=== PATIENT | female | born 1985 | race Caucasian/White ===

== ENCOUNTER 2019-03-25 13:30 | Outpatient (RCR) | payer BC, SELFPAY ==
[2019-02-01 09:59] LABS: Hematocrit 35.4 % (37.0-47.0); Hemoglobin 11.6 g/dL (12.0-15.0)
[2019-02-01 10:11] LABS: Glucose 1 Hour PP 50gm Dose 119 mg/dL
[2019-02-01 11:00] LABS: HIV 1/2 Ab P24 Ag Result Negative (Negative); Hepatitis C Virus Antibody Negative (Negative)
[2019-02-01] MEDS: RHO(D) IMMUNE GLOBULIN 300 MCG SYRINGE IM (15:17)
[2019-02-04 08:23] LABS: Rapid Plasma Reagin Non-Reactive (NonReactive)
== END 2019-04-19 11:43 | disposition home or self-care (01) ==
LOC: ANHOBOP 13:30
PROVIDERS: Visit Provider Advanced Practice Midwife
DX: Z36.89 Encounter for other specified antenatal screening (principal); Z29.13 Encounter for prophylactic Rho(D) immune globulin; O36.0990 Maternal care for other rhesus isoimmunization, unspecified trimester, not applicable or unspecified; Z3A.00 Weeks of gestation of pregnancy not specified
CPT/HCPCS: 36415; 82947; 85014; 85018; 86592; 86703; 86803; 86850; 86900; 86901; 90384; 96372; G0432; J2790

== ENCOUNTER 2019-04-18 23:00 | Inpatient (IN) | payer BC, SELFPAY ==
--- NOTE | 2019-04-18 23:00 | LDADM ---
This patient, Patsy Bertrand, was admitted to Labor/Delivery/Recovery 106 on 04/18/19 at 23:00. Plans for labor, pain management and were discussed with patient. Patient/family oriented to hospital policies and general routines including ID bracelet, bed and alarms, visiting hours, pain management, procedures, bathroom and other care routines, personal items, smoking policy, room service/diet and guest tray routines, security routines, and visiting hours. Patient/Family are encouraged to report perceived risks to care and to ask questions if they do not understand what they are told or what they should do. See OBIX for further documentation.
[2019-04-18 23:30] VITALS: TEMP 36.6; BMI 27.6
[2019-04-18 23:33] VITALS: BP 107/80; PULSE 137
[2019-04-18 23:36] LABS: Basophils Percent Auto 0.1 % (0.2-1.2); Eosinophils Absolute Auto 0.1 K/mm3 (0-0.3); Eosinophils Percent Auto 0.7 % (0-4.4); Hematocrit 36.5 % (37.0-47.0); Hemoglobin 12.3 g/dL (12.0-15.0); Immature Granulocyte Absolute 0.03 K/mm3 (0.00-0.031); Immature Granulocyte Percent A 0.4 % (0-0.5); Lymphocytes Absolute Auto 1.47 K/mm3 (0.9-3.2); Mean Corpuscular HGB Conc 33.7 g/dl (32-36); Mean Corpuscular Hemoglobin 30.4 pg (26-34); Mean Corpuscular Volume 90.1 fl (80-100); Mean Platelet Volume 11.5 fl (7.4-10.4); Monocytes Absolute Auto 0.5 K/mm3 (0.1-0.6); Monocytes Percent Auto 7.6 % (2.6-8.5); Neutrophils Absolute Auto 4.6 K/mm3 (1.3-6.7); Neutrophils Percent Auto 69.2 % (45.5-73.1); Platelet Count Result 159 k/mm3 (150-375); Red Blood Count 4.05 M/mm3 (4.2-5.4); Red Cell Distribution Width 12.9 % (11.5-14.5); White Blood Count 6.7 K/mm3 (4.5-10.0)
[2019-04-18 23:46] VITALS: BP 133/103; PULSE 92
[2019-04-19] VITALS (45 sets, daily range): BP systolic 79–119; BP diastolic 43–85; PULSE 69–110; RESP 16; TEMP 36.6–36.9; O2SAT 98–100
[2019-04-19] MEDS: LACTATED RINGERS 1,000 ML 125 ML IV CONT ×2 (03:53→10:20)
--- NOTE | 2019-04-19 06:21 | P.PNAN_ITS ---
Anes - Eval Pre Procedure Procedure: Labor epidural Date/Time: 04/19/19 06:21 Surgeon: Mauricio Bay M.D. Preop Diagnosis: pain during labor Pre Op Diagnosis: srom Patient Data Age: 33 Gender: F Height: 1.68 m Weight: 77.5 kg Last Vital Signs Temp 36.6 C 04/19/19 05:16 Pulse 85 04/19/19 06:17 BP 108/72 04/19/19 06:17 Allergies Allergy/AdvReac Type Severity Reaction Status Date / Time Sulfa (Sulfonamide Allergy Unknown Unknown Verified 03/25/19 13:34 Antibiotics) Home Medications Medication Instructions Recorded Confirmed Type PNV cmb#95-ferrous fumarate-FA 1 tablet PO DAILY 03/25/19 04/18/19 History [] Laboratory Tests 04/18/19 04/18/19 04/18/19 23:26 23:26 23:26 WBC 6.7 K/mm3 K/mm3 (4.5-10.0) RBC 4.05 M/mm3 L M/mm3 (4.2-5.4) Hgb 12.3 g/dL g/dL (12.0-15.0) Hct 36.5 % L % (37.0-47.0) MCV 90.1 fl fl (80-100) MCH 30.4 pg pg (26-34) MCHC 33.7 g/dl g/dl (32-36) RDW 12.9 % % (11.5-14.5) Plt Count 159 k/mm3 k/mm3 (150-375) MPV 11.5 fl H fl (7.4-10.4) Immature Gran % (Auto) 0.4 % % (0-0.5) Neut % (Auto) 69.2 % % (45.5-73.1) Lymph % (Auto) 22.0 % % (18.3-44.2) [place] % (Auto) 7.6 % % (2.6-8.5) Eos % (Auto) 0.7 % % (0-4.4) Baso % (Auto) 0.1 % L % (0.2-1.2) Lymph # (Auto) 1.47 K/mm3 K/mm3 (0.9-3.2) [place] # (Auto) 0.5 K/mm3 K/mm3 (0.1-0.6) Eos # (Auto) 0.1 K/mm3 K/mm3 (0-0.3) Baso # (Auto) 0.0 K/mm3 K/mm3 (0.0-0.1) Abs Immat Gran (auto) 0.03 K/mm3 K/mm3 (0.00-0.031) Absolute Neuts (auto) 4.6 K/mm3 K/mm3 (1.3-6.7) Absolute Nucleated RBC 0.0 K/mm3 K/mm3 (0.0-0.012) Nucleated RBC % 0.0 % % (0.0-0.2) RPR Pending Blood Type B Negative Antibody Screen Negative Patient hx anesthesia problems: none Family hx anesthesia problems: none PMFSH Social History Social History Smoking status: Never smoker Alcohol intake: current Substance use: never Spiritual care concerns: No Exam Day of Procedure 04/19/19 06:21
[2019-04-19 07:31] LABS: Rapid Plasma Reagin Non-Reactive (NonReactive)
--- NOTE | 2019-04-19 07:36 | WPDOBADMIT ---
Obstetrics - Admit Note Admission Note: record reviewed. No pertinent additions to the history and/or any subsequent changes in the physical findings that are not consistent with the expected course of the were found. admitted after ROM. 40 weeks gestation Additions to the history and/or subsequent changes in the physical findings follow. None.
[2019-04-19] MEDS: ONDANSETRON INJ 4 MG/2 ML VIAL IV PUSH (10:33)
--- NOTE | 2019-04-19 12:38 | PM.OBPRVD ---
OB - Delivery Note Procedure Delivery date: 04/19/19 Procedure: vaginal delivery Intrapartal events: None Induction method: none Delivery augmentation: pitocin Delivery monitor: external FHT and external uterine Laceration description: None Estimated blood loss (mL): 270 Anesthesia type: Epidural Disposition: other () Baby Date of : 04/19/19 Time of : 12:13 Weeks of gestation at delivery: 40 Weight (pounds): 8 Weight (ounces): 14 presentation: vertex position: Left Occiput Anterior Placenta delivery description: Spontaneous cord vessel description: 3 Vessels and Clamped/Cut score one minute: 8 score five minutes: 9
[2019-04-19] MEDS: MISOPROSTOL 200 MCG TABLET 800 MCG (12:40)
[2019-04-19] MEDS: METHYLERGONOVINE MALEATE 0.2 MG/ML VIAL IM (12:50)
[2019-04-19] MEDS: BENZOCAINE 20% AER SPR (*SP) 56 GM CAN 1 SPRAY TOPICAL (13:39)
[2019-04-19] MEDS: WITCH HAZEL 40 PADS 1 PAD TOPICAL (13:39)
--- NOTE | 2019-04-19 15:08 | PC.NURSE ---
Patient transferred to post room #283 via wheelchair. Support person present. Oriented to unit, room, information board, rooming in, admission packet and security measures. Patient verbalizes understanding.
[2019-04-20] MEDS: IBUPROFEN 600 MG TABLET PO ×3 (01:59→20:19)
[2019-04-20 05:22] LABS: Hematocrit 34.1 % (37.0-47.0); Hemoglobin 11.5 g/dL (12.0-15.0)
--- NOTE | 2019-04-20 06:51 | WPDANLDPN2 ---
Anes-Prog Note L&D Date/Time: 04/20/19 06:51 Comfortable throughout: labor and delivery Neuraxial method: epidural Epidural/Spinal procedure site: clean & non-tender Neuro status: Neuro function grossly intact. Cardiovascular status: normal Respiratory status: normal Airway patency: baseline Mental status: baseline Post-Op hydration status: normal Vital Signs: Last Vital Signs Temp 36.8 C 04/19/19 18:45 Pulse 84 04/19/19 18:45 Resp 16 04/19/19 18:45 BP 106/77 04/19/19 18:45 Pulse Ox 98 04/19/19 15:00 I/O: Intake & Output 04/19/19 04/19/19 04/20/19 15:59 23:59 07:59 Intake Total 2500 Output Total 230 Balance 2270 Post-procedural complaints: none Patient feedback: Patient satisfied with anesthetic care.
[2019-04-20 08:00] VITALS: BP 118/68; PULSE 62; RESP 14; TEMP 36.6
[2019-04-20] MEDS: MULTIVIT/MIN/PREN/FOL AC/IRON TABLET 1 TAB PO (08:40)
[2019-04-20] MEDS: DOCUSATE SODIUM 100 MG CAPSULE PO (08:40)
--- NOTE | 2019-04-20 08:49 | PM.OBPNVD ---
OB - PN: Subj Subjective Date/time seen: 04/20/19 08:49 Patient comments: no complaints baby status: doing well [place] feeding status: exclusively breast feeding OB - PN: Obj Data Labs CBC & Chem 7: 04/20/19 04:58 Labs: Laboratory Results - last 24 hr 04/20/19 04/20/19 04:58 04:58 Hgb 11.5 L Hct 34.1 L Blood Type B Negative Antibody Screen Negative Screen Negative Baby's Blood Type A pos Baby's AMBREEN Negative Doses of RhIg Required 1 OB - PN A/P Plan day: 1 Plan: routine care Time Spent With Patient Time: Total time spent is greater than 50% in coordination of care (as documented) at patient's floor/unit and/or counseling patient: Review of Systems Review of Systems: All systems reviewed & are unremarkable except as noted in HPI and below Constitutional: Constitutional: Reports as per HPI Cardiovascular: Cardiovascular: Reports as per HPI Respiratory: Respiratory: Reports as per HPI Gastrointestinal: Gastrointestinal: Reports as per HPI Genitourinary: Genitourinary: Reports no additional female genitourinary complaints Integumentary/Breasts: Skin/Breast: Reports system reviewed and no additional complaints, except as docu Neurologic: Reports system reviewed and no additional complaints, except as documented Exam Const: General: comfortable Chest: Breast/axilla inspection: normal inspection of the breasts Resp: Effort & Inspection: normal respiratory effort Psych: Appearance: grossly normal Mental Status: mental status grossly normal Affect: normal affect Attitude: cooperative Judgement: Good judgement present (Psych)
--- NOTE | 2019-04-20 08:51 | P.DS_ITS ---
OB - DS: Summary OB Procedures : None OB Procedures Intrapartum: Spontaneous Vag Delivery OB Procedures: : None Time Spent with Patient Time attestation: Total time spent providing and/or coordinating discharge services: Exam Const: General: comfortable Chest: Breast/axilla inspection: normal inspection of the breasts Resp: Effort & Inspection: normal respiratory effort Cardio: Rate: regular rate GI: GI Palp: Yes Soft to palpation Psych: Appearance: grossly normal Mental Status: mental status grossly normal Affect: normal affect Attitude: cooperative Thought content: Yes Normal thought content present Judgement: Good judgement present (Psych) DS: Data Data Completed and Pending Labs on day of discharge: Labs from last 24 hours 04/20/19 04/20/19 04:58 04:58 Hgb 11.5 L Hct 34.1 L Blood Type B Negative Antibody Screen Negative Screen Negative Baby's Blood Type A pos Baby's AMBREEN Negative Doses of RhIg Required 1 Discharge Plan Discharge Attending physician on discharge: [place] Discharging Clinician: Shaniqua Nelson Anticipated Discharge Date/Time: 04/20/19 18:52 Patient Disposition: Home, Self-Care Activity: pelvic rest Diet: regular Patient Instructions: Antibiotic Form Stand Alone Forms: General Discharge Information Follow-up/Referrals: Shaniqua Nelson CNM [Certified Nurse Carpet Journeyman] - 4 Weeks Discharge Medications: Continued PNV cmb#95-ferrous fumarate-FA [] 28 mg iron- 800 mcg Tablet 1 tablet PO DAILY RF: 0 Date of admission: 04/18/19 23:00 Primary Care Provider: PHYSICIAN,RAILWAY SIGNAL ELECTRICIAN Admitting Provider: [place] Attending physician on admission: [place]
--- NOTE | 2019-04-20 08:51 | P.PNOB_ITS ---
OB - Triage/Final Diagnosis Evaluation Laboratory results: Laboratory Tests 04/18/19 04/18/19 04/18/19 23:26 23:26 23:26 WBC 6.7 RBC 4.05 L Hgb 12.3 Hct 36.5 L MCV 90.1 MCH 30.4 MCHC 33.7 RDW 12.9 Plt Count 159 MPV 11.5 H Immature Gran % (Auto) 0.4 Neut % (Auto) 69.2 Lymph % (Auto) 22.0 [place] % (Auto) 7.6 Eos % (Auto) 0.7 Baso % (Auto) 0.1 L Lymph # (Auto) 1.47 [place] # (Auto) 0.5 Eos # (Auto) 0.1 Baso # (Auto) 0.0 Abs Immat Gran (auto) 0.03 Absolute Neuts (auto) 4.6 Absolute Nucleated RBC 0.0 Nucleated RBC % 0.0 RPR Non-reactive Blood Type B Negative Antibody Screen Negative Screen Baby's Blood Type Baby's AMBREEN Doses of RhIg Required 04/20/19 04/20/19 04:58 04:58 WBC RBC Hgb 11.5 L Hct 34.1 L MCV MCH MCHC RDW Plt Count MPV Immature Gran % (Auto) Neut % (Auto) Lymph % (Auto) [place] % (Auto) Eos % (Auto) Baso % (Auto) Lymph # (Auto) [place] # (Auto) Eos # (Auto) Baso # (Auto) Abs Immat Gran (auto) Absolute Neuts (auto) Absolute Nucleated RBC Nucleated RBC % RPR Blood Type B Negative Antibody Screen Negative Screen Negative Baby's Blood Type A pos Baby's AMBREEN Negative Doses of RhIg Required 1 Vital signs: Vital Signs - 24 hr 04/19/19 08:59 04/19/19 10:17 04/19/19 10:58 Temperature 36.6 C 36.8 C Pulse Rate 88 Respiratory Rate Blood Pressure 115/77 Pulse Oximetry 100 04/19/19 11:00 04/19/19 11:03 04/19/19 11:08 Temperature 36.8 C Pulse Rate Respiratory Rate Blood Pressure Pulse Oximetry 100 100 04/19/19 11:10 04/19/19 11:15 04/19/19 11:20 Temperature Pulse Rate Respiratory Rate Blood Pressure Pulse Oximetry 100 100 100 04/19/19 11:25 04/19/19 11:28 04/19/19 11:33 Temperature Pulse Rate Respiratory Rate Blood Pressure Pulse Oximetry 100 100 100 04/19/19 11:36 04/19/19 11:41 04/19/19 13:55 Temperature Pulse Rate 79 Respiratory Rate Blood Pressure 117/79 Pulse Oximetry 100 100 04/19/19 14:01 04/19/19 14:16 04/19/19 15:00 Temperature 36.9 C Pulse Rate 88 78 90 Respiratory Rate 16 Blood Pressure 112/76 109/67 117/82 Pulse Oximetry 98 04/19/19 18:45 Temperature 36.8 C Pulse Rate 84 Respiratory Rate 16 Blood Pressure 106/77 Pulse Oximetry
[2019-04-20] MEDS: RHO(D) IMMUNE GLOBULIN 300 MCG SYRINGE IM (15:43)
--- NOTE | 2019-04-20 17:31 | PC.NURSE ---
Patient viewed the discharge video Mother & Baby Care, The First Two Weeks . Patient was given the opportunity and encouraged to ask questions. Patient verbalized understanding of information shared and has been given the mother/baby guide for home reference.
[2019-04-20 19:30] VITALS: BP 104/65; PULSE 72; RESP 16; TEMP 36.7
[2019-04-21] MEDS: MULTIVIT/MIN/PREN/FOL AC/IRON TABLET 1 TAB PO (07:51)
[2019-04-21] MEDS: IBUPROFEN 600 MG TABLET PO (07:51)
--- NOTE | 2019-04-21 08:19 | PM.OBPNVD ---
OB - PN: Subj Subjective Date/time seen: 04/21/19 08:19 Patient comments: no complaints baby status: doing well [place] feeding status: exclusively breast feeding OB - PN: Obj Data Labs CBC & Chem 7: 04/20/19 04:58 Labs: Laboratory Results - last 24 hr 04/20/19 04:58 Blood Type B Negative Antibody Screen Negative Screen Negative Baby's Blood Type A pos Baby's AMBREEN Negative Doses of RhIg Required 1 OB - PN A/P Time Spent With Patient Time: Total time spent is greater than 50% in coordination of care (as documented) at patient's floor/unit and/or counseling patient:
--- NOTE | 2019-04-21 08:19 | PM.OBPNVD ---
OB - PN: Subj Subjective Date/time seen: 04/21/19 08:19 OB - PN: Obj Data Labs CBC & Chem 7: 04/20/19 04:58 Labs: Laboratory Results - last 24 hr 04/20/19 04:58 Blood Type B Negative Antibody Screen Negative Screen Negative Baby's Blood Type A pos Baby's AMBREEN Negative Doses of RhIg Required 1 OB - PN A/P Plan day: 2 Plan: discharge home Time Spent With Patient Time: Total time spent is greater than 50% in coordination of care (as documented) at patient's floor/unit and/or counseling patient: Review of Systems Review of Systems: All systems reviewed & are unremarkable except as noted in HPI and below Exam Const: General: comfortable
[2019-04-21 09:00] VITALS: BP 93/61; PULSE 95; RESP 16; TEMP 36.4; O2SAT 98
[2019-04-22 09:56] VITALS: BP 102/70; PULSE 87; RESP 18; TEMP 36.6
== END 2019-04-21 11:30 | disposition home or self-care (01) | DRG 807 ==
LOC: ANHLDR 23:41 → ANHOB2 04-19 14:54
PROVIDERS: Advanced Practice Midwife; Admitting Provider Obstetrics & Gynecology; Visit Provider Obstetrics & Gynecology
DX: O80 Encounter for full-term uncomplicated delivery (principal); Z37.0 Single live birth; Z3A.40 40 weeks gestation of pregnancy
CPT/HCPCS: 36415; 85014; 85018; 85025; 86592; 86850; 86900; 86901; 90384; A9270; J2210; J2405; J2590; J2790; J7120

== ENCOUNTER 2022-11-07 10:03 | Emergency (ER) | payer OTHER, SELFPAY ==
[2022-11-07 10:09] VITALS: BP 111/76; PULSE 90; RESP 14; TEMP 36.8; O2SAT 99
--- NOTE | 2022-11-07 10:39 | ED.URI ---
HPI - URI/Sore Throat General Chief Complaint: Upper Respiratory Infection Stated Complaint: Sore Throat Time Seen by Provider: 11/07/22 10:15 Source: patient Mode of arrival: ambulatory Limitations: no limitations History of Present Illness HPI Narrative: 36-year-old female presents with complaint of sore throat, throat swelling x9 days. Saw her primary care physician 1 week ago. Was given a Medrol Dosepak. Reports pain and swelling continue. Fever and chills when symptoms 1st started but now afebrile. Patient able to swallow oral secretions. 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 All systems reviewed and negative except as noted above. Related Data Allergies Allergy/AdvReac Type Severity Reaction Status Date / Time Sulfa (Sulfonamide Allergy Unknown Unknown Verified 11/07/22 10:22 Antibiotics) Review of Systems Review of Systems: CONSTITUTIONAL: Denies fever, chills, or sweats. EYES: Denies visual changes, redness, or discharge. ENT: Denies rhinorrhea, congestion. Reports sore throat, throat swelling. Denies otalgia. CARDIOVASCULAR: Denies chest pain, palpitations, or edema. RESPIRATORY: Denies cough or dyspnea. GASTROINTESTINAL: Denies abdominal pain, nausea, vomiting, or diarrhea. GENITOURINARY: Denies dysuria or hematuria. SKIN: Denies rash or itching. MUSCULOSKELETAL: Denies back pain, joint pain, or myalgia. NEUROLOGIC: Denies headache, numbness, or weakness. PSYCHIATRIC: Denies anxiety or depression. All other systems reviewed are negative, except as documented in HPI. [facility] Past Medical History Medical History (Updated 11/07/22 @ 10:29 by Mary Kay Price NP) Asthma Family History Family History Mother Family history of mental disorder Thyroid disease Grandparent Family history of lung cancer Family history of emphysema Grandparent Family history of emphysema Family history of lung cancer Father Borderline diabetes Social History Social History (Updated 10/19/22 @ 13:20 by Destiny Whitney MA) Smoking status: Never smoker Alcohol intake: current Alcohol use details: Bi-Weekly Substance use: never Lack of Transportation: No Lack of Food: Never True Current Housing: I Have Housing Concerned About Future Housing: No Difficulty Paying Gas/Electric Bills: No Difficulty Paying for Meds: No Currently Unemployed: No Education: Bachelor's Degree Living arrangements: with family Occupation/Education: occupation Additional occupation/education comments: [employer] Gender identity (if verbalized by the patient): Female Spiritual care concerns: No Agree to blood products: Yes Comments At time of signature, agree with nursing past medical, surgical, social and family history. There is no relevant family history pertinent to the presenting complaint. Exam Narrative: GENERAL: This is a well-nourished, well-developed patient, in no apparent distress. HEAD: normocephalic, atraumatic. EYES: PERRL. Sclera clear/white. Vision is grossly intact. EARS: External ears normal, auditory canals clear and without drainage, TMs normal without perforation. Hearing grossly intact. NOSE: External nose normal with no obvious nasal discharge, nares without redness, no rhinorrhea. THROAT: Mucous membranes moist, erythematous. No exudates. Right tonsil is 2+ left tonsil is 3+. NECK: Neck supple, tender with anterior cervical lymphadenopathy, masses or thyromegaly. CARDIOVASCULAR: Regular rate and rhythm without murmurs, gallops, or rubs. RESPIRATORY: Clear to auscultation. Breath sounds equal bilaterally. No wheezes, rales, or rhonchi. SKIN: warm, Dry, intact with no suspicious lesions or rash, good texture and turgor. NEURO: awake, alert, and oriented to person, place and time. There were no obvious focal neurologic abnormalities.
== END 2022-11-07 10:31 | disposition home or self-care (01) ==
PROVIDERS: Emergency Provider Nurse Practitioner Family; PCP Nurse Practitioner Adult Health
DX: J02.0 Streptococcal pharyngitis (principal); J45.909 Unspecified asthma, uncomplicated
CPT/HCPCS: 87880; 99213; G0463

== ENCOUNTER 2022-11-28 07:23 | Outpatient (CLI) | payer OTHER, SELFPAY ==
[2022-11-28 18:52] LABS: Alanine Aminotransferase 19 U/L (6-35); Albumin Level 3.9 g/dL (3.5-5.1); Alkaline Phosphatase 60 U/L (38-126); Anion Gap 6 mmol/L (8-16); Aspartate Amino Transferase 53 U/L (14-36); Bilirubin,Total 0.4 mg/dL (0.2-1.3); Blood Urea Nitrogen 12 mg/dL (7-17); Calcium 8.7 mg/dL (8.4-10.2); Carbon Dioxide 27 mmol/L (22-30); Chloride 106 mmol/L (98-107); Cholesterol 122 mg/dL (0-200); Estimated Glomerular Filt Rate > 60; Glucose 86 mg/dL (65-110); HDL Direct 46 mg/dL; Potassium 3.9 mmol/L (3.4-5.0); Sodium 139 mmol/L (137-145); Triglycerides 49 mg/dL (<150)
[2022-11-28 19:03] LABS: LDL Cholesterol Direct 58 mg/dL
[2022-11-28 19:15] LABS: Appearance Urine Cloudy (Clear); Bacteria Urine 4+ /hpf; Bilirubin Urine Negative (Negative); Blood Urine 1+ (Negative); Color Urine Yellow (Yellow); Glucose Urine UA Negative (Negative); Ketones Urine Negative (Negative); Leukocyte Esterase Ur 2+ LEU/UL (Negative); Need Manual Microscopic Reviewed; Nitrate Urine Positive (Negative); Protein Urine Negative (Negative); Squamous Epithelial Cell Urine Occasional /hpf (Few); Urobilinogen Urine 0.2 mg/dL (<2.0); WBC Urine 21-50 /hpf; pH Urine 6.5 (5.0-9.0)
[2022-11-28 19:20] LABS: Add Urine Microscopic? YES
[2022-11-28 19:53] LABS: Hematocrit 39.4 % (37.0-47.0); Hemoglobin 12.3 g/dL (12.0-15.0); Mean Corpuscular HGB Conc 31.2 g/dl (32-36); Mean Corpuscular Volume 92.9 fl (80-100); Mean Platelet Volume 10.3 fl (7.4-10.4); Platelet Count Result 236 k/mm3 (150-375); Red Blood Count 4.24 M/mm3 (4.2-5.4); Red Cell Distribution Width 13.3 % (11.5-14.5)
== END 2022-11-28 07:24 | disposition home or self-care (01) ==
PROVIDERS: Family Medicine; PCP Nurse Practitioner Adult Health; Visit Provider Nurse Practitioner Adult Health
DX: R39.9 Unspecified symptoms and signs involving the genitourinary system (principal); Z13.9 Encounter for screening, unspecified; J45.909 Unspecified asthma, uncomplicated
CPT/HCPCS: 36415; 80053; 80061; 81001; 84443; 85027; 87077; 87086; 87186

== ENCOUNTER 2023-11-24 15:44 | Outpatient (CLI) | payer BC, SELFPAY ==
--- NOTE | ~2023-11-24 | US_ITS ---
US OB transvaginal DATE: 11/24/2023 16:13 INDICATION: Gestational age determination TECHNIQUE: Real-time imaging via transvaginal approach, including Doppler. COMPARISON: None FINDINGS: The uterus measures 8 cm sagittal, 6.2 cm AP and 6.5 cm transverse dimension. A normally shaped intrauterine gestational sac is identified, with pole and yolk sac. heart rate of 176 bpm. [place]-rump length averages 1.77 cm, consistent with a weeks 2 days estimated gestational age. The right ovary is not visualized. The left ovary measures 2.4 x 2 x 1.9 cm. No abnormal pelvic mass lesion or abnormal pelvic fluid collection is detected. IMPRESSION: Estimated gestational age is 8 weeks 2 days +/- 5 days with AMBROCIO of 07/03/2024 Reviewed, dictated and finalized at [facility]. Reviewed, dictated and finalized at location [facility].
== END 2023-11-24 15:45 | disposition home or self-care (01) ==
PROVIDERS: PCP Advanced Practice Midwife; Visit Provider Nurse Practitioner Women's Health
DX: O26.21 Pregnancy care for patient with recurrent pregnancy loss, first trimester (principal); Z3A.08 8 weeks gestation of pregnancy
CPT/HCPCS: 76817

== ENCOUNTER 2024-04-17 08:18 | Outpatient (RCR) | payer BC, SELFPAY ==
--- OUTSIDE RECORDS SUMMARY | 2024-04-17 08:52 | XMS_ITS | Patient Health Summary ---
Author Organization [facility] [place] Address [address] [place] [address] Care Team Providers Care Grapple Operator Name Role Phone Javier Fragoso MD Primary Care Provider Note from [facility],non-owned Affiliates and Associated Physician Practices is amultiple site organization consisting of ambulatory clinics and hospital sitesin [place], [place], [place] and [place]. This disclosure is being madepursuant to the Care Everywhere program and may not contain all information available regarding this patient. Last updated 17.[facility] Allergies * Sulfa Drugs(Rash) -Medium Criticality Medications * Be aware that medications may not be up to date on this document. Alwaysverify current medications with the patient. * MV-Min-Fe Fum-FA-DHA ( 1 PO) * Iron, Ferrous Gluconate, 256 (28 FE) MG Active Problems No known active problems Social History Tobacco Use Types Packs/Day Years Used Date Smoking Tobacco: Never Sex and Gender Information Value Date Recorded Sex Assigned at Not on file Gender Identity Not on file Sexual Orientation Not on file Last Filed Vital Signs Vital Sign Reading Time Taken Comments Blood Pressure 120/84 05/01/2017 10:47 AM DISTRICT SALES MANAGER Pulse 121 05/01/2017 10:47 AM DISTRICT SALES MANAGER Temperature 36.8 C (98.3 F) 05/01/2017 10:47 AM DISTRICT SALES MANAGER Respiratory Rate 17 04/01/2016 9:07 AM DISTRICT SALES MANAGER Oxygen Saturation 99% 04/01/2016 9:07 AM DISTRICT SALES MANAGER Inhaled Oxygen Concentration - - Weight 61.2 kg (135 lb) 05/01/2017 10:47 AM DISTRICT SALES MANAGER Height 167.6 cm (5' 6 ) 05/01/2017 10:47 AM DISTRICT SALES MANAGER Body Mass Index 21.79 05/01/2017 10:47 AM DISTRICT SALES MANAGER Procedures * SARS-COV-2 (COVID-19) IN HOUSE(Performed 02/03/2020) Performed for Encounter for laboratory testing for COVID-19 virus * SARS-COV2 (COVID-19) PANEL (ST[facility])(Performed 02/03/2020) Performed for Encounter for laboratory testing for COVID-19 virus Results * (ABNORMAL) SARS-COV-2 (COVID-19) IN HOUSE (02/03/2020 2:10 PM DISTRICT SALES MANAGER) COVID-19 PCR Detected( AA) Not detected 02/04/2020 1:55 PM DISTRICT SALES MANAGER [facility] Microbiology SPECIMEN FROM NASOPHARYNGEAL STRUCTURE / Unknown Collection / Unknown 02/03/2020 2:10 PM DISTRICT SALES MANAGER 02/03/2020 2:10 PM DISTRICT SALES MANAGER Narrative [facility] - 02/04/2020 1:55 PM DISTRICT SALES MANAGER This Real Time RT-PCR assay was developed and its performance characteristics determined by [facility]. This test has been authorized by the Food and Drug administration (FDA)under an Emergency Use Authorization (EUA). This test has been validated in accordance with the FDA's guidance document Policy for Diagnostic Testing in Laboratories Certified to perform High Complexity Testing under CLIA prior to Emergency Use Authorization for Coronavirus Disease-2019 during the Public Health Emergency issued on May 04, 2019. FDA independent review of this validation is pending. This test is only authorized for the duration of time the declaration that circumstances exist justifying the authorization of emergency use of in vitro diagnostic tests for detection of SARS-CoV-2 virus and/or diagnosis of COVID-19 infection under section 564(b)(1) of the Act, 21 U.S.C 360bbb-3 (b)(1), unless the authorization is terminated or revoked sooner. Fact Sheets for this EUA assay are available upon request. Omayra Stafford [facility] - MICROBIOLOGY ORDERABLES [facility] [address] [place] [address], [facility] [phone] Care Teams Grapple Operator Relationship Specialty Start Date End Date Javier Fragoso MD [address] [place] [id number] PCP - General Family Medicine 04/01/16
--- OUTSIDE RECORDS SUMMARY | 2024-04-17 08:52 | XMS_ITS | Referral Summary ---
Author Organization [facility] [address] Address [address] [place] [address] Care Team Providers Care Refractory Specialist Name Role Phone Dick Koch MD Primary Care Provider [phone] Manjit Luo MD Unavailable [phone] Allergies Active Allergy Reactions Criticality Noted Date Comments Sulfa (Sulfonamide Antibiotics) Medications mv-mn-iron [id number]-OV-jhucc6,6 ,9#3 (WOMEN'S MULTI) 18-600 mg-mcg capsule 0 0 4 Active PNV with iqygjqv-yhiz-RF ( VITAMIN PLUS LOW IRON) 27 mg iron- 1 mg tablet take 1 tablet by oral route every day 30 6 4 Active Additional Information Patient not taking.Reported on 07/12/2022 Active Problems No known active problems Immunizations Name Administration Dates Next Due Tdap 07/09/2012 Social History Tobacco Use Types Packs/Day Years Used Date Smoking Tobacco: Never Assessed Alcohol Use Standard Drinks/Week Comments No 0 (1 standard drink = 0.6 oz pur e alcohol) Comments Unknown Sex and Gender Information Value Date Recorded Sex Assigned at Not on file Legal Sex Female 11:50 PM CODING ASSISTANT Gender Identity Not on file Sexual Orientation Not on file Last Filed Vital Signs Vital Sign Reading Time Taken Comments Blood Pressure 112/68 07/12/2022 9:21 AM CDT Pulse 104 07/12/2022 9:21 AM CDT Temperature 37.1 C (98.8 F) 07/12/2022 9:21 AM CDT Respiratory Rate 16 07/12/2022 9:21 AM CDT Oxygen Saturation 98% 07/12/2022 9:21 AM CDT Inhaled Oxygen Concentration - - Weight 69.7 kg (153 lb 9.6 oz) 07/12/2022 9:21 A M CDT Height 167.6 cm (5' 6 ) 07/12/2022 9:21 AM CDT Body Mass Index 24.79 07/12/2022 9:21 AM CDT Plan of Treatment Not on file Insurance [facility] Care Teams Refractory Specialist Relationship Specialty Start Date End Date Dick Koch MD [address] [place] [address] PCP - General 04/27/11 Manjit Luo MD [address] [place] [address] Referring Physician Obstetrics and Gynecology 10/15/18
--- OUTSIDE RECORDS SUMMARY | 2024-04-17 08:52 | XMS_ITS | Clinical Summary ---
Author Organization [facility] Address [address] [place] [address] Care Team Providers Care Neon Light Installer Name Role Phone Javier Fragoso MD Primary Care Provider [phone] Source Comments [facility],non-owned Affiliates and Associated Physician Practices is amultiple site organization consisting of ambulatory clinics and hospital sitesin [place], [place], [place] and [place]. This disclosure is being madepursuant to the Care Everywhere program and may not contain all information available regarding this patient. Last updated 17.[facility] Allergies Active Allergy Reactions Criticality Noted Date Comments Sulfa Drugs Rash Medium 04/01/2016 Medications * Be aware that medications may not be up to date on this document. Alwaysverify current medications with the patient. Medication Sig Dispensed Refills Start Date End Date Status MV-Min-Fe Fum-FA-DHA ( 1 PO) Active Iron, Ferrous Gluconate, 256 (28 FE) MG Active Active Problems No known active problems Social History Tobacco Use Types Packs/Day Years Used Date Smoking Tobacco: Never Sex and Gender Information Value Date Recorded Sex Assigned at Not on file Gender Identity Not on file Sexual Orientation Not on file Last Filed Vital Signs Vital Sign Reading Time Taken Comments Blood Pressure 120/84 05/01/2017 10:47 AM BOAT MECHANIC Pulse 121 05/01/2017 10:47 AM BOAT MECHANIC Temperature 36.8 C (98.3 F) 05/01/2017 10:47 AM BOAT MECHANIC Respiratory Rate 17 04/01/2016 9:07 AM BOAT MECHANIC Oxygen Saturation 99% 04/01/2016 9:07 AM BOAT MECHANIC Inhaled Oxygen Concentration - - Weight 61.2 kg (135 lb) 05/01/2017 10:47 AM BOAT MECHANIC Height 167.6 cm (5' 6 ) 05/01/2017 10:47 AM BOAT MECHANIC Body Mass Index 21.79 05/01/2017 10:47 AM BOAT MECHANIC Plan of Treatment Health Maintenance Due Date Last Done Comments PAP SMEAR 1985 HIV SCREENING 2000 HEPATITIS C SCREENING 11/08/2003 DTAP/TDAP/TD VACCINES (1 - Tdap) 2004 HEPATITIS B VACCINE (1 of 3 - 19+ 3-dose series) 2004 COVID-19 VACCINE (1 - 2023-2 5 season) 2023 INFLUENZA VACCINE (#1) 2023 DEPRESSION SCREENING 03/06/2024 ZOSTER VACCINE (1 of 2) 11/13/2035 HIB VACCINE Aged Out No longer eligi ble based on patient's age to complete this topic HPV VACCINE Aged Out No longer eligi ble based on patient's age to complete this topic MENINGOCOCCAL (Group B) VACCINE Aged Out No longer eligible based on patient's age to complete this topic MENINGOCOCCAL VACCINE Aged Out No junior gwen eligible based on patient's age to complete this topic PNEUMOCOCCAL VACCINE Aged Out No long er eligible based on patient's age to complete this topic Care Teams Neon Light Installer Relationship Specialty Start Date End Date Javier Fragoso MD [address] [place] [address] PCP - General Family Medicine 04/01/16
--- OUTSIDE RECORDS SUMMARY | 2024-04-17 08:52 | XMS_ITS | Data Portability ---
Author Organization [facility] Address [address] [place] [address] Assessment No assessment recorded. Plan of Treatment Reminders Order Date Submit Date Provider Last Modified By Organization Details Last Modified Time Details Appointments None record ed. Lab None record ed. Referral None record ed. Procedures None record ed. Surgeries None record ed. Imaging None record ed. Medication Orders None record ed. Patient TargetsNo targets recorded. Patient InstructionsNo instructions recorded. Reason for Referral None Reported. Results Created Date Observation Date Name Description Value Unit Range Abnormal Flag Note LastModifiedBy Organization Detail LastModifiedTime 09/17/19 20 09/22/2019 pap, LB Pap test thin prep Negati ve for Intrae pithel ial Lesion or Malign carey normal ACCES EVER #: [id number] Sourc e: Cervi karoline/E ndoce rvica l LMP: 2019 Date Taken : 09/16 Speci men Type: ThinP rep Vial Date Repor adriana: 2019 Clini karoline Data: Cytot ech: UBALDO Luis (ASCP ) Date Repor adriana: 2019 Revie wed By: Jayne Anglin ass, CT( CP) Speci men Adequ acy: Satis facto ry for evalu ation No endoc ervic al/tr ansfo rmati on zone compo nent prese nt Gener al Categ oriza tion: NEGAT GAMALIEL FOR INTRA EPITH ELIAL LESIO N OR MALIG SHELIA This speci men has been lexie zed by the ThinP rep Imagi ng Syste m, an inter activ e compu ter syste m which ronak ts the lab in the scree shannan of ThinP rep Pap Test slide sJesse johnsoni ng, the slide was revie wed by a Cytot echno logis t and/o r Patho logis tJesse D N A A S S A Y S R E P O R T TEST NAME RESUL KEVIN ----- ---- ----- -- HPV High Risk Taiwo hayden (TMA) ThinP rep Vial The human papil lomav irus (HPV) High Risk Taiwo hayden is an FDA-a pprov ed in-vi tro ampli fied nucle ic acid test for the quali tativ e detec tion of E6/E7 viral mRNA. Resul ts shoul d be corre lated with patie nt prese ntati on, histo ry, cervi karoline cytol ogy and other clini karoline and labor atory findi ngs. See https ://[employer]/s ites/ defau lt/fi les/2 018-0 3AW- 85982 _002_ 01.pd f for [facility] lucia infor matdacia n. Test perfo rmed by [facility], d/b/a PathGuillermo roucarlos, [address], [place] [address] , Harriet Barrientos ra, DO, Labor atory [facility]. HPV High Risk *HPV NOT DETEC ADRIANA (TYPE S 16, 18, 31, 33, 35, 39, 45, 51, 52, 56, 58, 59, 66, 68) *HPV: The human papil lomav irus (HPV) High Risk Taiwo hayden is an FDA-a pprov ed in-vi tro ampli fied nucle ic acid test for the quali tativ e detec tion of E6/E7 viral mRNA. Resul ts shoul d be corre lated with patie nt prese ntati on, histo ry, cervi karoline cytol ogy and other clini karoline and labor atory findi ngs. See https ://[employer]/s ites/ defau lt/fi les/2 018-0 3AW- 11793 _002_ 01.pd f for [facility] er infor matio n. Test perfo rmed by [facility], d/b/a [facility], [address], [place] [address] , Harriet Barrientos ra, DO, [facility]. End of Repor t Techn ical servi mary beth provi ded by [facility] iated Patho logis [employer] [facility] [employer], [facility], d/b/a [facility], [address] [place] [address] Jim Montano MD, [facility]. Case revie wed and diagn osis rende red at [facility] iat[facility]umas Patho logis [facility] [facility] [employer], [facility], d/b/a [facility], [address] [place] [address] Jim Montano MD, [facility]. CONFI DENTI AL Not Available [facility] ([facility]) [address], [place], [address], 09/22/2019 11:15:08 09/17/19 20 09/22/2019 HPV DNA, high- risk HPV high risk NOT DETECT ED normal Not Available [facility] ([facility]ated [employer] [facility]) [address] [place] [address], [place], [address], 09/22/2019 11:15:08 Result Notes None recorded. Problems Name Problem SNOMED Code Status Onset Date Resolution Date Notes Provider Name and Address Organization Details Recorded Time Normal in multigrav dania 15589479718 4106 Active 2018 Encounter for suprvsn of normal , third trimester ;Practice ID: 0001 Not Available [facility] 0 15:02:52 Term delivered 99409326 Active 2019 Encounter for full-term uncomplic ated delivery; Practice ID: 0001 Not Available [facility] 0 15:02:52 Single live 061979451 Active 2019 Single live ;Pra ctice ID: 0001 Not Available [facility] 0 15:02:52 Gestation period, 40 weeks 50185059 Active 2019 40 weeks gestation of ;Practice ID: 0001 Not Available [facility] 0 15:02:52 Lochia finding Active 2019 Encounter for routine postpartu m follow-up ;Practice ID: 0001 Not Available [facility] 0 15:02:52 Rubella screening status 926673272 Active 2018 Encounter for screening , unspecifi ed;Record ed Elsewhere : No Locati on: [facility] So urce: EHR Chron ic: N Practic e ID: 0001 Bill able Time: 04:00:00 PM Not Available [facility] 0 15:02:52 Problem Notes None recorded. Procedures Surgical History Date Name Laterality Status Provider Name and Address Organization Details Recorded Time 09/17/19 20 Date of Last Pap Smear completed Sheila Mcneill [facility] 10/08/2020 13:13:27 06/05/19 17 Dilation and Curettage completed [facility] 09/16/2019 14:21:39 02/04/20 16 Dilation and Curettage completed [facility] 09/16/2019 14:21:29 tympanoplasty with mastoidectomy, with ossicular chain reconstruction completed [facility] 09/16/2019 14:23:00 Imaging Results None recorded. Procedure Notes None recorded. Medical Equipment None Reported. Allergies Allergen ID Allergen Name Allergen Category Reaction Reaction Severity Criticality Documentation Date Start Date Code Code System Note Provider Name and Address Organization Details Recorded Time 1308 Substance with sulfonami de structure and antibacte rial mechanism of action (substanc e) medicatio n Not available Not available Not available 09/16/2019 [id number] 8003 SNOMED [facility] 0 14:23:20 Medications Name Sig Start Date Stop Date Status Note LastModified by Organization Details LastModified Time Zyrtec 10 mg tablet take 1 tablet by oral route every day active Prescribed Elsewhere: Yes Locatio n: [facility] Jimmy fy By: [email or web address] En counter DateTime: 01/03/2019 04:00:00 PM Not Available Not Available Not Available acyclovir 400 mg tablet TAKE ONE (1) TABLET( S) EVERY 12 HOURS BY ORAL ROUTE FOR FIVE (5) DAYS. active Not Available Not Available No t Available acyclovir active Not Available Not Nova ilable Not Available Zyrtec active Not Available Not Availa ble Not Available Adacel (Tdap Adolesn/Ad ult)(PF)2 Lf-(2.5-5- 3-5)-5 Lf/0.5 mL IM syringe active Not Available Not Available N ot Available 28 mg-800 mcg tablet active Prescribed Elsewhere: Yes Locatio n: [facility] Jimmy fy By: En counter DateTime: 01/03/2019 04:00:00 PM Not Available Not Available Not Available Flucelvax Quad (PF) 60 mcg (15 mcg x 4)/0.5 mL IM syringe active Not Available Not Available N ot Available Flucelvax Quad (PF) 60 mcg (15 mcg x 4)/0.5 mL IM syringe active Not Available Not Available N ot Available Vitals Date Recorded Body height Body mass index (BMI) Body weight Systolic blood pressure Diastolic blood pressure Provider Name and Address Organization Details Last Updated DateTime 10/08/2020 165.1 cm 25.3 kg/m2 65186.04 g 119 mm[Hg] 78 mm[Hg] Tori Andrews, [facility] [address], [place], [address], [facility] 1 13:42:34 Date Recorded Body height Body mass index (BMI) Body weight Body temperature Systolic blood pressure Diastolic blood pressure Provider Name and Address Organization Details Last Updated DateTime 0 169.55 cm 23.7 kg/m2 04679.8 6 g 98.7 [degF] 102 mm[Hg] 82 mm[Hg] Jacinta Monreal [facility] 0 11:28:12 Social History Question Answer Notes LastModified by Organizat ion Details LastModified Time Tobacco Smoking Status Never Smoker Not Available [facility] 01/07/2020 03:28:11 What Is Your Level Of Alcohol Consumption? Occasional [id number] Information not available 01/07/2020 Sex: Unknown Functional Status Question Answer Note LastModified by Organizat ion Details LastModified Time What is your exercise level? Occasional [id number] Information not available 01/07/2020 Mental Status None recorded. Family History Relationship Description Onset Age of this Age Resolved Age Notes LastModified by Organization Details LastModified Time Mother Depressive disorder [email or web address] Not available 2019 14:19:26 Mother Anxiety disorder jgumber Not available 2019 14:19:41 Mother Migraine [email or web address] Not availab le 10/08/2020 12:28:39 Maternal Aunt Depressive disorder jgumber Not available 2019 14:19:26 Maternal Aunt Anxiety disorder jgumber Not available 2019 14:19:41 Brother Migraine [email or web address] Not availa ble 10/08/2020 12:28:39 Maternal Grandmother Malignant tumor of lung jgumber Not available 2019 14:20:17 Paternal Grandmother Malignant tumor of lung jgumber Not available 2019 14:20:17 Maternal Grandfather Chronic obstructive pulmonary disease [email or web address] Not available 10/08 12:28:39 Medical History Condition Response Anemia Y History of STI Asthma Y Gynecological History Statement/Question Response Abnormal Pap N Flow Moderate Date of LMP 09/29/2020 STIs/STDs N Duration of Flow (days) 3 13 Current Control Method Are cycles usually normal Y Sexually Active? Y Menses Monthly Y Date of Last Pap Smear 09/17/2019 LMP Approximate Obstetrics History GPAL:G 4 P 3 0 1 3 Type Value Full Term 3 Spontaneous 1 Living 3 Total 4 Past Encounters Encounter ID Performer Location Encounter Start Date Encounter Closed Date Diagnosis/Indication Diagnosis SNOMED-CT Code Diagnosis ICD10 Code Diagnosis Note [id number] [place] [id number] 09/17/2019 11:11:39 09/24/2019 10:22:12 Gynecologic examination 79479937 Z01.419 Take Calcium with Vitamin D 1200mg daily if not receiving in daily diet. It is strongly advised to have an annual flu shot and up can obtain at most pharmacies . If you have not had a TDap shot in the last 10 years you should obtain one as well. Discussed with patient & provided with informatio n regarding Gardisil vaccine to prevent the 4 strains for HPV that cause cervical cancer if under age 26. Encourage safe sexual practices, to use condoms and limit partners if not already in a monogamous relationsh ip. Do monthly self breast exams. Have mammogram yearly or every other year depending on family history. BRCA testing is now available for patients with strong genetic history of female cancer. If interested contact the office. Engage in daily exercise of low impact aerobic exercise 45-60 minutes 4-5 times weekly. Avoid tobacco and illicit drugs as well as using moderation with alcohol intake less than 1-2 8 oz beverages daily. This lifestyle behavior pattern will lead to less health conditions and longer life span. If BMI greater than 25 weight watchers or dietary consult advised. Patient received above instructio ns, and questions have been answered. If you have any questions please call or respond to this email. Patient was made aware of the patient portal and may obtain a paper copy of today's plan if desired. [id number] Tori Andrews , [facility] [address],[facility] [place] [address] 10/08/2020 12:28:24 10/08/2020 13:57:42 Gynecologic examination [id number] Z01.419 Take Calcium with Vitamin D 1200mg daily if not receiving in daily diet. It is strongly advised to have an annual flu shot and up can obtain at most pharmacies . If you have not had a TDap shot in the last 10 years you should obtain one as well. Discussed with patient & provided with informatio n regarding Gardisil vaccine to prevent the 4 strains for HPV that cause cervical cancer if under age 26. Encourage safe sexual practices, to use condoms and limit partners if not already in a monogamous relationsh ip. Do monthly self breast exams. Have mammogram yearly or every other year depending on family history. BRCA testing is now available for patients with strong genetic history of female cancer. If interested contact the office. Engage in daily exercise of low impact aerobic exercise 45-60 minutes 4-5 times weekly. Avoid tobacco and illicit drugs as well as using moderation with alcohol intake less than 1-2 8 oz beverages daily. This lifestyle behavior pattern will lead to less health conditions and longer life span. If BMI greater than 25 weight watchers or dietary consult advised. Patient received above instructio ns, and questions have been answered. If you have any questions please call or respond to this email. Patient was made aware of the patient portal and may obtain a paper copy of today's plan if desired. Pap/hpv hx wnlPap/hpv 2020 wnlOpts for q3-5yr pap/hpv testing per asccp unless otherwise indicated. Decline std screeningC onsidering menstrual cupNo issue or concerns this year. Health Concerns Section Related Observation LastModified by Organization Detai ls LastModified Time None Recorded Concern Status LastModified by Organization Details LastModified Time None Recorded Advance Directives Directive None Recorded Payers Encounter Date Sequence Insurance Name Policy Number Policy Claire Covered Member ID Claire Member ID Guarantor Name 09/17/2019 1 [place] [id number] Patsy Bertrand [id number] Patsy Bertrand 10/08/2020 1 [place] [id number] Patsy Bertrand [id number] Patsy Jerzy Notes Date Note Type Note Provider Name and Address Organization Details Recorded Time 09/17/2019 text/html Annual GYNReport ed bypatient.Menstrua l cycle:Normal menses Urinary symptoms:No hematuria; No incontinence Vulva:No genital lesion Vagina:Normal vaginal discharge Breast:No breast pain; No breast lump; No nipple discharge Sexual complaints:No sexual complaints; No pain during intercourse; Normal libido Menopausal Symptoms:No menopausal symptoms; Normal vaginal lubrication Psychological symptoms:No depression; No anxiety; No PMDD Autumn bonilla [facility] 09/17/2019 11:45:17 10/08/2020 text/html Annual GYNReport ed bypatient.History: no gynecologic complaints Menstrual cycle:Normal menses Urinary symptoms:No hematuria; No incontinence Vulva:No genital lesion Vagina:Normal vaginal discharge Breast:No breast pain; No breast lump; No nipple discharge Current Contraception:Sati sfied with current contraception; Monogamous relationship; Natural family planning methods used. Sexual complaints:No sexual complaints; No pain during intercourse; Normal libido Menopausal Symptoms:No menopausal symptoms; Normal vaginal lubrication Psychological symptoms:No depression; No anxiety; No PMDD Preventive measures:Encourage self breast examination; Encourage regular exercise; Encourage no tobacco use; Encourage regular mammograms starting age 40; Followed with Q3 year pap smear and high risk HPV typing Tori Andrews JASON- [address], [place], [address], [facility] 10/08/2020 13:45:04 OBGyn Episode Ob Episode Information Episode Created Date Number of Fetuses Patient Bloodtype Patient rh Status Prepregnancy Weight lbs Domestic Partner Domestic Partner Phone Father Name Acoustical Logging Engineer Status 09/17/19 20 1 CLOSED Fetus Data First Name Last Name Admitted to NICU Weight (g) Sex Living Outcome Pediatric Complications Fetus ID Race Codes Race Delivery Type Full Term 2882 Vaginal Delivery Rosalio Calculation Initial Rosalio Date Initial Exam Date Initial Exam Provider Initial Ultrasound Date Last Menstrual Period Date Ultra Sound Weeks Gestation 0 Eighteen To Twenty Week Rosalio Update Ultra Sound Date Fundal Height At Umbil Quickening Date Ultra Sound Latest Weeks Gestation Final Rosalio Confirmed By Final Rosalio Confirmed Date Final Rosalio Date Ultra Sound Latest Days Gestation 0 0 Menstrual History Last Menstrual Date Menses Monthly On Bcp Conception Prior Menses Frequency Hcg Plus Date Menarche Onset Age Delivery Information Delivery Date Delivery Type Labor Anesthesia Weeks Gestation Incision Type Labor Labor Length Hrs Delivered By Post Complications Tubal Sterilization Discharge Date Comments 5 Discharge Information Feeding Method Contraceptive Method Maternal HG B and HCT Levels Ob Episode Information Episode Created Date Number of Fetuses Patient Bloodtype Patient rh Status Prepregnancy Weight lbs Domestic Partner Domestic Partner Phone Father Name Acoustical Logging Engineer Status 09/17/19 20 1 CLOSED Fetus Data First Name Last Name Admitted to NICU Weight (g) Sex Living Outcome Pediatric Complications Fetus ID Race Codes Race Delivery Type Full Term 2881 Vaginal Delivery Rosalio Calculation Initial Rosalio Date Initial Exam Date Initial Exam Provider Initial Ultrasound Date Last Menstrual Period Date Ultra Sound Weeks Gestation 0 Eighteen To Twenty Week Rosalio Update Ultra Sound Date Fundal Height At Umbil Quickening Date Ultra Sound Latest Weeks Gestation Final Rosalio Confirmed By Final Rosalio Confirmed Date Final Rosalio Date Ultra Sound Latest Days Gestation 0 0 Menstrual History Last Menstrual Date Menses Monthly On Bcp Conception Prior Menses Frequency Hcg Plus Date Menarche Onset Age Delivery Information Delivery Date Delivery Type Labor Anesthesia Weeks Gestation Incision Type Labor Labor Length Hrs Delivered By Post Complications Tubal Sterilization Discharge Date Comments 0 Discharge Information Feeding Method Contraceptive Method Maternal HG B and HCT Levels Ob Episode Information Episode Created Date Number of Fetuses Patient Bloodtype Patient rh Status Prepregnancy Weight lbs Domestic Partner Domestic Partner Phone Father Name Acoustical Logging Engineer Status 09/17/19 20 1 CLOSED Fetus Data First Name Last Name Admitted to NICU Weight (g) Sex Living Outcome Pediatric Complications Fetus ID Race Codes Race Delivery Type , Spontane ous [id number] Rosalio Calculation Initial Rosalio Date Initial Exam Date Initial Exam Provider Initial Ultrasound Date Last Menstrual Period Date Ultra Sound Weeks Gestation 0 Eighteen To Twenty Week Rosalio Update Ultra Sound Date Fundal Height At Umbil Quickening Date Ultra Sound Latest Weeks Gestation Final Rosalio Confirmed By Final Rosalio Confirmed Date Final Rosalio Date Ultra Sound Latest Days Gestation 0 0 Menstrual History Last Menstrual Date Menses Monthly On Bcp Conception Prior Menses Frequency Hcg Plus Date Menarche Onset Age Delivery Information Delivery Date Delivery Type Labor Anesthesia Weeks Gestation Incision Type Labor Labor Length Hrs Delivered By Post Complications Tubal Sterilization Discharge Date Comments 6 Discharge Information Feeding Method Contraceptive Method Maternal HG B and HCT Levels Ob Episode Information Episode Created Date Number of Fetuses Patient Bloodtype Patient rh Status Prepregnancy Weight lbs Domestic Partner Domestic Partner Phone Father Name Acoustical Logging Engineer Status 09/17/19 20 1 DELETED Rosalio Calculation Initial Rosalio Date Initial Exam Date Initial Exam Provider Initial Ultrasound Date Last Menstrual Period Date Ultra Sound Weeks Gestation 0 Eighteen To Twenty Week Rosalio Update Ultra Sound Date Fundal Height At Umbil Quickening Date Ultra Sound Latest Weeks Gestation Final Rosalio Confirmed By Final Rosalio Confirmed Date Final Rosalio Date Ultra Sound Latest Days Gestation 0 0 Menstrual History Last Menstrual Date Menses Monthly On Bcp Conception Prior Menses Frequency Hcg Plus Date Menarche Onset Age Delivery Information Delivery Date Delivery Type Labor Anesthesia Weeks Gestation Incision Type Labor Labor Length Hrs Delivered By Post Complications Tubal Sterilization Discharge Date Comments 7 Discharge Information Feeding Method Contraceptive Method Maternal HG B and HCT Levels Ob Episode Information Episode Created Date Number of Fetuses Patient Bloodtype Patient rh Status Prepregnancy Weight lbs Domestic Partner Domestic Partner Phone Father Name Acoustical Logging Engineer Status 09/17/19 20 1 CLOSED Fetus Data First Name Last Name Admitted to NICU Weight (g) Sex Living Outcome Pediatric Complications Fetus ID Race Codes Race Delivery Type Full Term 2880 Vaginal Delivery Rosalio Calculation Initial Roaslio Date Initial Exam Date Initial Exam Provider Initial Ultrasound Date Last Menstrual Period Date Ultra Sound Weeks Gestation 0 Eighteen To Twenty Week Rosalio Update Ultra Sound Date Fundal Height At Umbil Quickening Date Ultra Sound Latest Weeks Gestation Final Rosalio Confirmed By Final Rosalio Confirmed Date Final Rosalio Date Ultra Sound Latest Days Gestation 0 0 Menstrual History Last Menstrual Date Menses Monthly On Bcp Conception Prior Menses Frequency Hcg Plus Date Menarche Onset Age Delivery Information Delivery Date Delivery Type Labor Anesthesia Weeks Gestation Incision Type Labor Labor Length Hrs Delivered By Post Complications Tubal Sterilization Discharge Date Comments 8 Discharge Information Feeding Method Contraceptive Method Maternal HG B and HCT Levels
--- OUTSIDE RECORDS SUMMARY | 2024-04-17 08:52 | XMS_ITS | Referral Summary ---
Author Organization [facility] [employer] Address [address] [place] [address] Care Team Providers Care Group President Name Role Phone Javier Fragoso MD Primary Care Provider [phone] Source Comments [facility] [employer],non-owned Affiliates and Associated Physician Practices is amultiple site organization consisting of ambulatory clinics and hospital sitesin [place], [place], [place] and [place]. This disclosure is being madepursuant to the Care Everywhere program and may not contain all information available regarding this patient. Last updated 17.[facility] [employer] Allergies Active Allergy Reactions Criticality Noted Date [...] Comments Blood Pressure 120/84 05/01/2017 10:47 AM WELL DRILL OPERATOR CABLE TOOL Pulse 121 05/01/2017 10:47 AM WELL DRILL OPERATOR CABLE TOOL Temperature 36.8 C (98.3 F) 05/01/2017 10:47 AM WELL DRILL OPERATOR CABLE TOOL Respiratory Rate 17 04/01/2016 9:07 AM WELL DRILL OPERATOR CABLE TOOL Oxygen Saturation 99% 04/01/2016 9:07 AM WELL DRILL OPERATOR CABLE TOOL Inhaled Oxygen Concentration - - Weight 61.2 kg (135 lb) 05/01/2017 10:47 AM WELL DRILL OPERATOR CABLE TOOL Height 167.6 cm (5' 6 ) 05/01/2017 10:47 AM WELL DRILL OPERATOR [employer]ABLE TOOL Body Mass Index 21.79 05/01/2017 10:47 AM WELL DRILL OPERATOR CABLE TOOL Plan of Treatment Not on file Care Teams Group President Relationship Specialty Start Date End Date Javier Fragoso MD [address] [place] [address] PCP - General Family Medicine 04/01/16
--- OUTSIDE RECORDS SUMMARY | 2024-04-17 08:52 | XMS_ITS | Clinical Summary ---
Author Organization [facility] Address [address] [place] [address] Care Team Providers Care Branch Sales Manager Name Role Phone Dick Koch MD Primary Care Provider [phone] Manjit Luo MD Unavailable [phone] Allergies Active Allergy Reactions Criticality Noted Date Comments Sulfa (Sulfonamide Antibiotics) Medications mv-mn-iron bdu-FR-ixvvd6,6 ,9#3 (WOMEN'S MULTI) 18-600 mg-mcg capsule 0 0 4 Active PNV with pzvuevw-zdgz-OI ( VITAMIN PLUS LOW IRON) 27 mg iron- 1 mg tablet take 1 tablet by oral route every day 30 6 4 Active Additional Information Patient not taking.Reported on 07/12/2022 Active Problems No known active problems Immunizations Name Administration Dates Next Due Tdap 07/09/2012 Medical History Medical History Date Comments Anemia Anemia Family History Medical History Relation Name Comments Other Father 2 Alive and well; Other Mother 2 Alive and well; Hypothyroidism Other 2 Hypothyroidis m; Relation Name Status Comments Father 1 Alive Father 2 Mother 1 Alive Mother 2 Other 1 Alive Other 2 Social History Tobacco Use Types Packs/Day Years Used Date Smoking Tobacco: Never Assessed Alcohol Use Standard Drinks/Week Comments No 0 (1 standard drink = 0.6 oz pur e alcohol) Comments Unknown Sex and Gender Information Value Date Recorded Sex Assigned at Not on file Legal Sex Female 11:50 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 Gender Identity Not on file Sexual Orientation Not on file Obstetrics History Last Filed Vital Signs Vital Sign Reading [...] 07/12/2022 9:21 AM CDT Plan of Treatment Health Maintenance Due Date Last Done Comments Cervical Cancer Screening 1985 Depression Screening 1985 Hepatitis C Screening 1985 Varicella Vaccines (1 of 2 - 13+ 2-dose series) 1998 Hepatitis B Screening 11/13/2003 Regular Well Visit/Exam 18-64 11/13/2003 Influenza Vaccine (#1) 2023 8, 01/23/2017, 12/28/2014 DTaP/Tdap/Td Vaccine (4 - Td or Tdap) 01/23/2027 01/23/2017, 07/05/2014, 07/09/2012 Pneumococcal vaccine <65 Aged Out 07/05/2014 No longer eligible based on patient's age to complete this topic HPV Vaccines Aged Out No longer eligi ble based on patient's age to complete this topic Insurance [facility] P[facility] Care Teams Branch Sales Manager Relationship Specialty Start Date End Date Dick Koch MD [address] [place] [address] PCP - General 04/27/11 Manjit Luo MD [address] [place] [address] Referring Physician Obstetrics and Gynecology 10/15/18
[2024-04-17 10:07] LABS: Hemoglobin 10.9 g/dL (12.0-15.0)
[2024-04-17 10:09] LABS: Glucose 1 Hour PP 50gm Dose 98 mg/dL
[2024-04-17 10:50] LABS: HIV 1/2 Ab P24 Ag Result Negative (Negative)
[2024-04-17 10:51] LABS: Rapid Plasma Reagin Non-Reactive (NonReactive)
[2024-04-17 11:24] LABS: Vitamin D 25 Hydroxy 37.1 ng/mL
[2024-04-19] MEDS: RHO(D) IMMUNE GLOBULIN 300 MCG/2 ML SYRINGE IM (14:29)
== END 2024-07-16 23:59 | disposition home or self-care (01) ==
LOC: ANHLAB 08:18
PROVIDERS: PCP Nurse Practitioner Adult Health; Visit Provider Obstetrics & Gynecology Gynecology
DX: Z11.4 Encounter for screening for human immunodeficiency virus [HIV] (principal); Z11.3 Encounter for screening for infections with a predominantly sexual mode of transmission; Z29.13 Encounter for prophylactic Rho(D) immune globulin; O36.0190 Maternal care for anti-D [Rh] antibodies, unspecified trimester, not applicable or unspecified; Z3A.00 Weeks of gestation of pregnancy not specified
CPT/HCPCS: 36415; 82306; 82947; 85014; 85018; 85461; 86592; 86703; 86850; 86900; 86901; 90384; 96372; G0432; J2790

== ENCOUNTER 2024-06-26 15:57 | Inpatient (IN) | payer BC, SELFPAY ==
[2024-06-26] VITALS (19 sets, daily range): BP systolic 97–124; BP diastolic 70–95; PULSE 85–130; TEMP 36.8; O2SAT 99–100; BMI 28.4
[2024-06-26 16:37] LABS: Basophils Percent Auto 0.1 % (0.2-1.2); Eosinophils Percent Auto 0.6 % (0-4.4); Hematocrit 37.3 % (37.0-47.0); Hemoglobin 12.4 g/dL (12.0-15.0); Immature Granulocyte Absolute 0.03 K/mm3 (0.00-0.031); Immature Granulocyte Percent A 0.4 % (0-0.5); Immature Platelet Fraction Pct 11.1 % (0.9-11.2); Lymphocytes Absolute Auto 1.31 K/mm3 (0.9-3.2); Lymphocytes Percent Auto 18.8 % (18.3-44.2); Mean Corpuscular HGB Conc 33.2 g/dl (32-36); Mean Corpuscular Hemoglobin 30.3 pg (26-34); Mean Corpuscular Volume 91.2 fl (80-100); Mean Platelet Volume 11.6 fl (7.4-10.4); Monocytes Absolute Auto 0.3 K/mm3 (0.1-0.6); Monocytes Percent Auto 4.9 % (2.6-8.5); Neutrophils Absolute Auto 5.2 K/mm3 (1.3-6.7); Neutrophils Percent Auto 75.2 % (45.5-73.1); Platelet Count Result 143 k/mm3 (150-375); Red Blood Count 4.09 M/mm3 (4.2-5.4)
--- NOTE | 2024-06-26 16:39 | LDADM ---
This patient, Patsy Bertrand, was admitted to Labor/Delivery/Recovery 107 on 06/26/24 at 15:57. Plans for labor, pain management and were discussed with patient. Patient/family oriented to hospital policies and general routines including ID bracelet, bed and alarms, visiting hours, pain management, procedures, bathroom and other care routines, personal items, smoking policy, room service/diet and guest tray routines, security routines, and visiting hours. Patient/Family are encouraged to report perceived risks to care and to ask questions if they do not understand what they are told or what they should do. See OBIX for further documentation.
[2024-06-26] MEDS: DINOPROSTONE 10 MG VAG INSERT VAGINAL (16:40)
[2024-06-26 17:28] LABS: HIV 1/2 Ab P24 Ag Result Negative (Negative)
--- OUTSIDE RECORDS SUMMARY | 2024-06-26 17:36 | XMS_ITS | Data Portability ---
Author Organization [facility] Address [address] [place] [address] Assessment No assessment recorded. Plan of Treatment [...] and labor atory findi ngs. See https ://A[employer]/s ites/ defau lt/fi les/2 018-0 3AW- 66475 _002_ 01.pd f for [facility] lucia infor matdacia n. Test perfo rmed by [employer], d/b/a PathGuillermo roucarlos, [address], [place] [address] , Harriet Barrientos ra, DO, Labor atory [facility]. HPV High Risk *HPV NOT DETEC ADRIANA [...] and labor atory findi ngs. See https ://[employer]/s ites/ defau lt/fi les/2 018-0 3AW- 52722 _002_ 01.pd f for [facility] er infor matio n. Test perfo rmed by [employer], d/b/a [employer], [address], [place] [address] , Harriet Barrientos ra, DO, [facility]. End of Repor t Techn ical servi mary beth provi ded by [facility] iated Patho logis [employer], [employer], d/b/a [employer], [address] [place] [address] Jim Montano MD, [facility]. Case revie wed and diagn osis rende red at [facility] [employer] Patho logis [employer], [employer], d/b/a [employer], [address] [place] [address] Jim Montano MD, [facility]. CONFI DENTI AL Not Available [facility] ([facility] [employer]) [address] [facility] [address], [place], [address], 09/22/2019 11:15:08 09/17/19 20 09/22/2019 HPV DNA, high- risk HPV high risk NOT DETECT ED normal Not Available [facility] ([facility]ated [email or web address] [facility]) [address] [place] [address], [place], [address], 09/22/2019 11:15:08 Result Notes None recorded. Problems Name Problem SNOMED Code Status Onset Date Resolution Date Notes Provider Name and Address Organization Details Recorded Time Normal in multigrav dania 38223215866 4106 Active 2018 Encounter for suprvsn of normal , third trimester ;Practice ID: 0001 Not Available [facility] 0 15:02:52 Term delivered 36587635 Active 2019 Encounter for full-term uncomplic ated delivery; Practice ID: 0001 Not Available [facility] 0 15:02:52 Single live 921171562 Active 2019 Single live ;Pra ctice ID: 0001 Not Available [facility] 0 15:02:52 Gestation period, 40 weeks 91336254 Active 2019 40 weeks gestation of ;Practice ID: 0001 Not Available [facility] 0 15:02:52 Lochia finding Active 2019 Encounter for routine postpartu m follow-up ;Practice ID: 0001 Not Available [facility] 0 15:02:52 Rubella screening status 316336957 Active 2018 Encounter for screening , unspecifi ed;Record ed Elsewhere : No Locati on: [facility] So urce: EHR Chron ic: N Practic e ID: 0001 Bill able Time: 04:00:00 PM Not Available [facility] 0 15:02:52 Problem Notes None recorded. Procedures Surgical History Date Name Laterality Status Provider Name and Address Organization Details Recorded Time 09/17/19 20 Date of Last Pap Smear completed Sheila Mcneill [facility] 10/08/2020 13:13:27 06/05/19 17 Dilation and Curettage completed [facility] 09/16/2019 14:21:39 02/04/20 16 Dilation and Curettage completed [facility] 09/16/2019 14:21:29 tympanoplasty with mastoidectomy, with ossicular chain reconstruction completed [facility] 09/16/2019 14:23:00 Imaging Results None recorded. [...] Not available Not available Not available 09/16/2019 [id number] SNOMED [facility] 0 14:23:20 Medications Name Sig Start Date Stop Date Status Note LastModified by Organization Details LastModified Time Zyrtec 10 mg tablet take 1 tablet by oral route every day active Prescribed Elsewhere: Yes Locatio n: [facility] Jimmy fy By: [email or web address] En counter DateTime: 01/03/2019 04:00:00 PM Not [...] tablet active Prescribed Elsewhere: Yes Locatio n: [facility] Jimmy fy By: [email or web address] En counter DateTime: 01/03/2019 04:00:00 PM Not [...] Updated DateTime 10/08/2020 165.1 cm 25.3 kg/m2 83494.04 g 119 mm[Hg] 78 mm[Hg] Tori Andrews, [facility] [address], [place], [address], [facility] 1 13:42:34 Date Recorded Body height Body mass index (BMI) Body weight Body temperature Systolic blood pressure Diastolic blood pressure Provider Name and Address Organization Details Last Updated DateTime 0 169.55 cm 23.7 kg/m2 75971.8 6 g 98.7 [degF] 102 mm[Hg] 82 mm[Hg] Jacinta Monreal [facility] 0 11:28:12 Social History Question Answer Notes LastModified by Organizat ion Details LastModified Time Tobacco Smoking Status Never Smoker Not Available [facility] 01/07/2020 03:28:11 What Is Your Level Of Alcohol Consumption? Occasional [id number] Information not available 01/07/2020 Sex: Unknown Functional Status Question Answer Note LastModified by Organizat ion Details LastModified Time What is your exercise level? Occasional [id number] Information not available 01/07/2020 Mental Status None recorded. Family History Relationship Description Onset Age of this Age Resolved Age Notes LastModified by Organization Details LastModified Time Mother Depressive disorder [email or web address] Not available 2019 14:19:26 Mother Anxiety disorder jgumber Not available 2019 14:19:41 Mother Migraine [email or web address] Not availab le 10/08/2020 12:28:39 Maternal Aunt Depressive disorder jgumber Not available 2019 14:19:26 Maternal Aunt Anxiety disorder jgumber Not available 2019 14:19:41 Brother Migraine [email or web address] Not availa ble 10/08/2020 12:28:39 Maternal Grandmother Malignant tumor of lung jgumber Not available 2019 14:20:17 Paternal Grandmother Malignant tumor of lung jgumber Not available 2019 14:20:17 Maternal Grandfather Chronic obstructive pulmonary disease [email or web address] Not available 10/08 12:28:39 Medical History Condition Response History of STI Anemia Y Asthma Y Gynecological History Statement/Question Response Abnormal [...] SNOMED-CT Code Diagnosis ICD10 Code Diagnosis Note [id number] [address] [place] [address] 4 09/17/2019 11:11:39 09/24/2019 10:22:12 Gynecologic examination [id number] Z01.419 Take Calcium with Vitamin D 1200mg [...] paper copy of today's plan if desired. [id number] Tori Andrews , [facility] [address],[facility] [place] [address] 10/08/2020 12:28:24 10/08/2020 13:57:42 Gynecologic examination [id number] Z01.419 Take Calcium with Vitamin D 1200mg [...] ID Guarantor Name 09/17/2019 1 [place] [id number] Patsy Bertrand [id number] Patsy Bertrand 10/08/2020 1 [place] [id number] Patsy Bertrand [id number] Patsy Jerzy Notes Date Note Type [...] depression; No anxiety; No PMDD Autumn bonilla [facility] 09/17/2019 11:45:17 10/08/2020 text/html Annual GYNReport [...] typing Tori Andrews JASON- [address], [place], [address], [facility] 10/08/2020 13:45:04 OBGyn Episode Ob Episode Information Episode Created Date Number of Fetuses Patient Bloodtype Patient rh Status Prepregnancy Weight lbs Domestic Partner Domestic Partner Phone Father Name Neuropsychiatric Aide Status 09/17/19 20 1 CLOSED Fetus Data [...] Domestic Partner Domestic Partner Phone Father Name Neuropsychiatric Aide Status 09/17/19 20 1 CLOSED Fetus Data [...] Domestic Partner Domestic Partner Phone Father Name Neuropsychiatric Aide Status 09/17/19 20 1 CLOSED Fetus Data [...] Domestic Partner Domestic Partner Phone Father Name Neuropsychiatric Aide Status 09/17/19 20 1 DELETED Rosalio Calculation [...] Domestic Partner Domestic Partner Phone Father Name Neuropsychiatric Aide Status 09/17/19 20 1 CLOSED Fetus Data First Name Last Name Admitted to NICU Weight (g) Sex Living Outcome Pediatric Complications Fetus ID Race Codes Race Delivery Type Full Term [id number] Vaginal Delivery Rosalio Calculation Initial Rosalio Date [...]
--- OUTSIDE RECORDS SUMMARY | 2024-06-26 17:36 | XMS_ITS | Clinical Summary ---
Author Organization [facility] Address [address] [place] [address] Phone Care Team Providers Care Tumblers Supervisor Name Role Phone Unavailable Unavailable Unavailable Reason for Visit and Chief Complaint gynecologic annual exam - The Chief Complaint is: annual Problems Includes: Problems addressed during this encounter and other active Problems Current Visit Onset Date Resolved Date Provider Humaira hayden Status Alcohol Use 12/18/2013 Unknown VEDA LOVING MD Resolved Last Documented On 07/22/2014 1:30PM ; [facility] Note: was Closed. History of Allergic Rhinitis 12/18/2013 Unknown VEDA LOVING MD Resolved Last Documented On 07/22/2014 1:30PM ; [facility] Note: was Closed. History of Depression 12/18/2013 Unknown VEDA LOVING MD Resolved Last Documented On 07/22/2014 1:30PM ; [facility] Note: was Closed. History of Hematologic Disorders 12/18/2013 Unknown VEDA LOVING MD Resolved Last Documented On 07/22/2014 1:30PM ; [facility] Note: was Closed. Past Visits Onset Date Resolved Date Provider Condition Status OTVidal CURR COND-ANTEPARTUM 06/24/2014 VEDA LOVING MD Active Last Documented On 06/24/2014 4:21PM ; [facility] Note: Unchanged SUPERVIS OT NORMAL PREG 06/24/2014 VEDA LOVING MD Active Last Documented On 06/24/2014 4:21PM ; [facility] Note: Unchanged Plan of Treatment Return to the office in 1 year for follow up. Patient to call the office in the meantime if she has other problems or questions. - Last Documented On 01/15/2015 4:42PM ; [facility] Instructions to patient Instructions for patient : B reast Self Exam discussed and technique reviewed Last Documented On 5 4:32PM ; [facility] Assessments Includes: Assessments from this encounter Findings - Fibrocystic disease of breast - Last Documented On 01/15/2015 4:42PM ; [facility] - NORMAL FEMALE EXAM - Last Documented On 01/15/2015 4:42PM ; [facility] Instructions Includes: Instructions from this encounter Instructions to patient Instructions for patient : B reast Self Exam discussed and technique reviewed Last Documented On 5 4:32PM ; [facility] Medical Equipment - Implanted Devices Includes: Current Devices No Medical Equipment Recorded Medications Includes: Medications discussed during this encounter and other current Medications Current Medications (continue as prescribed) Plus/Iron 27-1MG Oral Tablet 04/07/2016 Pro vider: VEDA LOVING MD Diagnosis: One tablet daily Last Documented On 04/07/2016 12:26PM By VEDA LOVING MD ; [facility] Past Medications on file ValACYclovir HCl 1 GM Tablet 05/20/2014 - 12/16/2014 P rovider: VEDA LOVING MD Diagnosis: One tablet daily Last Documented On 05/20/2014 11:49AM By VEDA LOVING MD ; [facility] Medications Administered Includes: Administered Medications from this encounter No Administered Medications Recorded Vital Signs Includes: Vital Signs from this encounter Vital Name 01/15/2015 04:16P Blood Pressure Sitting (mmHg) 110/72 Height (in) 66 Weight (lb) 144 Body Mass Index (kg/m2) 23.2 Body Surface Area (m2) 1.7 Last Documented: On 01/15/2015 4:16PM ; [facility] Results Includes: Results discussed during this encounter No Results Recorded For Specified Dates History of Present Illness Includes: History of Present Illness from this encounter TAMARA VALIENTE is a 29 year old female. - Medication list reviewed Still doing fertility awarness method, but is still breast feeding and doesn't have periiods to track. Still declines to discuss other methods of contraception. Social History Description Last Updated Social history unchanged 01/15/2015 Last Documented On 5 4:42PM ; [facility] Smoking status : Never smoker 01/15/2015 Last Documented On 5 4:42PM ; [facility] Alcohol use 12/18/2013 Last Documented On 5 4:12PM ; [facility] Alcohol use: 2 drinks or less per day oc c alcohol consumption 10/07/2013 Last Documented On 5 4:12PM ; [facility] Daily tea consumption 2 cups 10/07/2013 Last Documented On 5 4:12PM ; [facility] In monogamous relationship 10/07/2013 Last Documented On 5 4:12PM ; [facility] Sexually active with partners in the las t year 10/07/2013 Last Documented On 5 4:12PM ; [facility] Pt prefers to be called: Annita 4 Last Documented On 5 4:12PM ; [facility] Sexually active doing natural family ioana nning per pt 08/17/2012 Last Documented On 5 4:12PM ; [facility] Daily cola consumption was one cans per day WILL HAVE 1 TEA OR SODA A DAY 08/17/2012 Last Documented On 5 4:12PM ; [facility] Age of 1st intercourse was was 22 2011 Last Documented On 5 4:12PM ; [facility] Procedures and Surgical History Includes: Procedures from this encounter Procedures Code Diagnosis Performing Provider Service L ocation Service Date Clinical summary provided to patient Last Documented On 5 4:32PM ; [facility] cervical Pap smear [id number] Last Documented On 5 4:32PM ; [facility] Surgical History Last Updated History of surgery summer. tympanoplasty 12/18/2013 Last Documented On 5 4:12PM ; [facility] Surgical / procedural history TUBES IN E ARS at age 2-3; 2-3 surgeries 08/17/2012 Last Documented On 5 4:12PM ; [facility] Medical History Includes: Medical History addressed during this encounter Description Last Updated 1 P 1 01/15/2015 Last Documented On 5 4:42PM ; [facility] No recent change in medical history 01/04 Last Documented On 5 4:42PM ; [facility] Contraception: natural family planning 1 03/17/2014 Last Documented On 5 4:42PM ; [facility] Sexually active 01/15/2015 Last Documented On 5 4:42PM ; [facility] Baby thriving female vonda 8lbs 4 oz 07/04/2014 at 38 6/7 wks; STA/TK 08/15/2014 Last Documented On 5 4:12PM ; [facility] Fertility awareness method (FEM) 015 Last Documented On 5 4:12PM ; [facility] Infant is breast-feeding 08/15/2014 Last Documented On 5 4:12PM ; [facility] Last pap smear date 10/07/2013 08/15/2014 Last Documented On 5 4:12PM ; [facility] History of allergic rhinitis mob and fob seasonal 12/18/2013 Last Documented On 5 4:12PM ; [facility] History of depression mobs family 2013 Last Documented On 5 4:12PM ; [facility] History of hematologic disorder 12/19/19 14 Last Documented On 5 4:12PM ; [facility] LMP: 10/05/2013 10/07/2013 Last Documented On 5 4:12PM ; [facility] Result: normal 10/07/2013 Last Documented On 5 4:12PM ; [facility] PRIMARY CARE PROVIDER : DANELLE NANCE 08/04 Last Documented On 5 4:12PM ; [facility] Family History Includes: Family History addressed during this encounter Description Last Updated Family history unchanged THY ROID PROBLEMS in her mom and maternal aunts-- underactive, not cancer 08/17/2012 Last Documented On 5 4:12PM ; [facility] Spouse name: JAIMIE 05/04/2011 Last Documented On 5 4:12PM ; [facility] Review of Systems Includes: Review of Systems from this encounter Systemic: No night sweats. Head: No headache. Breasts: No breast lump and no pain in breast. Cardiovascular: No chest pain or discomfort and no palpitations. Pulmonary: No cough. Gastrointestinal: No nausea, no vomiting, no abdominal pain, and no melena. No diarrhea. Genitourinary: No hematuria and no increase in urinary frequency. No dysuria. No genital lesion. Endocrine: Libido has not changed. Musculoskeletal: No muscle aches. Neurological: No dizziness. Psychological: No anxiety and no depression. Skin: No skin lesions. Mental Status Includes: Mental Status from this encounter Description Oriented to time, place, and person No anxiety Functional Status Includes: Functional Status from this encounter No Functional Status Recorded Physical Exam Includes: Physical Exam from this encounter Allergies Includes: Active Allergies Substance Type Reaction Onset Date Resolved Date Statu s Sulfa Antibiotics Allergy 05/04/2011 A ctive Last Documented On 5 10:07AM ; [facility] Encounters Encounter Provider Location Date Check-In Time Check-Out Time Diagnosis TUMOR REGISTRAR EXAM VEDA LOVING MD [facility] 01/16/20 15 3:42PM 5:03PM Normal Female Exam,Breast Fibrocystic Disease Clinical Notes Includes: Clinical Notes from this encounter No Clinical Notes Recorded
--- OUTSIDE RECORDS SUMMARY | 2024-06-26 17:36 | XMS_ITS ---
Author Organization [facility] Address [address] [place] [address] Phone Care Team Providers Care Traffic Sergeant Name Role Phone Unavailable Unavailable Unavailable Problems Includes: Active, inactive, and resolved Problems All Visits Onset Date Resolved Date Provider Condition S tatus OTH CURR COND-ANTEPARTUM 06/24/2014 VEDA LOVING MD Active Last Documented On 06/24/2014 4:21PM ; [facility] Note: Unchanged SUPERVIS OTH NORMAL PREG 06/24/2014 VEDA LOVING MD Active Last Documented On 06/24/2014 4:21PM ; [facility] Note: Unchanged Alcohol Use 12/18/2013 Unknown VEDA LOVING MD Resolved Last Documented On 07/22/2014 1:30PM ; [facility] Note: was Closed. Exposure To Herpes Simplex 12/18/2013 Unknown VEDA LOVING MD Resolved Last Documented On 07/22/2014 1:30PM ; [facility] Note: was Closed. History of Allergic Rhinitis 12/18/2013 Unknown VEDA LOVING MD Resolved Last Documented On 07/22/2014 1:30PM ; [facility] Note: was Closed. History of Depression 12/18/2013 Unknown VEDA LOVING MD Resolved Last Documented On 07/22/2014 1:30PM ; [facility] Note: was Closed. History of Hematologic Disorders 12/18/2013 Unknown VEDA LOVING MD Resolved Last Documented On 07/22/2014 1:30PM ; [facility] Note: was Closed. History of Thyroid Disorders 12/18/2013 Unknown VEDA LOVING MD Resolved Last Documented On 07/22/2014 1:30PM ; [facility] Note: was Closed. Medical History Infections 12/18/2013 Unknown VEDA LOVING MD Resolved Last Documented On 07/22/2014 1:30PM ; [facility] Note: was Closed. Respiratory Disorders 12/18/2013 Unknown VEDA LOVING MD Resolved Last Documented On 07/22/2014 1:30PM ; [facility] Note: was Closed. Plan of Treatment Instructions to patient Instructions for patient : B reast Self Exam discussed and technique reviewed Last Documented On 5 4:32PM ; [facility] Instructions for patient : B reast Self Exam discussed and technique reviewed Last Documented On 4 1:38PM ; [facility] Instructions for patient : B reast Self Exam discussed and technique reviewed Last Documented On 3 3:33PM ; [facility] Discussed Gardasil vaccinati on and recommend vaccination for HPV prevention. Handout given. Patient understands sexual transmission of high-risk HPV and the association with abnormal pap smear and cervical cancer. Recommend to decrease high risk behaviors such as: number or sexual partners and smoking; and to use barrier contracepties Last Documented On 3 3:33PM ; [facility] Instructions for patient : B reast Self Exam discussed and technique reviewed Last Documented On 2 4:37PM ; [facility] Recommend diet and exercise at least 30 min three times per week Last Documented On 2 4:37PM ; [facility] Recommend CBC, TSH, fasting glucose, fasting lipid panel if patient aged 25 or older Last Documented On 2 4:37PM ; [facility] Recommend preventative vacci nation including but not limited to influenza/flu vaccine, DTP, Rubella, Hepatitis B vaccination series Last Documented On 2 4:37PM ; [facility] Assessments Includes: Assessments for all patient encounters Findings Encounter Date Fibrocystic disease of breast INSURANCE OFFICE SUPERVISOR EXAM with VEDA LOVING MD 01/15/2015 Last Documented On 5 4:42PM ; [facility] NORMAL FEMALE EXAM INSURANCE OFFICE SUPERVISOR EXAM with VEDA LOVING MD 01/15/2015 Last Documented On 5 4:42PM ; [facility] Normal routine history and p hysical - POST VISIT with VEDA LOVING MD 08/15/2014 Last Documented On 5 10:31AM ; [facility] Respiratory disorder mob in high school; inhaler only when ill: last 2011: albuterol NEW OB EXAM with VEDA LOVING MD 12/18/2013 Last Documented On 4 3:06PM ; [facility] Breast fibrocystic disease INSURANCE OFFICE SUPERVISOR EXAM with VEDA HAMMOND MD 10/07/2013 Last Documented On 4 1:49PM ; [facility] NORMAL FEMALE EXAM INSURANCE OFFICE SUPERVISOR EXAM with VEDA LOVING MD 10/07/2013 Last Documented On 4 1:49PM ; [facility] NORMAL FEMALE EXAM NEW INSURANCE OFFICE SUPERVISOR EXAM with VEDA BALLESTEROS MD 08/17/2012 Last Documented On 3 3:49PM ; [facility] NORMAL FEMALE EXAM NEW INSURANCE OFFICE SUPERVISOR EXAM with TOMMIE AGUSTIN M.D. 05/04/2011 Last Documented On 2 4:47PM ; [facility] Instructions Includes: Instructions for all patient encounters Instructions to patient Instructions for patient : B reast Self Exam discussed and technique reviewed Last Documented On 5 4:32PM ; [facility] Instructions for patient : B reast Self Exam discussed and technique reviewed Last Documented On 4 1:38PM ; [facility] Instructions for patient : B reast Self Exam discussed and technique reviewed Last Documented On 3 3:33PM ; [facility] Discussed Gardasil vaccinati on and recommend vaccination for HPV prevention. Handout given. Patient understands sexual transmission of high-risk HPV and the association with abnormal pap smear and cervical cancer. Recommend to decrease high risk behaviors such as: number or sexual partners and smoking; and to use barrier contracepties Last Documented On 3 3:33PM ; [facility] Instructions for patient : B reast Self Exam discussed and technique reviewed Last Documented On 2 4:37PM ; [facility] Recommend diet and exercise at least 30 min three times per week Last Documented On 2 4:37PM ; [facility] Recommend CBC, TSH, fasting glucose, fasting lipid panel if patient aged 25 or older Last Documented On 2 4:37PM ; [facility] Recommend preventative vacci nation including but not limited to influenza/flu vaccine, DTP, Rubella, Hepatitis B vaccination series Last Documented On 2 4:37PM ; [facility] Medical Equipment - Implanted Devices Includes: Current and historical Devices No Medical Equipment Recorded Medications Includes: Current and historical Medications Current Medications (continue as prescribed) Plus/Iron 27-1MG Oral Tablet 04/07/2016 Pro vider: EVDA LOVING MD Diagnosis: One tablet daily Last Documented On 04/07/2016 12:26PM By VEDA LOVING MD ; [facility] Past Medications on file Plus/Iron 27-1 MG Tablet 04/10/2015 - 017 Provider: VEDA LOVING MD Diagnosis: One tablet daily (may substitute) Last Documented On 04/07/2016 12:12PM By VEDA LOVING MD ; [facility] ValACYclovir HCl 1 GM Tablet 05/20/2014 - 12/16/2014 P rovider: VEDA LOVING MD Diagnosis: One tablet daily Last Documented On 05/20/2014 11:49AM By VEDA LOVING MD ; [facility] Plus/Iron 27-1 MG O R TABS 04/15/2014 - 04/10/2015 Provider: VEDA Milner Diagnosis: (may substitute) Last Documented On 04/10/2015 12:35PM By VEDA LOVING MD ; [facility] Plus/Iron 27-1 MG OR TABS 01/14/2014 - 2014 Provider: DANELLE NANCE MD Diagnosis: Last Documented On 04/15/2014 4:39PM By VEDA LOVING MD ; [facility] valACYclovir HCl 1 GM OR TABS 12/23/2013 - 05/20/2014 Provider: VEDA LOVING MD Diagnosis: Si po bid x 1 day. Last Documented On 05/20/2014 11:49AM By VEDA LOVING MD ; [facility] Daily Value Multivitamin OR TABS 08/17/2012 - 02/15/20 14 Provider: Diagnosis: Last Documented On 02/14/2014 2:50PM By DONG WAGNER LPN ; [facility] Medications Administered Includes: Administered Medications in patient's chart Medications Administered Diagnosis Date Pro vider influenza vaccine IM INJ VACCIN FOR INFLUENZA 12/19/19 14 VEDA LOVING MD 0.1ml right arm. tolerated well./tyk Last Documented On 4 3:41PM By DONG WAGNER LPN ; [facility] RhoGAM Ultra-Filtered Plus 300 MCG IM INJ 04/15/2014 VEDA LOVING MD Given to pt in right gluteal. Pt tolerat ed it well. No reaction. MR Last Documented On 5 4:55PM By MATT PRYOR ; [facility] Results Includes: Results from 06/27/2023 through 06/26/2024 No Results Recorded For Specified Dates History of Present Illness History of Present Illness not supported for this document type No History of Present Illness Recorded Social History Description Last Updated Social history unchanged 01/15/2015 Last Documented On 5 4:42PM ; [facility] Smoking status : Never smoker 01/15/2015 Last Documented On 5 4:42PM ; [facility] Alcohol use 12/18/2013 Last Documented On 4 3:36PM ; [facility] Alcohol use: 2 drinks or less per day oc c alcohol consumption 10/07/2013 Last Documented On 4 1:49PM ; [facility] Daily tea consumption 2 cups 10/07/2013 Last Documented On 4 1:49PM ; [facility] In monogamous relationship 10/07/2013 Last Documented On 4 1:49PM ; [facility] Non-smoker 10/07/2013 Last Documented On 4 1:49PM ; [facility] Sexually active with partners in the t year 10/07/2013 Last Documented On 4 1:49PM ; [facility] Pt prefers to be called: Annita 4 Last Documented On 4 1:49PM ; [facility] Sexually active doing natural family ioana nning per pt 08/17/2012 Last Documented On 3 3:49PM ; [facility] Daily cola consumption was one cans per day WILL HAVE 1 TEA OR SODA A DAY 08/17/2012 Last Documented On 3 3:49PM ; [facility] Age of 1st intercourse was was 22 2011 Last Documented On 2 4:47PM ; [facility] Not using drugs 05/04/2011 Last Documented On 2 4:47PM ; [facility] Procedures and Surgical History Surgical History Last Updated History of surgery summer. tympanoplasty 12/18/2013 Last Documented On 4 3:36PM ; [facility] Surgical / procedural history TUBES IN E ARS at age 2-3; 2-3 surgeries 08/17/2012 Last Documented On 3 3:49PM ; [facility] No Bilateral salpingo-oophorectomy Last Documented On 2 4:47PM ; [facility] No Breast Biopsy 05/04/2011 Last Documented On 2 4:47PM ; [facility] No Dilation + Curettage 05/04/2011 Last Documented On 2 4:47PM ; [facility] No Ectopic surgery 05/04/2011 Last Documented On 2 4:47PM ; [facility] No Endometrial Ablation 05/04/2011 Last Documented On 2 4:47PM ; [facility] No history of appendectomy 05/04/2011 Last Documented On 2 4:47PM ; [facility] No history of cholecystectomy 05/04/2011 Last Documented On 2 4:47PM ; [facility] No history of Loop electrode excision of cervix (LEEP) 05/04/2011 Last Documented On 2 4:47PM ; [facility] No history of total abdominal hysterecto my 05/04/2011 Last Documented On 2 4:47PM ; [facility] No history of tubal ligation 05/04/2011 Last Documented On 2 4:47PM ; [facility] No history of vaginal hysterectomy Last Documented On 2 4:47PM ; [facility] No Laparoscopic Hysterectomy 05/04/2011 Last Documented On 2 4:47PM ; [facility] No Ovarian Cystectomy 05/04/2011 Last Documented On 2 4:47PM ; [facility] No Tonsillectomy 05/04/2011 Last Documented On 2 4:47PM ; [facility] Medical History Includes: Medical History in patient's chart Description Last Updated 1 P 1 01/15/2015 Last Documented On 5 4:42PM ; [facility] No recent change in medical history 01/04 Last Documented On 5 4:42PM ; [facility] Contraception: natural family planning 1 03/17/2014 Last Documented On 5 4:42PM ; [facility] Sexually active 01/15/2015 Last Documented On 5 4:42PM ; [facility] Baby thriving female vonda 8lbs 4 oz 07/04/2014 at 38 6/7 wks; STA/TK 08/15/2014 Last Documented On 5 10:31AM ; [facility] Fertility awareness method (FEM) 015 Last Documented On 5 10:31AM ; [facility] is breast-feeding 08/15/2014 Last Documented On 5 10:31AM ; [facility] is not bottle-feeding 08/15/2014 Last Documented On 5 10:31AM ; [facility] Last pap smear date 10/07/2013 08/15/2014 Last Documented On 5 10:31AM ; [facility] History of allergic rhinitis mob and fob seasonal 12/18/2013 Last Documented On 4 3:36PM ; [facility] History of depression mobs family 2013 Last Documented On 4 3:36PM ; [facility] History of hematologic disorder 12/19/19 14 Last Documented On 4 3:36PM ; [facility] LMP: 10/05/2013 10/07/2013 Last Documented On 4 1:49PM ; [facility] Result: normal 10/07/2013 Last Documented On 4 1:49PM ; [facility] PRIMARY CARE PROVIDER : DANELLE NANCE 08/04 Last Documented On 3 3:49PM ; [facility] Family History Includes: Family History in patient's chart Description Last Updated No family history of malignant female br east neoplasm 10/07/2013 Last Documented On 4 1:49PM ; [facility] No family history of malignant neoplasm of the large intestine 10/07/2013 Last Documented On 4 1:49PM ; [facility] No family history of malignant neoplasm of the ovary 10/07/2013 Last Documented On 4 1:49PM ; [facility] Family history unchanged THY ROID PROBLEMS in her mom and maternal aunts-- underactive, not cancer 08/17/2012 Last Documented On 3 3:49PM ; [facility] Spouse name: JAIMIE 05/04/2011 Last Documented On 2 4:47PM ; [facility] No family history of diabetes mellitus 0 05/04/2011 Last Documented On 2 4:47PM ; [facility] No family history of heart disease Last Documented On 2 4:47PM ; [facility] No family history of hypercholesterolemi a 05/04/2011 Last Documented On 2 4:47PM ; [facility] No family history of hypertension 2011 Last Documented On 2 4:47PM ; [facility] No family history of uterine cancer 04/07 Last Documented On 2 4:47PM ; [facility] Review of Systems Review of Systems not supported for this document type No Review of Systems Recorded Mental Status Description Oriented to time, place, and person No anxiety Functional Status No Functional Status Recorded Physical Exam Physical Exam not supported for this document type No Physical Exam Recorded Immunizations Includes: Immunizations in patient's chart Vaccine Dose # Date Site Reaction(s) Status Source Influenza (Quadrivalent)36 mo.& older PF 0.5ml (SD) 1 12/18/2013 Complete (Reported) Patient Last Documented On 4 3:39PM ; [facility] Td 1 Complete (Reported) Henny ent Last Documented On 2 4:35PM ; [facility] Allergies Includes: Active, inactive, and resolved Allergies Substance Type Reaction Onset Date Resolved Date Statu s Sulfa Antibiotics Allergy 05/04/2011 A ctive Last Documented On 10:07AM ; [facility] Clinical Notes Includes: Signed Clinical Notes starting from 03/25/2022 No Clinical Notes Recorded
--- OUTSIDE RECORDS SUMMARY | 2024-06-26 17:36 | XMS_ITS ---
Care Plan - [facility] Created on: June 26, 2024 LENA VALIENTE : 1985 Sex: Female Author Organization [facility] Address [address] [place] [address] Phone Care Team Providers Care Mixing Tumbler Operator Name Role Phone Unavailable Unavailable Unavailable
--- OUTSIDE RECORDS SUMMARY | 2024-06-26 17:36 | XMS_ITS | Clinical Summary ---
Author Organization [facility] Address [address] [place] [address] Phone Care Team Providers Care Hvac Services Professional Name Role Phone Unavailable Unavailable Unavailable Reason for Visit and Chief Complaint The Chief Complaint is: 6 week ppv 07/04/14. pt states no problems Problems Includes: Problems addressed during this encounter and other active Problems All Visits Onset Date Resolved Date Provider Condition S tatus OTH CURR COND-ANTEPARTUM 06/24/2014 VEDA LOVING MD Active Last Documented On 06/24/2014 4:21PM ; [facility] Note: Unchanged SUPERVIS OT NORMAL PREG 06/24/2014 VEDA LOVING MD Active Last Documented On 06/24/2014 4:21PM ; [facility] Note: Unchanged Plan of Treatment No Plan of Treatment Recorded Assessments Includes: Assessments from this encounter Findings - Normal routine history and physical - - Last Documented On 08/15/2014 10:31AM ; [facility] Medical Equipment - Implanted Devices Includes: Current Devices No Medical Equipment Recorded Medications Includes: Medications discussed during this encounter and other current Medications Current Medications (continue as prescribed) Plus/Iron 27-1MG Oral Tablet 04/07/2016 Pro vider: VEDA LOVING MD Diagnosis: One tablet daily Last Documented On 04/07/2016 12:26PM By VEDA LOVING MD ; [facility] Medications Administered Includes: Administered Medications from this encounter No Administered Medications Recorded Vital Signs Includes: Vital Signs from this encounter Vital Name 08/15/2014 10:04A Blood Pressure Sitting L 100/82 BP Cuff Size Large Height (in) 66 Weight (lb) 149 Body Mass Index (kg/m2) 24.0 Body Surface Area (m2) 1.8 Last Documented: On 08/15/2014 10:06A M ; [facility] Results Includes: Results discussed during this encounter No Results Recorded For Specified Dates History of Present Illness Includes: History of Present Illness from this encounter TAMARA VALIENTE is a 28 year old female. - Bleeding has stopped about 3 weeks ago - No pain - No problems with nursing --- plans on doing so for about a year' - No urinary symptoms - No depression Social History No Social History Recorded - Smoking Status Unknown Procedures and Surgical History Includes: Procedures from this encounter Procedures Code Diagnosis Performing Provider Service L ocation Service Date Clinical summary provided to patient Last Documented On 5 10:23AM ; [facility] [place] depression scale =3 Last Documented On 5 10:21AM ; [facility] Medical History Includes: Medical History addressed during this encounter Description Last Updated Baby thriving female vonda 8lbs 4 oz 07/04/2014 at 38 6/7 wks; STA/TK 08/15/2014 Last Documented On 5 10:31AM ; [facility] Contraception: 08/15/2014 Last Documented On 5 10:31AM ; [facility] Fertility awareness method (FEM) 015 Last Documented On 5 10:31AM ; [facility] Infant is breast-feeding 08/15/2014 Last Documented On 5 10:31AM ; [facility] is not bottle-feeding 08/15/2014 Last Documented On 5 10:31AM ; [facility] Last pap smear date 10/07/2013 08/15/2014 Last Documented On 5 10:31AM ; [facility] Family History Includes: Family History addressed during this encounter No Family History Recorded Review of Systems Includes: Review of Systems from this encounter No Review of Systems Recorded Mental Status Includes: Mental Status from this encounter No Mental Status Recorded Functional Status Includes: Functional Status from this encounter No Functional Status Recorded Physical Exam Includes: Physical Exam from this encounter Allergies Includes: Active Allergies Substance Type Reaction Onset Date Resolved Date Statu s Sulfa Antibiotics Allergy 05/04/2011 A ctive Last Documented On 5 10:07AM ; [facility] Encounters Encounter Provider Location Date Check-In Time Check-Out Time Diagnosis POST VISIT VEDA LOVING MD [facility] MEDICAL CLAIMS EXAMINER 08/16/19 15 9:49AM 10:35AM Routine History and Physical Clinical Notes Includes: Clinical Notes from this encounter No Clinical Notes Recorded
--- OUTSIDE RECORDS SUMMARY | 2024-06-26 17:36 | XMS_ITS | Clinical Summary ---
Author Organization [facility] Address [address] [place] [phone] Phone Care Team Providers Care Credit Checker Name Role Phone Unavailable Primary Care Provider Unavailabl e Encounters Date Type Department Care Team Description 06/18/2024 External Device Data STL ABSTRACTION Provider, Abstract 06/06/2024 12:45 PM CDT - 06/06/2024 11:59 PM CDT Hospital Encounter [facility] 2022 David Arango [address] [place] [phone] Zafar Gutiérrez MD Discharge Disposition: Home or Self Care 05/22/2024 External Device Data STL ABSTRACTION Provider, Abstract 05/22/2024 External Device Data STL ABSTRACTION Provider, Abstract 05/11/2024 External Device Data STL ABSTRACTION Provider, Abstract 05/10/2024 External Device Data STL ABSTRACTION Provider, Abstract 05/09/2024 7:30 AM SILVER STEWARD - 05/09/2024 11:59 PM SILVER STEWARD Hospital Encounter [facility] David Arango [address] [place] [phone] Mary Carmen Choudhary MD Discharge Disposition: Home or Self Care 05/07/2024 External Device Data STL ABSTRACTION Provider, Abstract 04/23/2024 External Device Data STL ABSTRACTION Provider, Abstract 04/11/2024 7:30 AM SILVER STEWARD - 04/11/2024 11:59 PM SILVER STEWARD Hospital Encounter [facility] David Arango [address] [place] [phone] Chance Palumbo MD Discharge Disposition: Home or Self Care 03/28/2024 External Device Data STL ABSTRACTION Provider, Abstract from Last 3 Months Social History Tobacco Use Types Packs/Day Years Used Date Smoking Tobacco: Never Assessed Comments Unknown Sex and Gender Information Value Date Recorded Sex Assigned at Not on file Legal Sex Female 10:53 AM SILVER STEWARD Gender Identity Not on file Sexual Orientation Not on file Plan of Treatment Health Maintenance Due Date Last Done Comments HEPATITIS B VACCINES (1 of 3 - 19+ 3-dose series) 2004 HPV/Cotest (21-29) 2006 CERVICAL CANCER SCREENING 11/13/2015 HPV/Cotest (30-65) 11/13/2015 PAP SMEAR 11/13/2015 DTAP/TDAP/TD VACCINES (2 - T d or Tdap) 07/09/2022 07/09/2012 INFLUENZA VACCINE (#1) 2023 Preventative Visit- Commercial 03/06/2024 10/08/2020, 09/17/2019 HPV VACCINES Aged Out No longer eligi ble based on patient's age to complete this topic Procedures Procedure Name Priority Date/Time Associated Diagnosis Comments US OB FOLLOW UP PER FETUS Routine 06/06/2024 1:16 PM CDT Multigravida of advanced maternal age in third trimester US OB FOLLOW UP PER FETUS Routine 05/09/2024 8:01 AM SILVER STEWARD Multigravida of advanced maternal age in second trimester US OB FOLLOW UP + TV Routine 04/11/2024 8:09 AM SILVER STEWARD Placenta previa antepartum Multigravida of advanced maternal age in second trimester from Last 3 Months Results * US OB FOLLOW UP PER FETUS (06/06/2024 1:16 PM CDT) Only the most recent of2 resultswithin the time period is included. Anatomical Region Laterality Modality Pelvis Ultrasound 06/06/2024 12:5 1 PM CDT Narrative 06/06/2024 1:17 PM CDT STL FOLLOW UP ----- Pat. Name: PATSY BERTRAND Study Date: 06/06/2024 12:51pm Pat. NO: [id number] Referring MD: REMBERTO JOAQUIN MD Site: [place] [facility] [employer] Project Manager: Lexii Alfaro RDMS : 1985 Age: 38 ----- INDICATION ----- Advanced Maternal Age (AMA), Multigravida Asthma Complicating CODING ----- Diagnoses O99.513: Diseases of the respiratory system complicating O09.523: Supervision of elderly multigravida Z36.3: Encounter for screening for malformations Z3A.36: Weeks of gestation Procedures 30921: Ultrasound, uterus, real time with image documentation, follow up, transabdominal approach per fetus HISTORY ----- OB History 5. Para 3 T3A1L3 METHOD ----- Transabdominal ultrasound examination ----- Helm . Number of fetuses: 1 DATING ----- GA by prior assessment 36 w + 1 d AMBROCIO by prior assessment: 07/03/2024 Ultrasound examination on: 06/06/2024 GA by U/S based upon: AC, BPD, EFW, Femur, HC GA by U/S 37 w + 3 d AMBROCIO by U/S: 06/24/2024 Method of dating: Restore dating from previous exam Assigned: based on stated AMBROCIO, selected on 02/15/2024 Assigned GA 36 w + 1 d Assigned AMBROCIO: 07/03/2024 BIOMETRY ----- BPD 89.1 mm 36w 0d 57% Hadlock OFD 115.4 mm -/- 92% Arelis HC 326.5 mm 37w 0d 41% Hadlock AC 367.2 mm 40w 5d >99% Hadlock Femur 66.9 mm 34w 3d 10% Hadlock HC / AC 0.89 2% Nicolaides Weight Calculation: EFW 3,474 g 39w 2d 95% Hadlock EFW (lb,oz) 7 lb 11 oz EFW by Hadlock ([id number]-FL) Extremities / Bony Struc Biometry: FL / BPD 0.75 FL / HC 0.20 FL / AC 0.18 GENERAL EVALUATION ----- Cardiac activity present. FHR 149 bpm. movements: present. Presentation: cephalic Placenta: Placental site: posterior Umbilical cord: Cord vessels: 3 vessel cord. Amniotic fluid: Amount of AF: normal amount. MVP 6.9 cm. AMADO 14.6 cm. Q1 6.9 cm, Q2 3.5 cm, Q3 4.2 cm, Q4 0.0 cm ANATOMY ----- The following structures appear normal: Head / Neck Cranium. Midline falx. Cavum septi pellucidi. Heart / Thorax Diaphragm. Abdomen Stomach. Kidneys. Bladder. GROWTH OVERVIEW ----- Exam date GA BPD (mm) HC (mm) AC (mm) FL (mm) HL (mm) EFW (g) 02/15/2024 20w 1d 46.1 41% 169.9 19% 158.0 70% 32.1 37% 32.3 78% 351 59% 04/11/2024 28w 1d 71.1 51% 274.0 74% 262.6 95% 54.8 59% 1,447 90% 05/09/2024 32w 1d 81.8 64% 309.8 78% 315.8 >99% 60.2 17% 2,334 91% 06/06/2024 36w 1d 89.1 57% 326.5 41% 367.2 >99% 66.9 10% 3,474 95% COMMENT ----- Patient's name and date of were verified by the tennis director prior to the exam IMPRESSION ----- IUP at 36w 1d cephalic presentation LGA growth with EFW 3474 g (95%), AC >99% with appropriate interval growth Normal amniotic fluid volume, AMADO 14.6 cm, MVP 6.9 cm Recommendations: - Follow up as clinically indicated Procedure Note Ayla Luther MD - 06/06/2024 STL FOLLOW UP ----- Pat. Name:Naresh BERTRAND Date:06/06/2024 12:51pm Pat. NO: [id number] MD:REMBERTO JOAQUIN MD Site:[facility]:Lexii Alfaro RDMS :1985Age:38 ----- INDICATION ----- Advanced Maternal Age (AMA), Multigravida Asthma Complicating CODING ----- Diagnoses O99.513: Diseases of the respiratory systemcomplicating O09.523: Supervision of elderly multigravida Z36.3: Encounter for screening formalformations Z3A.36: Weeks of gestation Procedures 01777: Ultrasound, uterus, real time withimage documentation, follow up, transabdominal approach per fetus HISTORY ----- OB History 5. Para 3 T3A1L3 METHOD ----- Transabdominal ultrasound examination ----- Helm . Number of fetuses: 1 DATING ----- GA by prior [id number] w + 1 d AMBROCIO by prior assessment:07/03/2024 Ultrasound examination on:06/06/2024 GA by U/S based upon:AC, BPD, EFW, Femur, HC GA by U/S37 w + 3 d AMBROCIO by U/S:06/24/2024 Method of dating:Restore dating from previous exam Assigned:based on stated AMBROCIO, selected on 02/15/2024 Assigned GA36 w + 1 d Assigned AMBROCIO:07/03/2024 BIOMETRY ----- BPD 89.1 mm 36w 0d 57%Hadlock OFD 115.4 mm -/- 92%Arelis HC 326.5 mm 37w 0d 41%Hadlock AC 367.2 mm 40w 5d >99%Hadlock Femur 66.9 mm 34w 3d 10%Hadlock HC / AC 0.89 2%Nicolaides Weight Calculation: EFW 3,474 g 39w 2d95% Hadlock EFW (lb,oz) 7 lb 11 oz EFW by Hadlock (IJQ-CZ-EV-FL) Extremities / Bony Struc Biometry: FL / BPD 0.75 FL / HC 0.20 FL / AC 0.18 GENERAL EVALUATION ----- Cardiac activity present. FHR 149 bpm. movements: present.Presentation: cephalic Placenta: Placental site: posterior Umbilical cord: Cord vessels: 3 vessel cord. Amniotic fluid: Amount of AF: normal amount. MVP 6.9 cm. AMADO 14.6 cm. Q16.9 cm, Q2 3.5 cm, Q3 4.2 cm, Q4 0.0 cm ANATOMY ----- The following structures appear normal: Head / Neck Cranium. Midline falx. Cavum septi pellucidi. Heart / Thorax Diaphragm. Abdomen Stomach. Kidneys. Bladder. GROWTH OVERVIEW ----- Exam date GA BPD (mm) HC (mm) AC (mm)FL (mm) HL (mm) EFW (g) 02/15/2024 20w 1d 46.1 41% 169.9 19% 158.0 70%32.1 37% 32.3 78% 351 59% 04/11/2024 28w 1d 71.1 51% 274.0 74% 262.6 95%54.8 59% 1,447 90% 05/09/2024 32w 1d 81.8 64% 309.8 78% 315.8 >99%60.2 17% 2,334 91% 06/06/2024 36w 1d 89.1 57% 326.5 41% 367.2 >99%66.9 10% 3,474 95% COMMENT ----- Patient's name and date of were verified by the tennis director prior tothe exam IMPRESSION ----- IUP at 36w 1d cephalic presentation LGA growth with EFW 3474 g (95%), AC >99% with appropriate intervalgrowth Normal amniotic fluid volume, AMADO 14.6 cm, MVP 6.9 cm Recommendations: - Follow up as clinically indicated us Zafar Gutiérrez MD US ORDERABLES Final Resu lt * US OB FOLLOW UP + TV (04/11/2024 8:09 AM SILVER STEWARD) Anatomical Region Laterality Modality Pelvis Ultrasound 04/11/2024 7:38 AM SILVER STEWARD Narrative 04/11/2024 8:12 AM SILVER STEWARD STL FOLLOW UP ----- Pat. Name: PATSY BERTRAND Study Date: 04/11/2024 7:38am Pat. NO: [id number] Referring MD: REMBERTO JOAQUIN MD Site: [place] [facility] [employer] Project Manager: Chani Medel RDMS : 1985 Age: 38 ----- INDICATION ----- Advanced Maternal Age (AMA), Multigravida Asthma Complicating CODING ----- Diagnoses Z3A.28: Weeks of gestation O99.513: Diseases of the respiratory system complicating O09.523: Supervision of elderly multigravida Z36.3: Encounter for screening for malformations Procedures 19559: Ultrasound, uterus, real time with image documentation 10155: Ultrasound, uterus, real time with image documentation, follow up, transabdominal approach per fetus HISTORY ----- OB History 5. Para 3 T3A1L3 METHOD ----- Transabdominal and transvaginal ultrasound examination ----- Helm . Number of fetuses: 1 DATING ----- GA by prior assessment 28 w + 1 d AMBROCIO by prior assessment: 07/03/2024 Ultrasound examination on: 04/11/2024 GA by U/S based upon: AC, BPD, EFW, Femur, HC GA by U/S 29 w + 3 d AMBROCIO by U/S: 06/24/2024 Method of dating: Restore dating from previous exam Assigned: based on stated AMBROCIO, selected on 02/15/2024 Assigned GA 28 w + 1 d Assigned AMBROCIO: 07/03/2024 BIOMETRY ----- BPD 71.1 mm 28w 4d 51% Hadlock OFD 98.9 mm 32w 0d >99% Arelis HC 274.0 mm 29w 6d 74% Hadlock AC 262.6 mm 30w 3d 95% Hadlock Femur 54.8 mm 29w 0d 59% Hadlock HC / AC 1.04 18% Nicolaides Weight Calculation: EFW 1,447 g 29w 3d 90% Hadlock EFW (lb,oz) 3 lb 3 oz EFW by Hadlock ([id number]-FL) Head / Face / Neck Biometry: Chilling Hood Operator 4.5 mm Extremities / Bony Struc Biometry: FL / BPD 0.77 FL / HC 0.20 FL / AC 0.21 GENERAL EVALUATION ----- Cardiac activity present. FHR 159 bpm. movements: present. Presentation: transverse hmr Placenta: Placental site: posterior Umbilical cord: Cord vessels: 3 vessel cord. Amniotic fluid: Amount of AF: normal amount. MVP 5.2 cm. AMADO 14.3 cm. Q1 2.0 cm, Q2 3.1 cm, Q3 5.2 cm, Q4 4.0 cm MATERNAL STRUCTURES ----- Cervix Normal Approach - Transvaginal ANATOMY ----- The following structures appear normal: Head / Neck Cranium. Lateral ventricles. Choroid plexus. Midline falx. Cavum septi pellucidi. Cerebellum. Cisterna magna. Heart / Thorax 4-chamber view. RVOT view. LVOT view. Diaphragm. Abdomen Stomach. Kidneys. Bladder. GROWTH OVERVIEW ----- Exam date GA BPD (mm) HC (mm) AC (mm) FL (mm) HL (mm) EFW (g) 02/15/2024 20w 1d 46.1 41% 169.9 19% 158.0 70% 32.1 37% 32.3 78% 351 59% 04/11/2024 28w 1d 71.1 51% 274.0 74% 262.6 95% 54.8 59% 1,447 90% COMMENT ----- Patient's name and date of were verified by the tennis director prior to the exam. Meri FERNANDEZ was present for the transvaginal ultrasound and served as a carpet loom fixer. IMPRESSION ----- Impression: - Helm viable intrauterine at 28w 1d in transverse hmr presentation. - Estimated weight is 1447 g (90%ile) with abdominal circumference at the 95%ile - Amniotic fluid volume is normal (Amniotic fluid index = 14.3 cm, maximum vertical pocket = 5.2 cm) - No major malformations identified within the limitations of ultrasound - Placenta is posterior without previa. Recommendations: - Follow up ultrasound for growth in 4 weeks Thank you for inviting us to participate in your patient's care. Procedure Note Mary Carmen Choudhary MD - 04/11/2024 STL FOLLOW UP ----- Pat. Name:Naresh BERTRAND Date:04/11/2024 7:38am Pat. NO: [id number] MD:REMBERTO JOAQUIN [facility]Chani Medel RDMS :1985Age:38 ----- INDICATION ----- Advanced Maternal Age (AMA), Multigravida Asthma Complicating CODING ----- Diagnoses Z3A.28: Weeks of gestation O99.513: Diseases of the respiratory systemcomplicating O09.523: Supervision of elderly multigravida Z36.3: Encounter for screening formalformations Procedures 29614: Ultrasound, uterus, real time withimage documentation 03429: Ultrasound, uterus, real time withimage documentation, follow up, transabdominal approach per fetus HISTORY ----- OB History 5. Para 3 T3A1L3 METHOD ----- Transabdominal and transvaginal ultrasound examination ----- Helm . Number of fetuses: 1 DATING ----- GA by prior [id number] w + 1 d AMBROCIO by prior assessment:07/03/2024 Ultrasound examination on:04/11/2024 GA by U/S based upon:AC, BPD, EFW, Femur, HC GA by U/S29 w + 3 d AMBROCIO by U/S:06/24/2024 Method of dating:Restore dating from previous exam Assigned:based on stated AMBROCIO, selected on 02/15/2024 Assigned GA28 w + 1 d Assigned AMBROCIO:07/03/2024 BIOMETRY ----- BPD 71.1 mm 28w 4d 51%Hadlock OFD 98.9 mm 32w 0d >99%Arelis HC 274.0 mm 29w 6d 74%Hadlock AC 262.6 mm 30w 3d 95%Hadlock Femur 54.8 mm 29w 0d 59%Hadlock HC / AC 1.04 18%Nicolaides Weight Calculation: EFW 1,447 g 29w 3d90% Hadlock EFW (lb,oz) 3 lb 3 oz EFW by Hadlock ([id number]-FL) Head / Face / Neck Biometry: Chilling Hood Operator 4.5mm Extremities / Bony Struc Biometry: FL / BPD 0.77 FL / HC 0.20 FL / AC 0.21 GENERAL EVALUATION ----- Cardiac activity present. FHR 159 bpm. movements: present.Presentation: transverse hmr Placenta: Placental site: posterior Umbilical cord: Cord vessels: 3 vessel cord. Amniotic fluid: Amount of AF: normal amount. MVP 5.2 cm. AMADO 14.3 cm. Q12.0 cm, Q2 3.1 cm, Q3 5.2 cm, Q4 4.0 cm MATERNAL STRUCTURES ----- Cervix Normal Approach - Transvaginal ANATOMY ----- The following structures appear normal: Head / Neck Cranium. Lateral ventricles. Choroid plexus.Midline falx. Cavum septi pellucidi. Cerebellum. Cisterna magna. Heart / Thorax 4-chamber view. RVOT view. LVOT view. Diaphragm. Abdomen Stomach. Kidneys. Bladder. GROWTH OVERVIEW ----- Exam date GA BPD (mm) HC (mm) AC (mm) FL(mm) HL (mm) EFW (g) 02/15/2024 20w 1d 46.1 41% 169.9 19% 158.0 70%32.1 37% 32.3 78% 351 59% 04/11/2024 28w 1d 71.1 51% 274.0 74% 262.6 95%54.8 59% 1,447 90% COMMENT ----- Patient's name and date of were verified by the tennis director prior tothe exam. Meri FERNANDEZ was present for the transvaginal ultrasound and served as achaperone. IMPRESSION ----- Impression: - Helm viable intrauterine at 28w 1d in transverse hmrpresentation. - Estimated weight is 1447 g (90%ile) with abdominal circumferenceat the 95%ile - Amniotic fluid volume is normal (Amniotic fluid index = 14.3 cm, maximumvertical pocket = 5.2 cm) - No major malformations identified within the limitations of ultrasound - Placenta is posterior without previa. Recommendations: - Follow up ultrasound for growth in 4 weeks Thank you for inviting us to participate in your patient's care. us Chance Palumbo MD ORDERABLES Final Re sult from Last 3 Months Insurance
--- OUTSIDE RECORDS SUMMARY | 2024-06-26 17:36 | XMS_ITS | Clinical Summary ---
Author Organization [facility] Address [address] [place] [address] Care Team Providers Care Editor Sound Name Role Phone Javier Fragoso MD Primary Care Provider [phone] Source Comments [facility],non-owned Affiliates and Associated Physician Practices is amultiple site organization consisting of ambulatory clinics and hospital sitesin [place], [place], [place] and [place]. This disclosure is being madepursuant to the Care Everywhere program and may not contain all information available regarding this patient. Last updated 17.[facility] Allergies Active Allergy Reactions Criticality Noted Date Comments Sulfa Drugs Rash Medium 04/01/2016 Medications * Be aware that medications may not be up to date on this document. Alwaysverify current medications with the patient. MV-Min-Fe Fum-FA-DHA ( 1 PO) Acti ve Iron, Ferrous Gluconate, 256 (28 FE) MG Active Active Problems No known active problems Social History Tobacco Use Types Packs/Day Years Used Date Smoking Tobacco: Never Comments Unknown Sex and Gender Information Value Date Recorded Sex Assigned at Not on file Legal Sex Female 8:09 AM MANAGEMENT PROFESSOR Gender Identity Not on file Sexual Orientation Not on file Last Filed Vital Signs Vital Sign Reading Time Taken Comments Blood Pressure 120/84 05/01/2017 10:47 AM MANAGEMENT PROFESSOR Pulse 121 05/01/2017 10:47 AM MANAGEMENT PROFESSOR Temperature 36.8 C (98.3 F) 05/01/2017 10:47 AM MANAGEMENT PROFESSOR Respiratory Rate 17 04/01/2016 9:07 AM MANAGEMENT PROFESSOR Oxygen Saturation 99% 04/01/2016 9:07 AM MANAGEMENT PROFESSOR Inhaled Oxygen Concentration - - Weight 61.2 kg (135 lb) 05/01/2017 10:47 AM MANAGEMENT PROFESSOR Height 167.6 cm (5' 6 ) 05/01/2017 10:47 AM MANAGEMENT PROFESSOR Body Mass Index 21.79 05/01/2017 10:47 AM MANAGEMENT PROFESSOR Plan of Treatment Health Maintenance Due Date Last Done Comments HIV SCREENING 2000 HEPATITIS C SCREENING 11/08/2003 DTAP/TDAP/TD VACCINES (1 - Tdap) 2004 HEPATITIS B VACCINE (1 of 3 - 19+ 3-dose series) 2004 COVID-19 VACCINE (1 - 2023-2 5 season) 2023 DEPRESSION SCREENING 03/06/2024 INFLUENZA VACCINE (Season Ended) 2024 ZOSTER VACCINE (1 of 2) 11/13/2035 HIB VACCINE Aged Out No longer eligi ble based on patient's age to complete this topic HPV VACCINE Aged Out No longer eligi ble based on patient's age to complete this topic MENINGOCOCCAL (Group B) VACC INE SHARED DECISION-MAKING Aged Out No longer eligibl e based on patient's age to complete this topic MENINGOCOCCAL GROUPS A/C/Y/W VACCINE Aged Out No longer eligible b ased on patient's age to complete this topic PNEUMOCOCCAL VACCINE Aged Out No long er eligible based on patient's age to complete this topic Insurance [facility] [place] [id number] Care Teams Editor Sound Relationship Specialty Start Date End Date Javier Fragoso MD [address] [facility] [address] [place] [address] PCP - General Family Medicine 04/01/16
--- OUTSIDE RECORDS SUMMARY | 2024-06-26 17:36 | XMS_ITS | Clinical Summary ---
Author Organization [facility] Address [address] [place] [address] Phone Care Team Providers Care Steam Meter Reader Name Role Phone Unavailable Unavailable Unavailable Reason for Visit and Chief Complaint RETURN OB EXAM Problems Includes: Problems addressed during this encounter and other active Problems Current Visit Onset Date Resolved Date Provider Humaira hayden Status OTH CURR COND-ANTEPARTUM 06/24/2014 VEDA LOVING MD Active Last Documented On 06/24/2014 4:21PM ; [facility] Note: Unchanged SUPERVIS OTH NORMAL PREG 06/24/2014 VEDA LOVING MD Active Last Documented On 06/24/2014 4:21PM ; [facility] Note: Unchanged Plan of Treatment Pending Tests Order Diagnosis Results Due Ordering P rovider Lab Alkaline Phosphatase 06/24/14 VEDA LOVING MD Last Documented On 5 10:08AM ; [facility] Lab ALT 06/24/14 VEDA LOVING MD Last Documented On 5 10:08AM ; [facility] Lab TCK PIH LABS 06/24/14 VEDA SHAFER MD Last Documented On 5 10:08AM ; [facility] U/S @ [facility] - OB or JV U/S Follow-up or repeat US EXCESS FET GRTH-ANTEPART 06/24/14 VEDA LOVING MD Last Documented On 5 8:28AM ; [facility] In office procedures - *Clia Waived Labs Urine (OB ONLY) SUPERVIS OTH NORMAL PREG 07/08/14 VEDA LOVING MD Last Documented On 5 10:08AM ; [facility] Assessments Includes: Assessments from this encounter No Assessments Recorded Medical Equipment - Implanted Devices Includes: Current Devices No Medical Equipment Recorded Medications Includes: Medications discussed during this encounter and other current Medications Current Medications (continue as prescribed) Plus/Iron 27-1MG Oral Tablet 04/07/2016 Pro vider: VEDA LOVING MD Diagnosis: One tablet daily Last Documented On 04/07/2016 12:26PM By VEDA LOVING MD ; [facility] Medications Administered Includes: Administered Medications from this encounter No Administered Medications Recorded Vital Signs Includes: Vital Signs from this encounter Vital Name 06/24/2014 03:57P Blood Pressure Sitting (mmHg) 104/68 Weight (lb) 165 Last Documented: On 06/24/2014 3:57PM ; [facility] Results Includes: Results discussed during this encounter No Results Recorded For Specified Dates History of Present Illness Includes: History of Present Illness from this encounter No History of Present Illness Recorded Social History No Social History Recorded - Smoking Status Unknown Medical History Includes: Medical History addressed during this encounter No Medical History Recorded Family History Includes: Family History addressed during [...] ctive Last Documented On 5 10:07AM ; [facility] Encounters Encounter Provider Location Date Check-In Time Check- Out Time Diagnosis RETURN OB EXAM VEDA LOVING MD [facility] CCTV TECHNICIAN 5 3:52PM 4:40PM Clinical Notes Includes: Clinical Notes from this encounter No Clinical Notes Recorded
--- OUTSIDE RECORDS SUMMARY | 2024-06-26 17:36 | XMS_ITS | Clinical Summary ---
Author Organization [facility] Address [address] [place] [address] Phone Care Team Providers Care Multiple Needle Stitcher Name Role Phone Unavailable Unavailable Unavailable Reason for Visit and Chief Complaint RETURN OB EXAM Problems Includes: Problems addressed during this encounter and other active Problems All Visits Onset Date Resolved Date Provider Condition S tatus OTH CURR COND-ANTEPARTUM 06/24/2014 VEDA LOVING MD Active Last Documented On 06/24/2014 4:21PM ; [facility] Note: Unchanged SUPERVIS OTH NORMAL PREG 06/24/2014 VEDA LOVING MD Active Last Documented On 06/24/2014 4:21PM ; [facility] Note: Unchanged Alcohol Use 12/18/2013 Unknown VEDA LOVING MD Resolved Last Documented On 07/22/2014 1:30PM ; [facility] Note: was Closed. Exposure To Herpes Simplex 12/18/2013 Unknown VEDA LOVING MD Resolved Last Documented On 07/22/2014 1:30PM ; [facility] Note: was Closed. History of Allergic Rhinitis 12/18/2013 Unknown VEDA LOVING MD Resolved Last Documented On 07/22/2014 1:30PM ; [facility] Note: was Closed. History of Depression 12/18/2013 Unknown VEDA LOVING MD Resolved Last Documented On 07/22/2014 1:30PM ; [facility] Note: was Closed. History of Hematologic Disorders 12/18/2013 Unknown VEDA LOVING MD Resolved Last Documented On 07/22/2014 1:30PM ; [facility] Note: was Closed. History of Thyroid Disorders 12/18/2013 Unknown VEDA LOVING MD Resolved Last Documented On 07/22/2014 1:30PM ; [facility] Note: was Closed. Medical History Infections 12/18/2013 Unknown VEDA LOVING MD Resolved Last Documented On 07/22/2014 1:30PM ; [facility] Note: was Closed. Respiratory Disorders 12/18/2013 Unknown VEDA LOVING MD Resolved Last Documented On 07/22/2014 1:30PM ; [facility] Note: was Closed. Plan of Treatment Pending Tests Order Diagnosis Results Due Ordering P franteto In office procedures - *Clia Waived Labs Urine (OB ONLY) SUPERVIS OTH NORMAL PREG 07/15/14 VEDA LOVING MD Last Documented On 5 10:08AM ; [facility] Assessments Includes: Assessments from this encounter No Assessments Recorded Medical Equipment - Implanted Devices Includes: Current Devices No Medical Equipment Recorded Medications Includes: Medications discussed during this encounter and other current Medications Current Medications (continue as prescribed) Plus/Iron 27-1MG Oral Tablet 04/07/2016 Pro vider: VEDA LOVING MD Diagnosis: One tablet daily Last Documented On 04/07/2016 12:26PM By VEDA LOVING MD ; [facility] Medications Administered Includes: Administered Medications from this encounter No Administered Medications Recorded Vital Signs Includes: Vital Signs from this encounter Vital Name 07/01/2014 03:48P Blood Pressure Sitting (mmHg) 114/78 Weight (lb) 166 Last Documented: On 07/01/2014 3:48PM ; [facility] Results Includes: Results discussed during this encounter [...] ctive Last Documented On 5 10:07AM ; [facility] Encounters Encounter Provider Location Date Check-In Time Check- Out Time Diagnosis RETURN OB EXAM VEDA LOVING MD [facility] [address] [employer] [address] 5 3:42PM 4:30PM Clinical Notes Includes: Clinical Notes from this encounter No Clinical Notes Recorded
--- OUTSIDE RECORDS SUMMARY | 2024-06-26 17:36 | XMS_ITS | Clinical Summary ---
Author Organization [facility] Address [address] [place] [address] Care Team Providers Care Healthcare Project Manager Name Role Phone Dick Koch MD Primary Care Provider [phone] Manjit Luo MD Unavailable [phone] Allergies Active Allergy Reactions Criticality Noted Date Comments Sulfa (Sulfonamide Antibiotics) Medications mv-mn-iron qco-AY-jepmx9,6 ,9#3 (WOMEN'S MULTI) 18-600 mg-mcg capsule 0 0 4 Active PNV with ihqxjdz-itxw-IP ( VITAMIN PLUS LOW IRON) 27 mg iron- 1 mg tablet take 1 tablet by oral route every day 30 6 4 Active Additional Information Patient not taking.Reported on 07/12/2022 Active Problems No known active problems Immunizations Immunization Administration Dates Next Due Tdap 07/09/2012 Medical [...] on file Legal Sex Female 11:50 PM WEB CONTENT COORDINATOR Gender Identity Not on file Sexual Orientation [...] patient's age to complete this topic Insurance [facility] Care Teams Healthcare Project Manager Relationship Specialty Start Date End Date Dick Koch MD [address] [place] [address] PCP - General 04/27/11 Manjit Luo MD [address] [place] [address] Referring Physician Obstetrics and Gynecology 10/15/18
--- OUTSIDE RECORDS SUMMARY | 2024-06-26 17:36 | XMS_ITS | Referral Summary ---
Author Organization [facility] Address [address] [place] [address] Care Team Providers Care Computer Operations Specialist Name Role Phone Dick Koch MD Primary Care Provider [phone] Manjit Luo MD Unavailable [phone] Allergies Active Allergy Reactions Criticality Noted Date Comments Sulfa (Sulfonamide Antibiotics) Medications mv-mn-iron aqd-GL-dzuma4,6 ,9#3 (WOMEN'S MULTI) 18-600 mg-mcg capsule 0 0 4 Active PNV with gqiqjfm-neev-WF ( VITAMIN PLUS LOW IRON) 27 mg iron- 1 mg tablet take 1 tablet by oral route every day 30 6 4 Active Additional Information Patient not taking.Reported on 07/12/2022 Active Problems No known active problems Immunizations Immunization Administration Dates Next Due Tdap 07/09/2012 Social History Tobacco Use Types Packs/Day Years Used Date Smoking Tobacco: Never Assessed Alcohol Use Standard Drinks/Week Comments No 0 (1 standard drink = 0.6 oz pur e alcohol) Comments Unknown Sex and Gender Information Value Date Recorded Sex Assigned at Not on file Legal Sex Female 11:50 PM CASE SPECIALIST Gender Identity Not on file Sexual Orientation [...] Plan of Treatment Not on file Insurance [facility] Care Teams Computer Operations Specialist Relationship Specialty Start Date End Date Dick Koch MD [address] [place] [address] PCP - General 04/27/11 Manjit Luo MD [address] [place] [address] Referring Physician Obstetrics and Gynecology 10/15/18
--- OUTSIDE RECORDS SUMMARY | 2024-06-26 17:37 | XMS_ITS | Clinical Summary ---
Author Organization [facility] Address [address] [place] [address] Phone Care Team Providers Care Forming Machine Tender Name Role Phone Unavailable Unavailable Unavailable Reason for Visit and Chief Complaint REPEAT OB U/S Problems Includes: Problems addressed during this encounter and other active Problems All Visits Onset Date Resolved Date Provider Condition S tatus OTH CURR COND-ANTEPARTUM 06/24/2014 VEDA LOVING MD Active Last Documented On 06/24/2014 4:21PM ; [facility] Note: Unchanged SUPERVIS OT NORMAL PREG 06/24/2014 VEDA LOVING MD Active Last Documented On 06/24/2014 4:21PM ; [facility] Note: Unchanged Plan of Treatment No Plan of Treatment Recorded Assessments Includes: Assessments from this encounter No Assessments Recorded Medical Equipment - Implanted Devices Includes: Current Devices No Medical Equipment Recorded Medications Includes: Medications discussed during this encounter and other current Medications Current Medications (continue as prescribed) Plus/Iron 27-1MG Oral Tablet 04/07/2016 Pro vider: VEDA LOVING MD Diagnosis: One tablet daily Last Documented On 04/07/2016 12:26PM By VEDA LOVING MD ; [facility] Medications Administered Includes: Administered Medications from this encounter No Administered Medications Recorded Results Includes: Results discussed during this encounter [...] Exam Includes: Physical Exam from this encounter No Physical Exam Recorded Allergies Includes: Active Allergies Substance Type Reaction Onset Date Resolved Date Statu s Sulfa Antibiotics Allergy 05/04/2011 A ctive Last Documented On 5 10:07AM ; [facility] Encounters Encounter Provider Location Date Check-In Time Check- Out Time Diagnosis REPEAT OB U/S VEDA LOVING MD [facility] [employer] 5 7:40AM 8:04AM Clinical Notes Includes: Clinical Notes from this encounter No Clinical Notes Recorded
[2024-06-26 17:48] LABS: Syphilis IgG/IgM Antibody Negative (Negative)
[2024-06-27] VITALS (76 sets, daily range): BP systolic 83–130; BP diastolic 48–82; PULSE 69–157; RESP 14–18; TEMP 36.2–37.5; O2SAT 95–100
[2024-06-27] MEDS: LACTATED RINGERS 1,000 ML 125 ML IV CONT ×2 (06:20→14:17)
[2024-06-27] MEDS: OXYTOCIN 30 UNITS/NS 500 ML 30 UNITS/500 ML BAG IV CONT (06:20)
--- NOTE | 2024-06-27 07:51 | WPDOBADMIT ---
Obstetrics - Admit Note Admission Note: record reviewed. No pertinent additions to the history and/or any subsequent changes in the physical findings that are not consistent with the expected course of the were found. Additions to the history and/or subsequent changes in the physical findings follow. Here for MIL. Cervix 1-2/50/-2 posterior, very soft. AROM with meconium fluid. FHTs cat. I.Continue Pitocin.
[2024-06-27] MEDS: valACYclovir HCL 500 MG TABLET PO (12:16)
[2024-06-27] MEDS: ACETAMINOPHEN 325 MG TABLET 650 MG PO (12:41)
[2024-06-27] MEDS: fentaNYL CITRATE INJ (*CRX) 100 MCG/2 ML VIAL 50 MCG IV PUSH (15:29)
[2024-06-27] MEDS: ONDANSETRON INJ 4 MG/2 ML VIAL IV PUSH (16:13)
[2024-06-27] MEDS: LIDOCAINE 1% LOCAL INJ 20 ML VIAL (16:35)
--- NOTE | 2024-06-27 16:44 | PM.OBPRVD ---
OB - Vaginal Delivery Note Procedure Delivery date: 06/27/24 Events: Other (MIL) Induction method: AROM and Per Pitocin Protocol Delivery monitor: External FHT and External Uterine Route of delivery: Episiotomy description: None Laceration Description: Perineal - 2nd Degree Delivery repair: vicryl (3-0) Specimen: Yes (placenta) Quantitative Blood Loss (ml): 350 Anesthesia type: Local Disposition: Floor Complications: No immediate complications Narrative: some atony that responds to massage but recurrent so methergine given [place] Baby Date of : 06/27/24 Gestational Age by Date: 39 Infant gender: Male presentation: vertex position: Right Occiput Anterior Placenta delivery description: Spontaneous Cord Vessel Description: 3 Vessels, Nuchal Cord, Delayed Cord Clamping and Around Extremity (both) score one minute: 8 score five minutes: 9
[2024-06-27] MEDS: METHYLERGONOVINE MALEATE 0.2 MG/ML VIAL (16:45)
--- NOTE | 2024-06-27 16:46 | PM.OBDSVD ---
DS: Admitting Diagnosis Discharge Date 06/28/24 Admitting Diagnosis IUP 39 wks for BARBIE DS: Discharge Diagnosis Discharge Diagnosis (1) (normal spontaneous vaginal delivery): Code(s): O80 - Encounter for full-term uncomplicated delivery Status: Acute OB - DS: Summary OB Procedures : NST and Ultrasound OB Procedures Intrapartum: Spontaneous Vag Delivery OB Procedures: : None Peripartum Data Infant Delivery Method: Natural Vaginal Laceration Description: Perineal - 2nd Degree Episiotomy description: None complications: none Status at Discharge Functional status at discharge: independent ambulation Overall status at discharge: patient is progressing back to baseline Time Spent with Patient Time attestation: Total time spent providing and/or coordinating discharge services: DS: Data Data Completed and Pending Labs on day of discharge: Labs from last 24 hours 06/26/24 16:19 Syphilis IgG/IgM Ab Negative HIV 1&2 Ab/P24 Ag 4thGn Negative Blood Type B Negative Antibody Screen Negative Discharge Plan Discharge Attending physician on discharge: trevon Discharging Clinician: Mariely Baumann Anticipated Discharge Date/Time: 06/29/24 16:47 Patient Disposition: Home Activity: may shower and pelvic rest Diet: regular Patient Instructions: Antibiotic Form Patient Language: Lithuanian Stand Alone Forms: General Discharge Information Follow-up/Referrals: Mariely Baumann MD [Physician] - 6 Weeks Discharge Medications: Continued PNV cmb#95-ferrous fumarate-FA [] 28 mg iron- 800 mcg tablet 1 tablet PO DAILY ferrous sulfate [Feosol] 325 mg (65 mg iron) tablet 325 mg PO DAILY calcium phos,dibas-vitamin D3 77-400 mg-unit tablet 1 tablet PO DAILY valacyclovir 500 mg tablet 500 mg PO DAILY Date of admission: 06/26/24 15:57 Primary Care Provider: Ashley Jesus Admitting Provider: Mariely Baumann Attending physician on admission: Mariely Baumann Condition: Stable
[2024-06-27] MEDS: OXYTOCIN 30 UNITS/NS 500 ML 30 UNITS/500 ML BAG 125 UNITS IV CONT (17:05)
--- NOTE | 2024-06-27 19:00 | OBPPTRN ---
Patient transferred to post room #284 via wheelchair. Support person- (Spouse Basilio ) present. Oriented to unit, room, information board, rooming in, admission packet and security measures. Patient verbalizes understanding.
[2024-06-28 04:30] LABS: Hematocrit 31.7 % (37.0-47.0); Hemoglobin 10.2 g/dL (12.0-15.0)
[2024-06-28 04:37] VITALS: BP 97/64; PULSE 79; RESP 18; TEMP 36.7; O2SAT 98
--- NOTE | 2024-06-28 07:41 | P.PNOB_ITS ---
OB - PN: Subj Subjective Date/time seen: 06/28/24 07:41 Patient comments: no complaints and pain well controlled baby status: doing well OB - PN: Obj Data Labs 06/28/24 04:01 Labs: Laboratory Results - last 24 hr 06/28/24 04:01 Hgb 10.2 L Hct 31.7 L Blood Type B Negative Antibody Screen Negative Screen Negative Baby's Blood Type Ab pos Baby's AMBREEN Negative Doses of RhIg Required 1 OB - PN A/P Plan day: 1 Plan: routine care, discharge home, follow up 6 weeks and other (plans NFP for control) Time Spent With Patient Time: Total time spent is greater than 50% in coordination of care (as documented) at patient's floor/unit and/or counseling patient: Exam 2 Narrative: fundus firm nt at U : Bimanual exam- vagina & uterus: other (Uterus firm, nt @U)
[2024-06-28 08:15] VITALS: BP 113/77; PULSE 71; RESP 16; TEMP 36.9; O2SAT 98
[2024-06-28] MEDS: MULTIVIT/MIN/PREN/FOL AC/IRON TABLET 1 TAB PO (08:30)
[2024-06-28] MEDS: valACYclovir HCL 500 MG TABLET PO (08:30)
[2024-06-28] MEDS: DOCUSATE SODIUM 100 MG CAPSULE PO (08:30)
--- NOTE | 2024-06-28 09:45 | PC.NURSE ---
Mother verbalizes she is able to independently latch with appropriate positioning and alignment. She denies any nipple discomfort and is responsively . We reviewed the ways to get a deep latch with a such as tummy to tummy and nipple to nose. Mom was shown the latch 1-2-3 handout as a visual aid. Infant is currently meeting outcomes for weight, output, jaundice, blood sugar and feeding frequencies of 8-12 times in 24 hours. Mother declines any additional assistance or education at this time. Mother is encouraged to call for assistance if her infant doesn?t latch, pain with latching, questions or concerns. Mother voiced understanding of information shared along with the mom/baby guide for an additional resource. Reported to the Primary RN.
[2024-06-28] MEDS: IBUPROFEN 600 MG TABLET PO (12:18)
[2024-06-28] MEDS: RHO(D) IMMUNE GLOBULIN 300 MCG/2 ML SYRINGE IM (13:41)
[2024-06-28 16:20] VITALS: BP 100/67; PULSE 68; RESP 16; TEMP 36.6; O2SAT 98
[2024-06-29 14:45] VITALS: BP 100/67; PULSE 92; RESP 18; TEMP 36.7; O2SAT 100
== END 2024-06-28 17:55 | disposition home or self-care (01) | DRG 807 ==
LOC: ANHLDR 06-27 17:36 → ANHOB2 06-27 20:03
PROVIDERS: Admitting Provider Obstetrics & Gynecology Gynecology; PCP Nurse Practitioner Adult Health; Visit Provider Obstetrics & Gynecology Gynecology
DX: O77.0 Labor and delivery complicated by meconium in amniotic fluid (principal); Z37.0 Single live birth; Z3A.39 39 weeks gestation of pregnancy; O70.1 Second degree perineal laceration during delivery; O69.81X0 Labor and delivery complicated by cord around neck, without compression, not applicable or unspecified
CPT/HCPCS: 36415; 85014; 85018; 85025; 85055; 85461; 86593; 86703; 86850; 86900; 86901; 88307; 90384; A9270; G0432; J2003; J2210; J2405; J2590; J2790; J3010; J7120

== ENCOUNTER 2024-07-01 11:19 | Observation (INO) | payer BC, SELFPAY ==
--- NOTE | 2024-07-01 11:19 | OBADM ---
This patient, Patsy Bertrand, admitted to the OB room OB Post 117 for observation. Patient/family oriented to hospital policies and general routines including ID bracelet, bed and alarms, visiting hours, pain management, procedures, bathroom and other care routines, personal items, smoking policy, room service/diet, and visiting hours. Patient/Family are encouraged to report perceived risks to care and to ask questions if they do not understand what they are told or what they should do.
--- NOTE | 2024-07-01 11:40 | PC.NURSE ---
Patient presents to labor with c/o of feeling like she has a clot just sitting at the os of her vagina, patient is 4 days PP. Visual inspection done, small marble size clot noted. A gentle bimanual exam was done and no additional clots felt. Dr Baumann was notified and will be over to exam patient.
[2024-07-01 11:54] VITALS: BP 109/76; PULSE 74
--- NOTE | 2024-07-01 11:58 | PC.NURSE ---
Dr Baumann at bedside, sterile spec exam performed and a few small clots removed. Bleeding minimal, fundus remains firm. Reassurance given. OK to dc home.
--- NOTE | 2024-07-01 11:59 | PM.OBTRLD ---
OB - Triage/Final Diagnosis Visit Information Reason for evaluation: other (vaginal bleeding) Comments/Additional reasons for admission: I have assessed the risk for this patient, Patsy Bertrand, and determined that she would benefit from observation care. Evaluation Vital signs: Vital Signs - 24 hr 07/01/24 11:54 Pulse Rate 74 Blood Pressure 109/76 Comments: Patient called complaining of a blood clot sitting in vagina and she can't get it out. On exam, no active bleeding on perineum. Speculum placed and small clots removed with ring forcep. Sponge stick used and minimal blood. Patient vss and she is reassured. DC home.
--- OUTSIDE RECORDS SUMMARY | 2024-07-01 13:26 | XMS_ITS | Clinical Summary ---
Author Organization [facility] Address [address] [place] [address] Phone Care Team Providers Care Consumer Advocate Name Role Phone Unavailable Unavailable Unavailable Reason for Visit and Chief Complaint gynecologic annual exam - The Chief Complaint is: annual Problems Includes: Problems addressed during this encounter and other active Problems Current Visit Onset Date Resolved Date Provider Humaira hayden Status Alcohol Use 12/18/2013 Unknown VEDA LOVING MD Resolved Last Documented On 07/22/2014 1:30PM ; [facility] Note: was Closed. History of Allergic Rhinitis 12/18/2013 Unknown VEDA LOVING MD Resolved Last Documented On 07/22/2014 1:30PM ; [facility] Note: was Closed. History of Depression 12/18/2013 Unknown VEDA LOVING MD Resolved Last Documented On 07/22/2014 1:30PM ; [facility] Note: was Closed. History of Hematologic Disorders 12/18/2013 Unknown VEDA LOVING MD Resolved Last Documented On 07/22/2014 1:30PM ; [facility] Note: was Closed. Past Visits Onset Date Resolved Date Provider Condition Status OTVidal CURR COND-ANTEPARTUM 06/24/2014 VEDA LOVING MD Active Last Documented On 06/24/2014 4:21PM ; [facility] Note: Unchanged SUPERVIS OT NORMAL PREG 06/24/2014 VEDA LOVING MD Active Last Documented On 06/24/2014 4:21PM ; [facility] Note: Unchanged Plan of Treatment Return to the office in 1 year for follow up. Patient to call the office in the meantime if she has other problems or questions. - Last Documented On 01/15/2015 4:42PM ; [facility] Instructions to patient Instructions for patient : B reast Self Exam discussed and technique reviewed Last Documented On 5 4:32PM ; [facility] Assessments Includes: Assessments from this encounter Findings - Fibrocystic disease of breast - Last Documented On 01/15/2015 4:42PM ; [facility] - NORMAL FEMALE EXAM - Last Documented On 01/15/2015 4:42PM ; [facility] Instructions Includes: Instructions from this encounter Instructions to patient Instructions for patient : B reast Self Exam discussed and technique reviewed Last Documented On 5 4:32PM ; [facility] Medical Equipment - Implanted Devices Includes: Current Devices No Medical Equipment Recorded Medications Includes: Medications discussed during this encounter and other current Medications Current Medications (continue as prescribed) Plus/Iron 27-1MG Oral Tablet 04/07/2016 Pro vider: VEDA LOVING MD Diagnosis: One tablet daily Last Documented On 04/07/2016 12:26PM By VEDA LOVING MD ; [facility] Past Medications on file ValACYclovir HCl 1 GM Tablet 05/20/2014 - 12/16/2014 P rovider: VEDA LOVING MD Diagnosis: One tablet daily Last Documented On 05/20/2014 11:49AM By VEDA LOVING MD ; [facility] Medications Administered Includes: Administered Medications from this encounter No Administered Medications Recorded Vital Signs Includes: Vital Signs from this encounter Vital Name 01/15/2015 04:16P Blood Pressure Sitting (mmHg) 110/72 Height (in) 66 Weight (lb) 144 Body Mass Index (kg/m2) 23.2 Body Surface Area (m2) 1.7 Last Documented: On 01/15/2015 4:16PM ; [facility] Results Includes: Results discussed during this encounter [...] 01/15/2015 Last Documented On 5 4:42PM ; [facility] Smoking status : Never smoker 01/15/2015 Last Documented On 5 4:42PM ; [facility] Alcohol use 12/18/2013 Last Documented On 5 4:12PM ; [facility] Alcohol use: 2 drinks or less per day oc c alcohol consumption 10/07/2013 Last Documented On 5 4:12PM ; [facility] Daily tea consumption 2 cups 10/07/2013 Last Documented On 5 4:12PM ; [facility] In monogamous relationship 10/07/2013 Last Documented On 5 4:12PM ; [facility] Sexually active with partners in the las t year 10/07/2013 Last Documented On 5 4:12PM ; [facility] Pt prefers to be called: Annita 4 Last Documented On 5 4:12PM ; [facility] Sexually active doing natural family ioana nning per pt 08/17/2012 Last Documented On 5 4:12PM ; [facility] Daily cola consumption was one cans per day WILL HAVE 1 TEA OR SODA A DAY 08/17/2012 Last Documented On 5 4:12PM ; [facility] Age of 1st intercourse was was 22 2011 Last Documented On 5 4:12PM ; [facility] Procedures and Surgical History Includes: Procedures from this encounter Procedures Code Diagnosis Performing Provider Service L ocation Service Date Clinical summary provided to patient Last Documented On 5 4:32PM ; [facility] cervical Pap smear 22690 Last Documented On 5 4:32PM ; [facility] Surgical History Last Updated History of surgery summer. tympanoplasty 12/18/2013 Last Documented On 5 4:12PM ; [facility] Surgical / procedural history TUBES IN E ARS at age 2-3; 2-3 surgeries 08/17/2012 Last Documented On 5 4:12PM ; [facility] Medical History Includes: Medical History addressed during this encounter Description Last Updated 1 P 1 01/15/2015 Last Documented On 5 4:42PM ; [facility] No recent change in medical history 01/04 Last Documented On 5 4:42PM ; [facility] Contraception: natural family planning 1 03/17/2014 Last Documented On 5 4:42PM ; [facility] Sexually active 01/15/2015 Last Documented On 5 4:42PM ; [facility] Baby thriving female vonda 8lbs 4 oz 07/04/2014 at 38 6/7 wks; STA/TK 08/15/2014 Last Documented On 5 4:12PM ; [facility] Fertility awareness method (FEM) 015 Last Documented On 5 4:12PM ; [facility] Infant is breast-feeding 08/15/2014 Last Documented On 5 4:12PM ; [facility] Last pap smear date 10/07/2013 08/15/2014 Last Documented On 5 4:12PM ; [facility] History of allergic rhinitis mob and fob seasonal 12/18/2013 Last Documented On 5 4:12PM ; [facility] History of depression mobs family 2013 Last Documented On 5 4:12PM ; [facility] History of hematologic disorder 12/19/19 14 Last Documented On 5 4:12PM ; [facility] LMP: 10/05/2013 10/07/2013 Last Documented On 5 4:12PM ; [facility] Result: normal 10/07/2013 Last Documented On 5 4:12PM ; [facility] PRIMARY CARE PROVIDER : DANELLE NANCE 08/04 Last Documented On 5 4:12PM ; [facility] Family History Includes: Family History addressed during this encounter Description Last Updated Family history unchanged THY ROID PROBLEMS in her mom and maternal aunts-- underactive, not cancer 08/17/2012 Last Documented On 5 4:12PM ; [facility] Spouse name: JAIMIE 05/04/2011 Last Documented On 5 4:12PM ; [facility] Review of Systems Includes: Review of Systems [...] ctive Last Documented On 5 10:07AM ; [facility] Encounters Encounter Provider Location Date Check-In Time Check-Out Time Diagnosis IT SUPPORT SPECIALIST EXAM VEDA LOVING MD [facility] 01/16/20 15 3:42PM 5:03PM Normal Female Exam,Breast Fibrocystic Disease Clinical Notes Includes: Clinical Notes from this encounter No Clinical Notes Recorded
--- OUTSIDE RECORDS SUMMARY | 2024-07-01 13:26 | XMS_ITS | Data Portability ---
Author Organization [facility] Address [address] [place] [address] Assessment No assessment recorded. Plan of Treatment [...] and labor atory findi ngs. See https ://Verold/s ites/ defau lt/fi les/2 018-0 3AW- 00215 _002_ 01.pd f for [facility] lucia infor matdacia n. Test perfo rmed by [facility], d/b/a PathGuillermo roucarlos, [address], [facility] [place] [address] , Harriet Barrientos ra, DO, Labor atory [facility]. HPV High Risk *HPV NOT DETEC ADRIANA [...] and labor atory findi ngs. See https ://Verold/s ites/ defau lt/fi les/2 018-0 3AW- 49686 _002_ 01.pd f for [facility] er infor matio n. Test perfo rmed by [facility], d/b/a [facility], [address], [place] [address] , Harriet Barrientos ra, DO, [facility]. End of Repor t Techn ical servi mary beth provi ded by [facility] iated Patho logis [facility], [employer], d/b/a [facility], [address] [place] [address] Jim Montano MD, [facility]. Case revie wed and diagn osis rende red at [facility] iatPocket [facility]cierge Patho logis [facility], [employer], d/b/a [facility], [address] [place] [address] Jim Montano MD, [facility]. CONFI DENTI AL Not Available [facility] ([facility] [employer]) [address] [facility] [address], [place], [address], 09/22/2019 11:15:08 09/17/19 20 09/22/2019 HPV DNA, high- risk HPV high risk NOT DETECT ED normal Not Available [facility] ([facility] [employer]) [address] [place] [address], [place], [address], 09/22/2019 11:15:08 Result Notes None recorded. Problems Name Problem SNOMED Code Status Onset Date Resolution Date Notes Provider Name and Address Organization Details Recorded Time Normal in multigrav dania [id number] 4106 Active 2018 Encounter for suprvsn of normal , third trimester ;Practice ID: 0001 Not Available [facility] 0 15:02:52 Term delivered 81016049 Active 2019 Encounter for full-term uncomplic ated delivery; Practice ID: 0001 Not Available [facility] 0 15:02:52 Single live from woo 445649533 Active 2019 Single live ;Pra ctice ID: 0001 Not Available [facility] 0 15:02:52 Gestation period, 40 weeks 53221913 Active 2019 40 weeks gestation of ;Practice ID: 0001 Not Available [facility] 0 15:02:52 Lochia finding Active 2019 Encounter for routine postpartu m follow-up ;Practice ID: 0001 Not Available [facility] 0 15:02:52 Rubella screening status 143920884 Active 2018 Encounter for screening , unspecifi ed;Record ed Elsewhere : No Locati on: [facility] So urce: EHR Chron ic: N Practic e ID: 0001 Bill able Time: 04:00:00 PM Not Available [facility] 0 15:02:52 Problem Notes None recorded. Procedures Surgical History Date Name Laterality Status Provider Name and Address Organization Details Recorded Time 09/17/19 20 Date of Last Pap Smear completed Sheila Mcneill [facility] 10/08/2020 13:13:27 06/05/19 17 Dilation and Curettage completed [facility] 09/16/2019 14:21:39 02/04/20 16 Dilation and Curettage completed [facility] 09/16/2019 14:21:29 tympanoplasty with mastoidectomy, with ossicular chain reconstruction completed [facility] 09/16/2019 14:23:00 Imaging Results None [...] Not available Not available Not available 09/16/2019 [id number] SNOMED [facility] 0 14:23:20 Medications Name Sig Start Date Stop Date Status Note LastModified by Organization Details LastModified Time Zyrtec 10 mg tablet take 1 tablet by oral route every day active Prescribed Elsewhere: Yes Locatio n: [facility] Jimmy fy By: En counter DateTime: 01/03/2019 [...] tablet active Prescribed Elsewhere: Yes Locatio n: [facility] Jimmy fy By: [email or web address] En counter DateTime: 01/03/2019 04:00:00 PM Not [...] Updated DateTime 10/08/2020 165.1 cm 25.3 kg/m2 04951.04 g 119 mm[Hg] 78 mm[Hg] Tori Andrews, [facility] [address], [place], [address], [facility] 1 13:42:34 Date Recorded Body height Body mass index (BMI) Body weight Body temperature Systolic blood pressure Diastolic blood pressure Provider Name and Address Organization Details Last Updated DateTime 0 169.55 cm 23.7 kg/m2 93680.8 6 g 98.7 [degF] 102 mm[Hg] 82 mm[Hg] Jacinta Monreal [facility] 0 11:28:12 Social History Question Answer Notes LastModified by Organizat ion Details LastModified Time Tobacco Smoking Status Never Smoker Not Available [facility] 01/07/2020 03:28:11 What Is Your Level Of Alcohol Consumption? Occasional [id number] Information not available 01/07/2020 Sex: Unknown Functional Status Question Answer Note LastModified by Organizat ion Details LastModified Time What is your exercise level? Occasional [id number] Information not available 01/07/2020 Mental Status None recorded. Family History Relationship Description Onset Age of this Age Resolved Age Notes LastModified by Organization Details LastModified Time Mother Depressive disorder [email or web address] Not available 2019 14:19:26 Mother Anxiety disorder jgumber Not available 2019 14:19:41 Mother Migraine [email or web address] Not availab le 10/08/2020 12:28:39 Maternal Aunt Depressive disorder jgumber Not available 2019 14:19:26 Maternal Aunt Anxiety disorder jgumber Not available 2019 14:19:41 Brother Migraine [email or web address] Not availa ble 10/08/2020 12:28:39 Maternal Grandmother Malignant neoplasm of lung jgumber Not available 2019 14:20:17 Paternal Grandmother Malignant neoplasm of lung jgumber Not available 2019 14:20:17 Maternal Grandfather Chronic obstructive pulmonary disease [email or web address] Not available 10/08 12:28:39 Medical History Condition [...] SNOMED-CT Code Diagnosis ICD10 Code Diagnosis Note [id number] Autumn Cain [address] [address] 09/17/2019 11:11:39 09/24/2019 10:22:12 Gynecologic examination [id number] Z01.419 Take Calcium with Vitamin D 1200mg [...] paper copy of today's plan if desired. [id number] Tori Andrews , [facility] [address] [address] 10/08/2020 12:28:24 10/08/2020 13:57:42 Gynecologic examination 33121101 Z01.419 Take Calcium with Vitamin D 1200mg [...] ID Guarantor Name 09/17/2019 1 [place] [id number] Patsy Bertrand [id number] Patsy Bertrand 10/08/2020 1 [place] [id number] Patsy Bertrand [id number] Patsy Bertrand Notes Date Note Type Note Provider Name [...] depression; No anxiety; No PMDD Autumn bonilla [facility] 09/17/2019 11:45:17 10/08/2020 text/html Annual GYNReport [...] smear and high risk HPV typing Tori Andrews, [facility] [address], [place], [address], [facility] 10/08/2020 13:45:04 OBGyn Episode Ob Episode Information Episode Created Date Number of Fetuses Patient Bloodtype Patient rh Status Prepregnancy Weight lbs Domestic Partner Domestic Partner Phone Father Name Reliability Technician Status 09/17/19 20 1 CLOSED Fetus Data [...] Domestic Partner Domestic Partner Phone Father Name Reliability Technician Status 09/17/19 20 1 CLOSED Fetus Data [...] Domestic Partner Domestic Partner Phone Father Name Reliability Technician Status 09/17/19 20 1 CLOSED Fetus Data [...] Domestic Partner Domestic Partner Phone Father Name Reliability Technician Status 09/17/19 20 1 DELETED Rosalio Calculation [...] Domestic Partner Domestic Partner Phone Father Name Reliability Technician Status 09/17/19 20 1 CLOSED Fetus Data [...]
--- OUTSIDE RECORDS SUMMARY | 2024-07-01 13:26 | XMS_ITS | Clinical Summary ---
Author Organization [facility] Address [address] [place] [address] Phone Care Team Providers Care Radiology Specialist Name Role Phone Unavailable Unavailable Unavailable Reason for Visit and Chief Complaint RETURN OB EXAM Problems Includes: Problems addressed during this encounter and other active Problems Current Visit Onset Date Resolved Date Provider Humaira hayden Status OTH CURR COND-ANTEPARTUM 06/24/2014 VEDA LOVING MD Active Last Documented On 06/24/2014 4:21PM ; [facility] Note: Unchanged SUPERVIS OTH NORMAL PREG 06/24/2014 VEDA LOVING MD Active Last Documented On 06/24/2014 4:21PM ; [facility] Note: Unchanged Plan of Treatment Pending Tests Order Diagnosis Results Due Ordering P rovider Lab Alkaline Phosphatase 06/24/14 VEDA LOVING MD Last Documented On 5 10:08AM ; [facility] Lab ALT 06/24/14 VEDA LOVING MD Last Documented On 5 10:08AM ; [facility] Lab TCK PIH LABS 06/24/14 VEDA SHAFER MD Last Documented On 5 10:08AM ; [facility] U/S @ [facility] - OB or JV U/S Follow-up or repeat US EXCESS FET GRTH-ANTEPART 06/24/14 VEDA LOVING MD Last Documented On 5 8:28AM ; [facility] In office procedures - *Clia Waived Labs Urine (OB ONLY) SUPERVIS OTH NORMAL PREG 07/08/14 VEDA LOVING MD Last Documented On 5 10:08AM ; [facility] Assessments Includes: Assessments from this encounter No Assessments Recorded Medical Equipment - Implanted Devices Includes: Current Devices No Medical Equipment Recorded Medications Includes: Medications discussed during this encounter and other current Medications Current Medications (continue as prescribed) Plus/Iron 27-1MG Oral Tablet 04/07/2016 Pro vider: VEDA LOVING MD Diagnosis: One tablet daily Last Documented On 04/07/2016 12:26PM By VEDA LOVING MD ; [facility] Medications Administered Includes: Administered Medications from this encounter No Administered Medications Recorded Vital Signs Includes: Vital Signs from this encounter Vital Name 06/24/2014 03:57P Blood Pressure Sitting (mmHg) 104/68 Weight (lb) 165 Last Documented: On 06/24/2014 3:57PM ; [facility] Results Includes: Results discussed during [...] ctive Last Documented On 5 10:07AM ; [facility] Encounters Encounter Provider Location Date Check-In Time Check- Out Time Diagnosis RETURN OB EXAM VEDA LOVING MD [facility] RETURN TO SERVICE INSPECTOR 5 3:52PM 4:40PM Clinical Notes Includes: Clinical Notes from this encounter No Clinical Notes Recorded
--- OUTSIDE RECORDS SUMMARY | 2024-07-01 13:26 | XMS_ITS ---
Care Plan - [facility] Created on: July 01, 2024 LENA VALIENTE : 1985 Sex: Female Author Organization [facility] Address [address] [place] [address] Phone Care Team Providers Care Web Site Manager Name Role Phone Unavailable Unavailable Unavailable
--- OUTSIDE RECORDS SUMMARY | 2024-07-01 13:26 | XMS_ITS | Clinical Summary ---
Author Organization [facility] Address [address] [place] [address] Phone Care Team Providers Care General Education Professor Name Role Phone Unavailable Unavailable Unavailable Reason for Visit and Chief Complaint RETURN OB EXAM Problems Includes: Problems addressed during this encounter and other active Problems All Visits Onset Date Resolved Date Provider Condition S tatus OTH CURR COND-ANTEPARTUM 06/24/2014 VEDA LOVING MD Active Last Documented On 06/24/2014 4:21PM ; [facility] Note: Unchanged SUPERVIS OTH NORMAL PREG 06/24/2014 VEDA LOVING MD Active Last Documented On 06/24/2014 4:21PM ; [facility] Note: Unchanged Alcohol Use 12/18/2013 Unknown VEDA LOVING MD Resolved Last Documented On 07/22/2014 1:30PM ; [facility] Note: was Closed. Exposure To Herpes Simplex 12/18/2013 Unknown VEDA LOVING MD Resolved Last Documented On 07/22/2014 1:30PM ; [facility] Note: was Closed. History of Allergic Rhinitis 12/18/2013 Unknown VEDA LOVING MD Resolved Last Documented On 07/22/2014 1:30PM ; [facility] Note: was Closed. History of Depression 12/18/2013 Unknown VEDA LOVING MD Resolved Last Documented On 07/22/2014 1:30PM ; [facility] Note: was Closed. History of Hematologic Disorders 12/18/2013 Unknown VEDA LOVING MD Resolved Last Documented On 07/22/2014 1:30PM ; [facility] Note: was Closed. History of Thyroid Disorders 12/18/2013 Unknown VEDA LOVING MD Resolved Last Documented On 07/22/2014 1:30PM ; [facility] Note: was Closed. Medical History Infections 12/18/2013 Unknown VEDA LOVING MD Resolved Last Documented On 07/22/2014 1:30PM ; [facility] Note: was Closed. Respiratory Disorders 12/18/2013 Unknown VEDA LOVING MD Resolved Last Documented On 07/22/2014 1:30PM ; [facility] Note: was Closed. Plan of Treatment Pending Tests Order Diagnosis Results Due Ordering P franteto In office procedures - *Clia Waived Labs Urine (OB ONLY) SUPERVIS OTH NORMAL PREG 07/15/14 VEDA LOVING MD Last Documented On 5 10:08AM ; [facility] Assessments Includes: Assessments from this encounter No Assessments Recorded Medical Equipment - Implanted Devices Includes: Current Devices No Medical Equipment Recorded Medications Includes: Medications discussed during this encounter and other current Medications Current Medications (continue as prescribed) Plus/Iron 27-1MG Oral Tablet 04/07/2016 Pro vider: VEDA LOVING MD Diagnosis: One tablet daily Last Documented On 04/07/2016 12:26PM By EVDA LOVING MD ; [facility] Medications Administered Includes: Administered Medications from this encounter No Administered Medications Recorded Vital Signs Includes: Vital Signs from this encounter Vital Name 07/01/2014 03:48P Blood Pressure Sitting (mmHg) 114/78 Weight (lb) 166 Last Documented: On 07/01/2014 3:48PM ; [facility] Results Includes: Results discussed during this encounter [...] ctive Last Documented On 5 10:07AM ; [facility] Encounters Encounter Provider Location Date Check-In Time Check- Out Time Diagnosis RETURN OB EXAM VEDA LOVING MD [facility] BENDING MACHINE OPERATOR 5 3:42PM 4:30PM Clinical Notes Includes: Clinical Notes from this encounter No Clinical Notes Recorded
--- OUTSIDE RECORDS SUMMARY | 2024-07-01 13:27 | XMS_ITS | Clinical Summary ---
Author Organization [facility] Address [address] [place] [address] Phone Care Team Providers Care Cementer Helper Name Role Phone Unavailable Unavailable Unavailable Reason for Visit and Chief Complaint REPEAT OB U/S Problems Includes: Problems addressed during this encounter and other active Problems All Visits Onset Date Resolved Date Provider Condition S tatus OTH CURR COND-ANTEPARTUM 06/24/2014 VEDA LOVING MD Active Last Documented On 06/24/2014 4:21PM ; [facility] Note: Unchanged SUPERVIS OT NORMAL PREG 06/24/2014 VEDA LOVING MD Active Last Documented On 06/24/2014 4:21PM ; [facility] Note: Unchanged Plan of Treatment [...] 04/07/2016 12:26PM By VEDA LOVING MD ; [facility] Medications Administered Includes: Administered Medications [...] ctive Last Documented On 5 10:07AM ; [facility] Encounters Encounter Provider Location Date Check-In Time Check- Out Time Diagnosis REPEAT OB U/S VEDA LOVING MD [facility] CHIEF SAFETY OFFICER 5 7:40AM 8:04AM Clinical Notes Includes: Clinical Notes from this encounter No Clinical Notes Recorded
--- OUTSIDE RECORDS SUMMARY | 2024-07-01 13:27 | XMS_ITS | Clinical Summary ---
Author Organization [facility] Address [address] [place] [address] Phone Care Team Providers Care Upper Cutter Out Name Role Phone Unavailable Unavailable Unavailable Reason for Visit and Chief Complaint The Chief Complaint is: 6 week ppv 07/04/14. pt states no problems Problems Includes: Problems addressed during this encounter and other active Problems All Visits Onset Date Resolved Date Provider Condition S tatus OTH CURR COND-ANTEPARTUM 06/24/2014 VEDA LOVING MD Active Last Documented On 06/24/2014 4:21PM ; [facility] Note: Unchanged SUPERVIS OT NORMAL PREG 06/24/2014 VEDA LOVING MD Active Last Documented On 06/24/2014 4:21PM ; [facility] Note: Unchanged Plan of Treatment No Plan of Treatment Recorded Assessments Includes: Assessments from this encounter Findings - Normal routine history and physical - - Last Documented On 08/15/2014 10:31AM ; [facility] Medical Equipment - Implanted Devices Includes: Current Devices No Medical Equipment Recorded Medications Includes: Medications discussed during this encounter and other current Medications Current Medications (continue as prescribed) Plus/Iron 27-1MG Oral Tablet 04/07/2016 Pro vider: VEDA LOVING MD Diagnosis: One tablet daily Last Documented On 04/07/2016 12:26PM By VEDA LOVING MD ; [facility] Medications Administered Includes: Administered Medications from this encounter No Administered Medications Recorded Vital Signs Includes: Vital Signs from this encounter Vital Name 08/15/2014 10:04A Blood Pressure Sitting L 100/82 BP Cuff Size Large Height (in) 66 Weight (lb) 149 Body Mass Index (kg/m2) 24.0 Body Surface Area (m2) 1.8 Last Documented: On 08/15/2014 10:06A M ; [facility] Results Includes: Results discussed during [...] patient Last Documented On 5 10:23AM ; [facility] [place] depression scale =3 Last Documented On 5 10:21AM ; [facility] Medical History Includes: Medical History addressed during this encounter Description Last Updated Baby thriving female vonda 8lbs 4 oz 07/04/2014 at 38 6/7 wks; STA/TK 08/15/2014 Last Documented On 5 10:31AM ; [facility] Contraception: 08/15/2014 Last Documented On 5 10:31AM ; [facility] Fertility awareness method (FEM) 015 Last Documented On 5 10:31AM ; [facility] Infant is breast-feeding 08/15/2014 Last Documented On 5 10:31AM ; [facility] is not bottle-feeding 08/15/2014 Last Documented On 5 10:31AM ; [facility] Last pap smear date 10/07/2013 08/15/2014 Last Documented On 5 10:31AM ; [facility] Family History Includes: Family History addressed during [...] ctive Last Documented On 5 10:07AM ; [facility] Encounters Encounter Provider Location Date Check-In Time Check-Out Time Diagnosis POST VISIT VEDA LOVING MD [facility] IRRIGATION MANAGER 08/16/19 15 9:49AM 10:35AM Routine History and Physical Clinical Notes Includes: Clinical Notes from this encounter No Clinical Notes Recorded
--- OUTSIDE RECORDS SUMMARY | 2024-07-01 13:27 | XMS_ITS ---
Author Organization [facility] Address [address] [place] [address] Phone Care Team Providers Care [place] Boatman Name Role Phone Unavailable Unavailable Unavailable Problems Includes: Active, inactive, and resolved Problems All Visits Onset Date Resolved Date Provider Condition S tatus OTH CURR COND-ANTEPARTUM 06/24/2014 VEDA LOVING MD Active Last Documented On 06/24/2014 4:21PM ; [facility] Note: Unchanged SUPERVIS OTH NORMAL PREG 06/24/2014 VEDA LOVING MD Active Last Documented On 06/24/2014 4:21PM ; [facility] Note: Unchanged Alcohol Use 12/18/2013 Unknown VEDA LOVING MD Resolved Last Documented On 07/22/2014 1:30PM ; [facility] Note: was Closed. Exposure To Herpes Simplex 12/18/2013 Unknown VEDA LOVING MD Resolved Last Documented On 07/22/2014 1:30PM ; [facility] Note: was Closed. History of Allergic Rhinitis 12/18/2013 Unknown VEDA LOVING MD Resolved Last Documented On 07/22/2014 1:30PM ; [facility] Note: was Closed. History of Depression 12/18/2013 Unknown VEDA LOVING MD Resolved Last Documented On 07/22/2014 1:30PM ; [facility] Note: was Closed. History of Hematologic Disorders 12/18/2013 Unknown VEDA LOVING MD Resolved Last Documented On 07/22/2014 1:30PM ; [facility] Note: was Closed. History of Thyroid Disorders 12/18/2013 Unknown VEDA LOVING MD Resolved Last Documented On 07/22/2014 1:30PM ; [facility] Note: was Closed. Medical History Infections 12/18/2013 Unknown VEDA LOVING MD Resolved Last Documented On 07/22/2014 1:30PM ; [facility] Note: was Closed. Respiratory Disorders 12/18/2013 Unknown VEDA LOVING MD Resolved Last Documented On 07/22/2014 1:30PM ; [facility] Note: was Closed. Plan of Treatment Instructions to patient Instructions for patient : B reast Self Exam discussed and technique reviewed Last Documented On 5 4:32PM ; [facility] Instructions for patient : B reast Self Exam discussed and technique reviewed Last Documented On 4 1:38PM ; [facility] Instructions for patient : B reast Self Exam discussed and technique reviewed Last Documented On 3 3:33PM ; [facility] Discussed Gardasil vaccinati on and recommend vaccination for HPV prevention. Handout given. Patient understands sexual transmission of high-risk HPV and the association with abnormal pap smear and cervical cancer. Recommend to decrease high risk behaviors such as: number or sexual partners and smoking; and to use barrier contracepties Last Documented On 3 3:33PM ; [facility] Instructions for patient : B reast Self Exam discussed and technique reviewed Last Documented On 2 4:37PM ; [facility] Recommend diet and exercise at least 30 min three times per week Last Documented On 2 4:37PM ; [facility] Recommend CBC, TSH, fasting glucose, fasting lipid panel if patient aged 25 or older Last Documented On 2 4:37PM ; [facility] Recommend preventative vacci nation including but not limited to influenza/flu vaccine, DTP, Rubella, Hepatitis B vaccination series Last Documented On 2 4:37PM ; [facility] Assessments Includes: Assessments for all patient encounters Findings Encounter Date Fibrocystic disease of breast SHELL CORE AND MOLDING SUPERVISOR EXAM with VEDA LOVING MD 01/15/2015 Last Documented On 5 4:42PM ; [facility] NORMAL FEMALE EXAM SHELL CORE AND MOLDING SUPERVISOR EXAM with VEDA LOVING MD 01/15/2015 Last Documented On 5 4:42PM ; [facility] Normal routine history and p hysical - POST VISIT with VEDA LOVING MD 08/15/2014 Last Documented On 5 10:31AM ; [facility] Respiratory disorder mob in high school; inhaler only when ill: last 2011: albuterol NEW OB EXAM with VEDA LOVING MD 12/18/2013 Last Documented On 4 3:06PM ; [facility] Breast fibrocystic disease SHELL CORE AND MOLDING SUPERVISOR EXAM with VEDA HAMMOND MD 10/07/2013 Last Documented On 4 1:49PM ; [facility] NORMAL FEMALE EXAM SHELL CORE AND MOLDING SUPERVISOR EXAM with VEDA LOVING MD 10/07/2013 Last Documented On 4 1:49PM ; [facility] NORMAL FEMALE EXAM NEW SHELL CORE AND MOLDING SUPERVISOR EXAM with VEDA BALLESTEROS MD 08/17/2012 Last Documented On 3 3:49PM ; [facility] NORMAL FEMALE EXAM NEW SHELL CORE AND MOLDING SUPERVISOR EXAM with TOMMIE AGUSTIN M.D. 05/04/2011 Last Documented On 2 4:47PM ; [facility] Instructions Includes: Instructions for all patient encounters Instructions to patient Instructions for patient : B reast Self Exam discussed and technique reviewed Last Documented On 5 4:32PM ; [facility] Instructions for patient : B reast Self Exam discussed and technique reviewed Last Documented On 4 1:38PM ; [facility] Instructions for patient : B reast Self Exam discussed and technique reviewed Last Documented On 3 3:33PM ; [facility] Discussed Gardasil vaccinati on and recommend vaccination for HPV prevention. Handout given. Patient understands sexual transmission of high-risk HPV and the association with abnormal pap smear and cervical cancer. Recommend to decrease high risk behaviors such as: number or sexual partners and smoking; and to use barrier contracepties Last Documented On 3 3:33PM ; [facility] Instructions for patient : B reast Self Exam discussed and technique reviewed Last Documented On 2 4:37PM ; [facility] Recommend diet and exercise at least 30 min three times per week Last Documented On 2 4:37PM ; [facility] Recommend CBC, TSH, fasting glucose, fasting lipid panel if patient aged 25 or older Last Documented On 2 4:37PM ; [facility] Recommend preventative vacci nation including but not limited to influenza/flu vaccine, DTP, Rubella, Hepatitis B vaccination series Last Documented On 2 4:37PM ; [facility] Medical Equipment - Implanted Devices Includes: Current and historical Devices No Medical Equipment Recorded Medications Includes: Current and historical Medications Current Medications (continue as prescribed) Plus/Iron 27-1MG Oral Tablet 04/07/2016 Pro vider: VEDA LOVING MD Diagnosis: One tablet daily Last Documented On 04/07/2016 12:26PM By VEDA LOVING MD ; [facility] Past Medications on file Plus/Iron 27-1 MG Tablet 04/10/2015 - 017 Provider: VEDA LOVING MD Diagnosis: One tablet daily (may substitute) Last Documented On 04/07/2016 12:12PM By VEDA LOVING MD ; [facility] ValACYclovir HCl 1 GM Tablet 05/20/2014 - 12/16/2014 P rovider: VEDA LOVING MD Diagnosis: One tablet daily Last Documented On 05/20/2014 11:49AM By VEDA LOVING MD ; [facility] Plus/Iron 27-1 MG O R TABS 04/15/2014 - 04/10/2015 Provider: VEDA Milner Diagnosis: (may substitute) Last Documented On 04/10/2015 12:35PM By VEDA LOVING MD ; [facility] Plus/Iron 27-1 MG OR TABS 01/14/2014 - 2014 Provider: DANELLE NANCE MD Diagnosis: Last Documented On 04/15/2014 4:39PM By VEDA LOVING MD ; [facility] valACYclovir HCl 1 GM OR TABS 12/23/2013 - 05/20/2014 Provider: VEDA LOVING MD Diagnosis: Si po bid x 1 day. Last Documented On 05/20/2014 11:49AM By VEDA LOVING MD ; [facility] Daily Value Multivitamin OR TABS 08/17/2012 - 02/15/20 14 Provider: Diagnosis: Last Documented On 02/14/2014 2:50PM By DONG WAGNER LPN ; [facility] Medications Administered Includes: Administered Medications in patient's chart Medications Administered Diagnosis Date Pro vider influenza vaccine IM INJ VACCIN FOR INFLUENZA 12/19/19 14 VEDA LOVING MD 0.1ml right arm. tolerated well./tyk Last Documented On 4 3:41PM By DONG WAGNER LPN ; [facility] RhoGAM Ultra-Filtered Plus 300 MCG IM INJ 04/15/2014 VEDA LOVING MD Given to pt in right gluteal. Pt tolerat ed it well. No reaction. MR Last Documented On 5 4:55PM By MATT PRYOR ; [facility] Results Includes: Results from 07/02/2023 through 07/01/2024 No Results Recorded For Specified Dates History of Present Illness History of Present Illness not supported for this document type No History of Present Illness Recorded Social History Description Last Updated Social history unchanged 01/15/2015 Last Documented On 5 4:42PM ; [facility] Smoking status : Never smoker 01/15/2015 Last Documented On 5 4:42PM ; [facility] Alcohol use 12/18/2013 Last Documented On 4 3:36PM ; [facility] Alcohol use: 2 drinks or less per day oc c alcohol consumption 10/07/2013 Last Documented On 4 1:49PM ; [facility] Daily tea consumption 2 cups 10/07/2013 Last Documented On 4 1:49PM ; [facility] In monogamous relationship 10/07/2013 Last Documented On 4 1:49PM ; [facility] Non-smoker 10/07/2013 Last Documented On 4 1:49PM ; [facility] Sexually active with partners in the t year 10/07/2013 Last Documented On 4 1:49PM ; [facility] Pt prefers to be called: Nanita 4 Last Documented On 4 1:49PM ; [facility] Sexually active doing natural family ioana nning per pt 08/17/2012 Last Documented On 3 3:49PM ; [facility] Daily cola consumption was one cans per day WILL HAVE 1 TEA OR SODA A DAY 08/17/2012 Last Documented On 3 3:49PM ; [facility] Age of 1st intercourse was was 22 2011 Last Documented On 2 4:47PM ; [facility] Not using drugs 05/04/2011 Last Documented On 2 4:47PM ; [facility] Procedures and Surgical History Surgical History Last Updated History of surgery summer. tympanoplasty 12/18/2013 Last Documented On 4 3:36PM ; [facility] Surgical / procedural history TUBES IN E ARS at age 2-3; 2-3 surgeries 08/17/2012 Last Documented On 3 3:49PM ; [facility] No Bilateral salpingo-oophorectomy Last Documented On 2 4:47PM ; [facility] No Breast Biopsy 05/04/2011 Last Documented On 2 4:47PM ; [facility] No Dilation + Curettage 05/04/2011 Last Documented On 2 4:47PM ; [facility] No Ectopic surgery 05/04/2011 Last Documented On 2 4:47PM ; [facility] No Endometrial Ablation 05/04/2011 Last Documented On 2 4:47PM ; [facility] No history of appendectomy 05/04/2011 Last Documented On 2 4:47PM ; [facility] No history of cholecystectomy 05/04/2011 Last Documented On 2 4:47PM ; [facility] No history of Loop electrode excision of cervix (LEEP) 05/04/2011 Last Documented On 2 4:47PM ; [facility] No history of total abdominal hysterecto my 05/04/2011 Last Documented On 2 4:47PM ; [facility] No history of tubal ligation 05/04/2011 Last Documented On 2 4:47PM ; [facility] No history of vaginal hysterectomy Last Documented On 2 4:47PM ; [facility] No Laparoscopic Hysterectomy 05/04/2011 Last Documented On 2 4:47PM ; [facility] No Ovarian Cystectomy 05/04/2011 Last Documented On 2 4:47PM ; [facility] No Tonsillectomy 05/04/2011 Last Documented On 2 4:47PM ; [facility] Medical History Includes: Medical History in patient's chart Description Last Updated 1 P 1 01/15/2015 Last Documented On 5 4:42PM ; [facility] No recent change in medical history 01/04 Last Documented On 5 4:42PM ; [facility] Contraception: natural family planning 1 03/17/2014 Last Documented On 5 4:42PM ; [facility] Sexually active 01/15/2015 Last Documented On 5 4:42PM ; [facility] Baby thriving female vonda 8lbs 4 oz 07/04/2014 at 38 6/7 wks; STA/TK 08/15/2014 Last Documented On 5 10:31AM ; [facility] Fertility awareness method (FEM) 015 Last Documented On 5 10:31AM ; [facility] is breast-feeding 08/15/2014 Last Documented On 5 10:31AM ; [facility] is not bottle-feeding 08/15/2014 Last Documented On 5 10:31AM ; [facility] Last pap smear date 10/07/2013 08/15/2014 Last Documented On 5 10:31AM ; [facility] History of allergic rhinitis mob and fob seasonal 12/18/2013 Last Documented On 4 3:36PM ; [facility] History of depression mobs family 2013 Last Documented On 4 3:36PM ; [facility] History of hematologic disorder 12/19/19 14 Last Documented On 4 3:36PM ; [facility] LMP: 10/05/2013 10/07/2013 Last Documented On 4 1:49PM ; [facility] Result: normal 10/07/2013 Last Documented On 4 1:49PM ; [facility] PRIMARY CARE PROVIDER : DANELLE NANCE 08/04 Last Documented On 3 3:49PM ; [facility] Family History Includes: Family History in patient's chart Description Last Updated No family history of malignant female br east neoplasm 10/07/2013 Last Documented On 4 1:49PM ; [facility] No family history of malignant neoplasm of the large intestine 10/07/2013 Last Documented On 4 1:49PM ; [facility] No family history of malignant neoplasm of the ovary 10/07/2013 Last Documented On 4 1:49PM ; [facility] Family history unchanged THY ROID PROBLEMS in her mom and maternal aunts-- underactive, not cancer 08/17/2012 Last Documented On 3 3:49PM ; [facility] Spouse name: JAIMIE 05/04/2011 Last Documented On 2 4:47PM ; [facility] No family history of diabetes mellitus 0 05/04/2011 Last Documented On 2 4:47PM ; [facility] No family history of heart disease Last Documented On 2 4:47PM ; [facility] No family history of hypercholesterolemi a 05/04/2011 Last Documented On 2 4:47PM ; [facility] No family history of hypertension 2011 Last Documented On 2 4:47PM ; [facility] No family history of uterine cancer 04/07 Last Documented On 2 4:47PM ; [facility] Review of Systems Review of Systems not [...] Patient Last Documented On 4 3:39PM ; [facility] Td 1 Complete (Reported) Henny ent Last Documented On 2 4:35PM ; [facility] Allergies Includes: Active, inactive, and resolved Allergies Substance Type Reaction Onset Date Resolved Date Statu s Sulfa Antibiotics Allergy 05/04/2011 A ctive Last Documented On 10:07AM ; [facility] Clinical Notes Includes: Signed Clinical Notes starting from 03/25/2022 No Clinical Notes Recorded
--- OUTSIDE RECORDS SUMMARY | 2024-07-01 13:27 | XMS_ITS | Referral Summary ---
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
--- OUTSIDE RECORDS SUMMARY | 2024-07-01 13:27 | XMS_ITS | Clinical Summary ---
Author Organization [facility] Address [address] [place] [address] Care Team Providers Care Cost Recorder Name Role Phone Javier Fragoso MD Primary Care Provider [phone] Source Comments [facility],non-owned Affiliates and Associated Physician Practices is amultiple site organization consisting of ambulatory clinics and hospital sitesin [place], [place], [place] and [place]. This disclosure is being madepursuant to the Care Everywhere program and may not contain all information available regarding this patient. Last updated 17.[facility] Allergies Active Allergy Reactions Criticality Noted Date [...] on file Legal Sex Female 8:09 AM LACQUER COATER Gender Identity Not on file Sexual Orientation Not on file Last Filed Vital Signs Vital Sign Reading Time Taken Comments Blood Pressure 120/84 05/01/2017 10:47 AM LACQUER COATER Pulse 121 05/01/2017 10:47 AM LACQUER COATER Temperature 36.8 C (98.3 F) 05/01/2017 10:47 AM LACQUER COATER Respiratory Rate 17 04/01/2016 9:07 AM LACQUER COATER Oxygen Saturation 99% 04/01/2016 9:07 AM LACQUER COATER Inhaled Oxygen Concentration - - Weight 61.2 kg (135 lb) 05/01/2017 10:47 AM LACQUER COATER Height 167.6 cm (5' 6 ) 05/01/2017 10:47 AM LACQUER COATER Body Mass Index 21.79 05/01/2017 10:47 AM LACQUER COATER Plan of Treatment Health Maintenance Due Date [...] patient's age to complete this topic Insurance [facility] [address] [place] [id number] Care Teams Cost Recorder Relationship Specialty Start Date End Date Javier Fragoso MD [address] [facility] [address] [place] [address] PCP - General Family Medicine 04/01/16
--- OUTSIDE RECORDS SUMMARY | 2024-07-01 13:27 | XMS_ITS | Clinical Summary ---
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
--- OUTSIDE RECORDS SUMMARY | 2024-07-01 13:27 | XMS_ITS | Clinical Summary ---
Author Organization [facility] Address [address] [place] [phone] Phone Care Team Providers Care Staff Readiness Officer Name Role Phone Unavailable Primary Care Provider Unavailabl e Encounters Date Type Department Care Team Description 06/18/2024 External Device Data STL ABSTRACTION Provider, Abstract 06/06/2024 12:45 PM CDT - 06/06/2024 11:59 PM CDT Hospital Encounter [facility] [address] [place] [phone] Zafar Gutiérrez MD Discharge Disposition: Home or Self Care 05/22/2024 External Device Data STL ABSTRACTION Provider, Abstract 05/22/2024 External Device Data STL ABSTRACTION Provider, Abstract 05/11/2024 External Device Data STL ABSTRACTION Provider, Abstract 05/10/2024 External Device Data STL ABSTRACTION Provider, Abstract 05/09/2024 7:30 AM INDEPENDENT PRODUCER - 05/09/2024 11:59 PM INDEPENDENT PRODUCER Hospital Encounter [facility] David Arango [address] [place] [phone] Mary Carmen Choudhary MD Discharge Disposition: Home or Self Care 05/07/2024 External Device Data STL ABSTRACTION Provider, Abstract 04/23/2024 External Device Data STL ABSTRACTION Provider, Abstract 04/11/2024 7:30 AM INDEPENDENT PRODUCER - 04/11/2024 11:59 PM INDEPENDENT PRODUCER Hospital Encounter [facility] David Arango [address] [place] [phone] Chance Palumbo MD Discharge Disposition: Home or Self Care from Last 3 Months Social History Tobacco Use Types Packs/Day Years Used Date Smoking Tobacco: Never Assessed Comments Unknown Sex and Gender Information Value Date Recorded Sex Assigned at Not on file Legal Sex Female 10:53 AM INDEPENDENT PRODUCER Gender Identity Not on file Sexual Orientation Not on file Plan of Treatment Health Maintenance Due Date Last Done Comments HEPATITIS B VACCINES (1 of 3 - 19+ 3-dose series) 2004 HPV/Cotest (21-29) 2006 CERVICAL CANCER SCREENING 11/13/2015 HPV/Cotest (30-65) 11/13/2015 PAP SMEAR 11/13/2015 DTAP/TDAP/TD VACCINES (2 - T d or Tdap) 07/09/2022 07/09/2012 INFLUENZA VACCINE (#1) 2023 HPV VACCINES Aged Out No longer eligi ble based on patient's age to complete this topic Procedures Procedure Name Priority Date/Time Associated Diagnosis Comments US OB FOLLOW UP PER FETUS Routine 06/06/2024 1:16 PM CDT Multigravida of advanced maternal age in third trimester US OB FOLLOW UP PER FETUS Routine 05/09/2024 8:01 AM INDEPENDENT PRODUCER Multigravida of advanced maternal age in second trimester US OB FOLLOW UP + TV Routine 04/11/2024 8:09 AM INDEPENDENT PRODUCER Placenta previa antepartum Multigravida of advanced maternal [...] BERTRAND Study Date: 06/06/2024 12:51pm Pat. NO: [id number] Referring MD: REMBERTO JOAQUIN MD Site: [facility] Physician: Lexii Alfaro RDMS : 1985 Age: 38 ----- INDICATION ----- Advanced Maternal Age (AMA), Multigravida Asthma Complicating CODING ----- Diagnoses O99.513: Diseases of the respiratory system complicating O09.523: Supervision of elderly multigravida Z36.3: Encounter for screening for malformations Z3A.36: Weeks of gestation Procedures 73131: Ultrasound, uterus, real time with image documentation, [...] 7 lb 11 oz EFW by Hadlock ([id number]) Extremities / Bony Struc Biometry: FL / [...] and date of were verified by the independent producer prior to the exam IMPRESSION ----- IUP at 36w 1d cephalic presentation LGA growth with EFW 3474 g (95%), AC >99% with appropriate interval growth Normal amniotic fluid volume, AMADO 14.6 cm, MVP 6.9 cm Recommendations: - Follow up as clinically indicated Procedure Note Ayla Luther MD - 06/06/2024 STL FOLLOW UP ----- Pat. Name:Naresh BERTRAND Date:06/06/2024 12:51pm Pat. NO: [id number] MD:REMBERTO JOAQUIN [facility] RDMS :1985Age:38 ----- INDICATION ----- Advanced Maternal Age (AMA), Multigravida Asthma Complicating CODING ----- Diagnoses O99.513: Diseases of the respiratory systemcomplicating O09.523: Supervision of elderly multigravida Z36.3: Encounter for screening formalformations Z3A.36: Weeks of gestation Procedures 19295: Ultrasound, uterus, real time withimage documentation, follow up, transabdominal approach per fetus HISTORY ----- OB History 5. Para 3 T3A1L3 METHOD ----- Transabdominal ultrasound examination ----- Helm . Number of fetuses: 1 DATING ----- GA by prior [id number] w + 1 d AMBROCIO by prior [...] 7 lb 11 oz EFW by Hadlock ([id number]) Extremities / Bony Struc Biometry: FL / [...] and date of were verified by the independent producer prior tothe exam IMPRESSION ----- IUP at 36w 1d cephalic presentation LGA growth with EFW 3474 g (95%), AC >99% with appropriate intervalgrowth Normal amniotic fluid volume, AMADO 14.6 cm, MVP 6.9 cm Recommendations: - Follow up as clinically indicated us Zafar Gutiérrez MD US ORDERABLES Final Resu lt * US OB FOLLOW UP + TV (04/11/2024 8:09 AM INDEPENDENT PRODUCER) Anatomical Region Laterality Modality Pelvis Ultrasound 04/11/2024 7:38 AM INDEPENDENT PRODUCER Narrative 04/11/2024 8:12 AM INDEPENDENT PRODUCER STL FOLLOW UP ----- Pat. Name: PATSY BERTRAND Study Date: 04/11/2024 7:38am Pat. NO: [id number] Referring MD: REMBERTO JOAQUIN MD Site: [facility] Physician: Chani Medel RDMS : 1985 Age: 38 ----- INDICATION ----- Advanced Maternal Age (AMA), Multigravida Asthma Complicating CODING ----- Diagnoses Z3A.28: Weeks of gestation O99.513: Diseases of the respiratory system complicating O09.523: Supervision of elderly multigravida Z36.3: Encounter for screening for malformations Procedures 65903: Ultrasound, uterus, real time with image documentation 07904: Ultrasound, uterus, real time with image documentation, [...] 3 lb 3 oz EFW by Hadlock ([id number]) Head / Face / Neck Biometry: Robotic Welding Operator 4.5 mm Extremities / Bony Struc [...] and date of were verified by the independent producer prior to the exam. Meri FERNANDEZ was present for the transvaginal ultrasound and served as a cold mill supervisor. IMPRESSION ----- Impression: - Helm viable intrauterine [...] Pat. Name:Naresh BERTRAND Date:04/11/2024 7:38am Pat. NO: [id number] MD:REMBERTO JOAQUIN [facility] RD[facility] :1985Age:38 ----- INDICATION ----- Advanced Maternal Age (AMA), Multigravida Asthma Complicating CODING ----- Diagnoses Z3A.28: Weeks of gestation O99.513: Diseases of the respiratory systemcomplicating O09.523: Supervision of elderly multigravida Z36.3: Encounter for screening formalformations Procedures 52681: Ultrasound, uterus, real time withimage documentation 49697: Ultrasound, uterus, real time withimage documentation, follow up, transabdominal approach per fetus HISTORY ----- OB History 5. Para 3 T3A1L3 METHOD ----- Transabdominal and transvaginal ultrasound examination ----- Helm . Number of fetuses: 1 DATING ----- GA by prior [id number] w + 1 d AMBROCIO by prior [...] 3 lb 3 oz EFW by Hadlock ([id number]) Head / Face / Neck Biometry: Robotic Welding Operator 4.5mm Extremities / Bony Struc Biometry: [...] and date of were verified by the independent producer prior tothe exam. Meri FERNANDEZ was present [...]
== END 2024-07-01 12:15 | disposition home or self-care (01) ==
PROVIDERS: Admitting Provider Obstetrics & Gynecology Gynecology; PCP Nurse Practitioner Adult Health; Visit Provider Obstetrics & Gynecology Gynecology
DX: O72.1 Other immediate postpartum hemorrhage (principal)
CPT/HCPCS: G0378; G0379

== ENCOUNTER 2025-02-19 15:46 | Outpatient (CLI) | payer BC, SELFPAY ==
--- OUTSIDE RECORDS SUMMARY | 2025-02-19 18:05 | XMS_ITS | Clinical Summary ---
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 Gender Identity Not on file Sexual Orientation [...] A M CDT Height 167.6 cm (5' 6) 07/12/2022 9:21 AM CDT Body Mass Index 24.79 07/12/2022 9:21 AM CDT Plan of Treatment Health Maintenance Due Date Last Done Comments Cervical Cancer Screening 1985 Depression Screening 1985 Hepatitis C Screening 1985 Varicella Vaccines (1 of 2 - 13+ 2-dose series) 1998 Hepatitis B Screening 11/13/2003 Regular Well Visit/Exam 18-64 11/13/2003 HPV Vaccines (1 - 3-dose SCD M series) 2012 Influenza Vaccine (#1) 2024 8, 01/23/2017, 12/28/2014 DTaP/Tdap/Td Vaccine (4 - Td or Tdap) 01/23/2027 01/23/2017, 07/05/2014, 07/09/2012 Pneumococcal vaccine <65 Aged Out 07/05/2014 No longer eligible based on patient's age to complete this topic Insurance [facility] PPO Care Teams Account Advisor Relationship Specialty Start Date End Date Dick Koch MD [address] [facility] [place] [address] PCP - General 04/27/11 Manjit Luo MD [address] [place] [address] Referring Physician Obstetrics and Gynecology 10/15/18
--- OUTSIDE RECORDS SUMMARY | 2025-02-19 18:05 | XMS_ITS | Clinical Summary ---
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
--- OUTSIDE RECORDS SUMMARY | 2025-02-19 18:06 | XMS_ITS | Clinical Summary ---
Author Organization [facility] Address [address] [place] [address] Care Team Providers Care Blindstitch Lining Feller Name Role Phone Javier Fragoso MD Primary Care Provider Source Comments [facility],non-owned Affiliates and Associated Physician Practices is amultiple site organization consisting of ambulatory clinics and hospital sitesin [place], [place], [place] and [place]. This disclosure is being madepursuant to the Care Everywhere program and may not contain all information available regarding this patient. 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 Gender Identity Not on file Sexual Orientation Not on file Last Filed Vital Signs Vital Sign Reading Time Taken Comments Blood Pressure 120/84 05/01/2017 10:47 AM INDUSTRIAL CONTROLLER Pulse 121 05/01/2017 10:47 AM INDUSTRIAL CONTROLLER Temperature 36.8 C (98.3 F) 05/01/2017 10:47 AM INDUSTRIAL CONTROLLER Respiratory Rate 17 04/01/2016 9:07 AM INDUSTRIAL CONTROLLER Oxygen Saturation 99% 04/01/2016 9:07 AM INDUSTRIAL CONTROLLER Inhaled Oxygen Concentration - - Weight 61.2 kg (135 lb) 05/01/2017 10:47 AM INDUSTRIAL CONTROLLER Height 167.6 cm (5' 6) 05/01/2017 10:47 AM INDUSTRIAL CONTROLLER Body Mass Index 21.79 05/01/2017 10:47 AM INDUSTRIAL CONTROLLER Plan of Treatment Health Maintenance Due Date Last Done Comments HIV SCREENING 2000 HEPATITIS C SCREENING 11/08/2003 DTAP/TDAP/TD VACCINES (1 - Tdap) 2004 HEPATITIS B VACCINE (1 of 3 - 19+ 3-dose series) 2004 PAP SMEAR 2006 HPV VACCINE (1 - 3-dose SCDM series) 2012 DEPRESSION SCREENING 03/06/2024 COVID-19 VACCINE (1 - 2024-2 6 season) 2024 INFLUENZA VACCINE (#1) 2024 ZOSTER VACCINE (1 of 2) 11/13/2035 [...] patient's age to complete this topic [place] [address] [place] [address] [facility] SELF PAY NO INSURANCE Member Subscriber Plan / Payer (Ef fective for All Dates) Name:Patsy Bertrand Member ID:Not on file Relation to Subscriber:Not on file Name:PATSY BERTRAND Subscriber ID:Not on file (Home) Address: [address] [place] [address] Payer ID:Not on file Group ID:Not on file Type:Self Pay Address: [place], [place] Care Teams Blindstitch Lining Feller Relationship Specialty Start Date End Date Javier Fragoso MD [address] [facility] [address] [place] [address] PCP - General Family Medicine 04/01/16
--- OUTSIDE RECORDS SUMMARY | 2025-02-19 18:06 | XMS_ITS | Data Portability ---
Author Organization [facility] Address [address] [place] [address] Assessment No assessment recorded. Plan of Treatment [...] shannan of ThinP rep Pap Test slide bill connor, the slide was revie wed by a Cytot echno logis t and/o r Patho logis tJesse Hayden A A S S A Y S R E P O R T TEST NAME KEVEN BROWN ----- ---- ----- -- HPV High Risk [...] and labor atory findi ngs. See https ://Figment/s ites/ defau lt/fi les/2 018-0 3/AW- 46672 _002_ 01.pd f for [facility] infor matio n. Test perfo rmed by Assoc iated Patho logis [employer], d/b/a [facility], [address] , [place] [address] , Harriet Barrientos ra, DO, Labor atory [facility]. HPV High Risk *HPV NOT DETEC ADRIANA [...] and labor atory findi ngs. See https ://Figment/s ites/ defau lt/fi les/2 018-0 3/AW- 24318 _002_ 01.pd f for furth er infor matio n. Test perfo rmed by Assoc i[facility], d/b/a [facility], [address], [place] [address] , Harriet Barrientos ra, DO, [facility]. End of t Techn ical servi mary beth provi ded by [facility] [employer], d/b/a [facility], [address] [place] [address] Jim Montano MD, [facility]. Case revie wed and diagn osis rende red at [facility], d/b/a [facility], [address] [place] [address] Jim Montano MD, [facility]. CONFI DENTI AL Not Available [facility], [place], [address], 09/22/2019 11:15:08 09/17/19 20 09/22/2019 HPV DNA, high- risk HPV high risk NOT DETECT ED normal Not Available [facility] [address] [place] [address], [place], [address], 09/22/2019 11:15:08 Result Notes None recorded. Problems Name Problem SNOMED Code Status Onset Date Resolution Date Notes Provider Name and Address Organization Details Recorded Time Rubella screening status 574188526 Active 2018 Encounter for screening , unspecifi ed;Record ed Elsewhere : No Locati on: [facility] So urce: EHR Chron ic: N Practic e ID: [id number] Bill able Time: 04:00:00 PM Not Available [facility] 0 15:02:52 Normal in multigrav dania [id number] 4106 Active 2018 Encounter for suprvsn of normal , third trimester ;Practice ID: 0001 Not Available [facility] 0 15:02:52 Term delivered 87102775 Active 2019 Encounter for full-term uncomplic ated delivery; Practice ID: 0001 Not Available [facility] 0 15:02:52 Single live from woo 468958290 Active 2019 Single live ;Pra ctice ID: 0001 Not Available [facility] 0 15:02:52 Gestation period, 40 weeks 64713479 Active 2019 40 weeks gestation of ;Practice ID: 0001 Not Available [facility] 0 15:02:52 Lochia finding Active 2019 Encounter for routine postpartu m follow-up ;Practice ID: 0001 Not Available [facility] 0 15:02:52 Problem Notes None recorded. Procedures Surgical History Date Name Laterality Status Provider Name and Address Organization Details Recorded Time 09/17/19 20 Date of Last Pap Smear completed Sheila Mcneill [facility] 10/08/2020 13:13:27 06/05/19 17 Dilation [address]urettage completed [facility] 09/16/2019 14:21:39 02/04/20 16 Dilation [address] Curettage completed [facility] 09/16/2019 14:21:29 tympanoplasty with mastoidectomy, with ossicular chain reconstruction completed [facility] 09/16/2019 14:23:00 Imaging Results None [...] Not available Not available Not available 09/16/2019 [id number] SNOMED [facility] 0 14:23:20 Medications Name Sig Start Date Stop Date Status Note LastModified by Organization Details LastModified Time Zyrtec 10 mg tablet take 1 tablet by oral route every day active Prescribed Elsewhere: Yes Locatio n: [facility] Jimmy fy By: [email or web address] En counter DateTime: 01/03/2019 04:00:00 PM Not [...] tablet active Prescribed Elsewhere: Yes Locatio n: [facility] Jimmy fy By: En counter DateTime: 01/03/2019 [...] index (BMI) Body weight Body temperature Systolic And Diastolic Provider Name and Address Organization Details Last Updated DateTime 09/17/2019 169.55 cm 23.7 kg/m2 77642.8 6 g 98.7 [degF] 102/82 mm[Hg] Jacinta Monreal [facility] 0 11:28:12 Date Recorded Body height Body mass index (BMI) Body weight Systolic And Diastolic Provider Name and Address Organization Details Last Updated DateTime 10/08/2020 165.1 cm 25.3 kg/m2 82480.04 g 119/78 mm[Hg] Tori Andrews, JASON- [address], [place], [address], [facility] 10/08/2020 13:42:34 Social History None recorded. Functional Status Question Answer Note LastModified by Organizat ion Details LastModified Time What is your level of alcohol consumption? Occasional [id number] Information not available 01/07/2020 What is your exercise level? Occasional [id number] Information not available 01/07/2020 Mental Status None recorded. Family History Relationship Description Onset Age of this Age Resolved Age Notes LastModified by Organization Details LastModified Time Mother Depressive disorder [email or web address] Not available 2019 14:19:26 Mother Anxiety disorder jgumber Not available 2019 14:19:41 Mother Migraine [email or web address] Not availab le 10/08/2020 12:28:39 Maternal Aunt Depressive disorder jgumber Not available 2019 14:19:26 Maternal Aunt Anxiety disorder jgumber Not available 2019 14:19:41 Brother Migraine [email or web address] Not availa ble 10/08/2020 12:28:39 Maternal Grandmother Malignant neoplasm of lung jgumber Not available 2019 14:20:17 Paternal Grandmother Malignant neoplasm of lung jgumber Not available 2019 14:20:17 Maternal Grandfather Chronic obstructive pulmonary disease [email or web address] Not available 10/08 12:28:39 Medical History Condition [...] Diagnosis SNOMED-CT Code Diagnosis ICD10 Code Diagnosis IMO Codes Diagnosis Note [id number] Autumn Cain CNM [address] [address] 09/17/2019 11:11:39 09/24/2019 10:22:12 Gynecologic examination [id number] Z01.419 Take Calcium with Vitamin D 1200mg [...] paper copy of today's plan if desired. [id number] Tori Andrews , [facility] [address],[facility] [place] [address] 10/08/2020 12:28:24 10/08/2020 13:57:42 Gynecologic examination [id number] Z01.419 Take Calcium with Vitamin D 1200mg [...] today's plan if desired. Pap/hpv hx wnlPap/hpv 2019 wnlOpts for q3-5yr pap/hpv testing per asccp unless otherwise indicated. Decline std screeningC onsidering menstrual cupNo issue or concerns this year. Health Concerns Section Related Observation LastModified by Organization Detai ls LastModified Time None Recorded Concern Status LastModified by Organization Details LastModified Time None Recorded Advance Directives Directive None Recorded Payers Insurance Date Sequence Insurance Name Policy Number Policy Claire Covered Member ID Claire Member ID Guarantor Name 10/11/2020 1 [facility] (PPO) [id number] Patsy Pruitto [id number] Patsy Pruitto Notes Date Note Type Note Provider Name and Address Organization Details Recorded Time 0 text/html Annual GYNReported by PatientGenitourinary symptomsFor menstrual cycle, patient reportsnormal menses. For urinary symptoms, patient reportsno hematuriaandno incontinence. For vulva, patient reportsno genital lesion. For vagina, patient reportsnormal vaginal discharge.Breast symptomsFor breast, patient reportsno breast pain,no breast lump, andno nipple discharge.Endocrine symptomsFor sexual complaints, patient reportsno sexual complaints,no pain during intercourse, andnormal libido. For menopausal symptoms, patient reportsno menopausal symptomsandnormal vaginal lubrication.Psychological symptomsFor psychological symptoms, patient reportsno depression,no anxiety, andno pmdd. Autumn Cain [facility], [facility] 09/17/2019 11:45:17 1 text/html Annual GYNReported by PatientHistoryFor history, patient reportsno gynecologic complaints.Genitourinary symptomsFor menstrual cycle, patient reportsnormal menses. For urinary symptoms, patient reportsno hematuriaandno incontinence. For vulva, patient reportsno genital lesion. For vagina, patient reportsnormal vaginal discharge.Breast symptomsFor breast, patient reportsno breast pain,no breast lump, andno nipple discharge.ContraceptionFo r current contraception, patient reportssatisfied with current contraception(natural family planning methods used.).Endocrine symptomsFor sexual complaints, patient reportsno sexual complaints,no pain during intercourse, andnormal libido. For menopausal symptoms, patient reportsno menopausal symptomsandnormal vaginal lubrication.Psychological symptomsFor psychological symptoms, patient reportsno depression,no anxiety, andno pmdd.Preventative measuresFor preventive measures, patient reportsencourage self breast examination,encourage regular exercise,encourage no tobacco use, andencourage regular mammograms starting age 40. Tori Andrews, [facility]- [address], [place], [address], [facility] 10/08/2020 13:45:04 OBGyn Episode Ob Episode Information Episode Created Date Number of Fetuses Patient Bloodtype Patient rh Status Prepregnancy Weight lbs Domestic Partner Domestic Partner Phone Father Name Code And Test Clerk Status 09/17/19 20 1 CLOSED Fetus Data [...] Domestic Partner Domestic Partner Phone Father Name Code And Test Clerk Status 09/17/19 20 1 CLOSED Fetus Data [...] Confirmed By Final Rosalio Confirmed Date Final Rosailo Date Ultra Sound Latest Days Gestation 0 [...] Domestic Partner Domestic Partner Phone Father Name Code And Test Clerk Status 09/17/19 20 1 CLOSED Fetus Data [...] Domestic Partner Domestic Partner Phone Father Name Code And Test Clerk Status 09/17/19 20 1 DELETED Rosalio Calculation [...] Domestic Partner Domestic Partner Phone Father Name Code And Test Clerk Status 09/17/19 20 1 CLOSED Fetus Data [...]
== END 2025-02-19 15:47 | disposition home or self-care (01) ==
LOC: ANHBWCLAB 15:47
PROVIDERS: PCP Nurse Practitioner Adult Health; Visit Provider Obstetrics & Gynecology Gynecology
DX: E55.9 Vitamin D deficiency, unspecified (principal)
CPT/HCPCS: 36415; 82306